=== PATIENT | male | born 1970 | race Caucasian/White ===

== ENCOUNTER 2016-11-04 13:26 | Emergency (ER) | payer BC ==
--- NOTE | 2016-11-04 13:58 | EDM.PDOC ---
ED HPI GI/ABDOMINAL - General Chief Complaint: Abdominal Pain Stated Complaint: ABD PAIN Time Seen by Provider: 11/04/16 13:38 Source of Information: Reports: Patient, RN notes reviewed - History of Present Illness INITIAL COMMENTS - FREE TEXT/NARRATIVE: 46-year-old male comes in with abdominal pain nausea vomiting. He does have history of chronic pancreatitis. He states he's been having pain off and on for months. This has become much more severe since last evening. Pain is primarily upper mid and left upper abdomen. He's had severe repetitive vomiting since last evening. Unable to sleep last night due to the pain and vomiting. Continues with the nausea vomiting today. No fever or chills. He has had some constipation difficulty. No chest pain or difficulty breathing. States his mouth is starting to get quite dry. 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.) Musculoskeletal History: Reports: Gout Psychiatric History: Reports: Addiction Other Psychiatric History: alcohol abuse - Infectious Disease History Infectious Disease History: Reports: Chicken pox - Past Surgical History GI Surgical History: Reports: Hernia, inguinal (Right side) Social & Family History - Family History HEENT: Reports: Glaucoma Cardiac: Reports: [place]pass, [place], Pacemaker, Other (see below) Other Cardiac Family History: stroke GI: Reports: Pancreatitis Other GI Family History: daughter had pancreas removed Endocrine/Metabolic: Reports: Diabetes, type II Other Endocrine/Metabolic Family History: diet controlled - Tobacco Use Smoking Status *Q: Heavy Tobacco Smoker Years of Tobacco use: 12 Packs/Tins Daily: 0.5 Month Tobacco Last Used: current Second Hand Smoke Exposure: Yes - Caffeine Use Caffeine Use: Reports: Coffee - Alcohol Use Days Per Week of Alcohol Use: 7 Number of Drinks Per Day: 6 Total Drinks Per Week: 42 - Recreational Drug Use Recreational Drug Use: No - Living Situation & Occupation Occupation: employed ED ROS GENERAL - Review of Systems Review Of Systems: See Below Constitutional: Reports: chills. Denies: fever, diaphoresis HEENT: Denies: Throat pain Respiratory: Denies: shortness of breath, wheezing, pleuritic chest pain Cardiovascular: Denies: Chest pain GI/Abdominal: Reports: Abdominal pain (upper midabdomen and left upper quadrant) , Constipation, Decreased appetite, Nausea, Vomiting (repetitive). Denies: Diarrhea Musculoskeletal: Reports: shoulder pain (occasional left shoulder pain) Skin: Reports: no symptoms Neurological: Reports: dizziness, weakness (mild ge). Denies: numbness, tingling ED EXAM, GI/ABD - Physical Exam Exam: See Below General Appearance: alert, moderate distress Throat/Mouth: Other (oral mucosa is dry) Head: atraumatic Neck: supple, full range of motion Respiratory/Chest: no respiratory distress, lungs clear, normal breath sounds Cardiovascular: regular rate, rhythm GI/Abdominal: tenderness (upper midabdomen and left upper quadrant), other ( hepatomegaly) Back Exam: No: CVA tenderness (L), CVA tenderness (R) Extremities: normal inspection. No: pedal edema, leg pain Neurological: alert, oriented, no motor/sensory deficits Skin Exam: Warm, Dry, Normal color Course - Vital Signs Last Recorded V/S: Last Vital Signs Temp 97.1 F 11/04/16 13:36 Pulse 82 11/04/16 16:30 Resp 14 11/04/16 16:30 BP 138/99 H 11/04/16 16:30 Pulse Ox 95 11/04/16 16:30 - Orders/Labs/Meds Orders: Active Orders 24 hr Category Date Time Status Peripheral IV Care [RC] . DIRECTED Care 11/04/16 13:53 Active Peripheral IV Insertion Adult [OM.PC] Stat Oth 11/04/16 13:53 Ordered Labs: Laboratory Tests 11/04/16 11/04/16 Range/Units 13:35 13:35 WBC 10.57 H (4.23-9.07) K/mm3 RBC 4.34 L (4.63-6.08) M/mm3 Hgb 14.6 (13.7-17.5) gm/L Hct 43.6 (40.1-51.0) % MCV 100.5 H (79.0-92.2) fl MCH 33.6 H (25.7-32.2) pg MCHC 33.5 (32.2-35.5) g/dl RDW Std Deviation 52.4 H (35.1-43.9) fL Plt Count 417 H (163-337) K/mm3 MPV 8.8 L (9.4-12.3) fl Neut % (Auto) 84.6 H (34.0-67.9) % Lymph % (Auto) 7.6 L (21.8-53.1) % Kidder % (Auto) 7.3 (5.3-12.2) % Eos % (Auto) 0 L (0.8-7.0) Baso % (Auto) 0.4 (0.1-1.2) % Neut # 8.95 H (1.78-5.38) K/mm3 Lymph # 0.80 L (1.32-3.57) K/mm3 Kidder # 0.77 (0.30-0.82) K/mm3 Eos # 0.00 L (0.04-0.54) K/mm3 Baso # 0.04 (0.01-0.08) K/mm3 Manual Slide Review Abnormal smear Sodium 139 (136-145) mEq/L Potassium 3.8 (3.5-5.1) mEq/L Chloride 99 (98-107) mEq/L Carbon Dioxide 29 (21-32) mEq/L Anion Gap 14.8 (5-15) BUN 9 (7-18) mg/dL Creatinine 0.9 (0.7-1.3) mg/dL Est Cr Clr Drug Dosing 96.35 mL/min Estimated GFR (MDRD) > 60 (>60) mL/min BUN/Creatinine Ratio 10.0 L (14-18) Glucose 161 H (74-106) mg/dL Calcium 8.7 (8.5-10.1) mg/dL Total Bilirubin 0.3 (0.2-1.0) mg/dL AST 17 (15-37) U/L ALT 16 (16-63) U/L Alkaline Phosphatase 201 H (46-116) U/L Total Protein 6.6 (6.4-8.2) g/dl Albumin 2.8 L (3.4-5.0) g/dl Globulin 3.8 gm/dL Albumin/Globulin Ratio 0.7 L (1-2) Amylase 76 (25-115) U/L Lipase 303 (73-393) U/L Meds: Medications Discontinued Medications Generic Name Dose Route Start Last Admin Trade Name Freq PRN Reason Stop Dose Admin Famotidine 20 mg 11/04/16 13:53 11/04/16 14:09 Pepcid IVPUSH 11/04/16 13:54 20 mg ONETIME ONE Administration Hydromorphone HCl 1 mg 11/04/16 13:53 11/04/16 14:08 Dilaudid IVPUSH 11/04/16 13:54 1 mg ONETIME ONE Administration Sodium Chloride 1,000 mls @ 999 mls/hr 11/04/16 14:00 11/04/16 14:10 Normal Saline IV 999 mls/hr ONETIME ÁNGELA Administration Metoclopramide HCl 10 mg 11/04/16 15:06 11/04/16 15:12 Reglan IVPUSH 11/04/16 15:07 10 mg ONETIME ONE Administration Ondansetron HCl 4 mg 11/04/16 13:53 11/04/16 14:09 Zofran IVPUSH 11/04/16 13:54 4 mg ONETIME ONE Administration Sodium Chloride 10 ml 11/04/16 13:53 11/04/16 14:09 Saline Flush FLUSH 10 ml ASDIRECTED PRN Administration Keep Vein Open - Re-Assessments/Exams Free Text/Narrative Re-Assessment/Exam: 11/04/16 15:05 feeling better after Zofran 4 mg IV Pepcid 20 mg IV and some IV fluid. We'll has about 600 cc of the 1 L normal saline to infuse. Am going to also give some Reglan IV. We will do that now. He states he has been constipated for this past week or more so that also could be adding to his discomfort. White blood count very mildly elevated around 11,000. Lipase and amylase today are normal. I have reviewed his CT report from [facility] done on October 21 just over 2 weeks ago. It did show 2 areas of a fluid accumulation, one relatively large. See report for details. Also of note he is waiting to hear from his providers nurse regarding arrangements to have "the area of fluid accumulation drained" resolving by interventional radiology either Isaac or [facility]. discharge instructions as documented Departure - Departure Time of Disposition: 15:43 Disposition: Home, Self-Care 01 Condition: fair Clinical Impression: Pancreatic pseudocyst, Constipation Abdominal pain Qualifiers: Abdominal location: upper abdomen, unspecified Qualified Code(s): R10.10 - Upper abdominal pain, unspecified Vomiting Qualifiers: Vomiting type: unspecified Vomiting Intractability: non-intractable Nausea presence: with nausea Qualified Code(s): R11.2 - Nausea with vomiting, unspecified Instructions: Abdominal Pain, Adult, [id number], Nausea and Vomiting, Adult Referrals: Pepe Sweeney MD [Primary Care Provider] - Forms: ED Department Discharge Additional Instructions: clear liquids until tomorrow morning, then careful bland diet as tolerated, Zofran if needed for further nausea or vomiting, Tylenol 2-3 times daily for mild to moderate discomfort as needed or hydrocodone if needed for more severe pain, do not take Tylenol and hydrocodone at the same time. Do not drive when taking hydrocodone. call Clinic in the morning to check on status of arrangements for drainage of your pseudocyst if you have not heard from the clinic by then, return to ED as needed - My Orders Last 24 Hours: My Active Orders 11/04/16 13:53 Peripheral IV Care [RC] . DIRECTED Peripheral IV Insertion Adult [OM.PC] Stat - Assessment/Plan Last 24 Hours: My Active Orders 11/04/16 13:53 Peripheral IV Care [RC] . DIRECTED Peripheral IV Insertion Adult [OM.PC] Stat
[2016-11-04] MEDS: HYDROmorphone 1 MG/ML Syringe IVPUSH ONE (14:08)
[2016-11-04] MEDS: Famotidine 20 MG/2 ML SDV IVPUSH ONE (14:09)
[2016-11-04] MEDS: Sodium Chloride 0.9% 10 ML Syringe FLUSH PRN (14:09)
[2016-11-04] MEDS: Ondansetron 4 MG/2 ML SDV IVPUSH ONE (14:09)
[2016-11-04] MEDS: Sodium Chloride 0.9% 1,000 ML IV SCH (14:10)
[2016-11-04] MEDS: Metoclopramide 10 MG/2 ML SDV IVPUSH ONE (15:12)
[2016-11-04 16:42] VITALS: BP 138/99
== END 2016-11-04 16:30 | disposition home or self-care (01) ==
LOC: JD.ED 13:26
DX: K86.3 Pseudocyst of pancreas (principal); K59.00 Constipation, unspecified; R11.2 Nausea with vomiting, unspecified; I10 Essential (primary) hypertension; F17.210 Nicotine dependence, cigarettes, uncomplicated; Z79.899 Other long term (current) drug therapy
CPT/HCPCS: 36415; 80053; 82150; 83690; 85025; 96361; 96374; 96375; 99284; J1170; J2405; J2765; J7040; J7050

== ENCOUNTER 2016-11-12 19:16 | Emergency (ER) | payer BC ==
[2016-11-12] MEDS ORDERED: Aspirin 81 MG Tab.Chew PO ONE (19:40)
[2016-11-12] MEDS ORDERED: HYDROmorphone 1 MG/ML Syringe IVPUSH ONE (19:42)
[2016-11-12] MEDS ORDERED: Ondansetron 4 MG/2 ML SDV IVPUSH ONE (19:42)
[2016-11-12] MEDS ORDERED: Sodium Chloride 0.9% 1,000 ML IV SCH (19:45)
[2016-11-12] MEDS: Nitroglycerin 0.4 MG Tab.SL SL PRN ×3 (19:47→20:32)
--- NOTE | 2016-11-12 19:48 | EDM.PDOC ---
ED HISTORY OF PRESENT ILLNESS - General Chief Complaint: Chest Pain Stated Complaint: CHEST PAINS Time Seen by Provider: 11/12/16 19:25 Source of Information: Reports: Patient History Limitations: Reports: No limitations - History of Present Illness INITIAL COMMENTS - FREE TEXT/NARRATIVE: This is a 46 y/o male. He was sitting watching TV when he had a gradual onset of substernal chest pain. It got worse and seemed to go to his neck and both his arms and axilla areas. Mild SOB, no nausea or vomiting noted. No sweating noted. He was lightheaded. He was brought to the ER for evaluation. The pain has decreased some but he describes it as 10/10. He does not appear to be in distress during the interview and exam. Deep breathing seems to make it worse to night. Pushing on the epigastric area also seems to make it worse. He did eat just before this some toast and a little bit of lasagna. He does have a hx of alcohol abuse and chronic pancreatitis and has been seen here several times for the flare up of his pancreas. Some where in the hx he tells me he has a pancreatic cyst. - Related Data Allergies/ADRs: Allergies Allergy/AdvReac Type Severity Reaction Status Date / Time No Known Allergies Allergy Verified 10/24/16 16:59 Home Meds: Home Meds Magnesium Chloride [Slow-Mag] 71.5 mg PO DAILY #60 tablet. 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.) Other Gastrointestinal History: 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 Musculoskeletal History: Reports: Gout Psychiatric History: Reports: Addiction Other Psychiatric History: alcohol abuse - Infectious Disease History Infectious Disease History: Reports: Chicken pox - Past Surgical History GI Surgical History: Reports: Hernia, inguinal Social & Family History - Family History Family Medical History: Noncontributory HEENT: Reports: Glaucoma Cardiac: Reports: [place]pass, [place], Pacemaker, Other (see below) Other Cardiac Family History: stroke GI: Reports: Pancreatitis Other GI Family History: daughter had pancreas removed Endocrine/Metabolic: Reports: Diabetes, type II Other Endocrine/Metabolic Family History: diet controlled - Tobacco Use Smoking Status *Q: Current Every Day Smoker Years of Tobacco use: 15 Packs/Tins Daily: 1 Month Tobacco Last Used: current Second Hand Smoke Exposure: Yes - Caffeine Use Caffeine Use: Reports: None - Alcohol Use Days Per Week of Alcohol Use: 7 Number of Drinks Per Day: 6 Total Drinks Per Week: 42 - Recreational Drug Use Recreational Drug Use: No - Living Situation & Occupation Occupation: employed ED ROS GENERAL - Review of Systems Review Of Systems: See Below Constitutional: Reports: malaise, fatigue. Denies: fever, chills HEENT: Reports: No symptoms Respiratory: Denies: shortness of breath, cough Cardiovascular: Reports: Chest pain. Denies: Edema Endocrine: Reports: no symptoms GI/Abdominal: Reports: Abdominal pain, Constipation, Decreased appetite. Denies : Nausea, Vomiting : Reports: no symptoms Musculoskeletal: Reports: no symptoms Skin: Reports: no symptoms Neurological: Reports: no symptoms Psychiatric: Reports: No symptoms Hematologic/Lymphatic: Reports: no symptoms Immunologic: Reports: no symptoms ED EXAM, GENERAL - Physical Exam Exam: See Below Exam Limited By: No limitations General Appearance: alert, WD/WN, no apparent distress Eye Exam: bilateral eye: normal inspection Ears: normal external exam Nose: normal inspection Throat/Mouth: Normal inspection, Normal lips, Normal voice, No airway compromise Head: normocephalic Neck: normal inspection, supple Respiratory/Chest: no respiratory distress, lungs clear, normal breath sounds Cardiovascular: regular rate, rhythm, no murmur, tachycardia GI/Abdominal: no distention, guarding, tender, other (Decrease bowel sounds noted. Very tender in the epigastric area and palpation there seems to increase his substernal chest pain. Lower abdomen does not appear tender.) Back Exam: full range of motion Extremities: normal inspection, normal range of motion Neurological: alert, oriented Psychiatric: flat affect Skin Exam: Warm, Dry. No: Diaphoretic EKG INTERPRETATION EKG Interpretation Comments: his EKG shows a sinus rhythm with tachycardia he does not appear to have an ST elevation and no significant ST depression noted. He might have a slightly prolonged QT interval. There are no acute changes noted Course - Vital Signs Last Recorded V/S: Last Vital Signs Temp 96.9 F 11/12/16 19:25 Pulse 107 H 11/12/16 19:25 Resp 22 H 11/12/16 19:25 BP 121/94 H 11/12/16 20:32 Pulse Ox 94 L 11/12/16 19:25 - Orders/Labs/Meds Orders: Active Orders 24 hr Category Date Time Status CXR [Chest 1V Frontal] [CR] Stat Exams 11/12/16 19:56 Taken Sodium Chloride 0.9% [Normal Saline] 1,000 ml Med 11/12/16 19:45 Active IV ASDIRECTED Medication Orders Sodium Chloride (Normal Saline) 1,000 mls @ 500 mls/hr IV ASDIRECTED ÁNGELA Last Admin: 11/12/16 20:05 Dose: 500 mls/hr Labs: Laboratory Tests 11/12/16 11/12/16 Range/Units 19:25 19:25 WBC 9.42 H (4.23-9.07) K/mm3 RBC 4.72 (4.63-6.08) M/mm3 Hgb 16.3 (13.7-17.5) gm/L Hct 47.5 (40.1-51.0) % MCV 100.6 H (79.0-92.2) fl MCH 34.5 H (25.7-32.2) pg MCHC 34.3 (32.2-35.5) g/dl RDW Std Deviation 57.7 H (35.1-43.9) fL Plt Count 305 (163-337) K/mm3 MPV 9.0 L (9.4-12.3) fl Neut % (Auto) 57.0 (34.0-67.9) % Lymph % (Auto) 30.7 (21.8-53.1) % Victoria % (Auto) 8.6 (5.3-12.2) % Eos % (Auto) 3.0 (0.8-7.0) Baso % (Auto) 0.5 (0.1-1.2) % Neut # 5.37 (1.78-5.38) K/mm3 Lymph # 2.89 (1.32-3.57) K/mm3 Victoria # 0.81 (0.30-0.82) K/mm3 Eos # 0.28 (0.04-0.54) K/mm3 Baso # 0.05 (0.01-0.08) K/mm3 Sodium 144 (136-145) mEq/L Potassium 3.3 L (3.5-5.1) mEq/L Chloride 105 (98-107) mEq/L Carbon Dioxide 27 (21-32) mEq/L Anion Gap 15.3 H (5-15) BUN 5 L (7-18) mg/dL Creatinine 0.7 (0.7-1.3) mg/dL Est Cr Clr Drug Dosing 125.55 mL/min Estimated GFR (MDRD) > 60 (>60) mL/min BUN/Creatinine Ratio 7.1 L (14-18) Glucose 143 H (74-106) mg/dL Calcium 8.4 L (8.5-10.1) mg/dL Total Bilirubin 0.2 (0.2-1.0) mg/dL AST 25 (15-37) U/L ALT 18 (16-63) U/L Alkaline Phosphatase 204 H (46-116) U/L CK-MB (CK-2) 0.6 (0-3.6) ng/ml Troponin I < 0.017 (0.00-0.056) ng/mL Total Protein 6.7 (6.4-8.2) g/dl Albumin 3.0 L (3.4-5.0) g/dl Globulin 3.7 gm/dL Albumin/Globulin Ratio 0.8 L (1-2) Amylase 89 (25-115) U/L Lipase 386 (73-393) U/L Ethyl Alcohol 0.25 (0.00) gm% Meds: Medications Generic Name Dose Route Start Last Admin Trade Name Freq PRN Reason Stop Dose Admin Sodium Chloride 1,000 mls @ 500 mls/hr 11/12/16 19:45 11/12/16 20:05 Normal Saline IV 500 mls/hr ASDIRECTED ÁNGELA Administration Discontinued Medications Generic Name Dose Route Start Last Admin Trade Name Freq PRN Reason Stop Dose Admin Aspirin 324 mg 11/12/16 19:40 11/12/16 19:53 Aspirin PO 11/12/16 19:41 324 mg ONETIME ONE Administration Hydromorphone HCl 1 mg 11/12/16 19:42 11/12/16 19:51 Dilaudid IVPUSH 11/12/16 19:43 1 mg ONETIME ONE Administration Nitroglycerin 0.4 mg 11/12/16 19:40 11/12/16 20:32 Nitrostat SL 11/12/16 19:51 0.4 mg Q5M PRN Administration Chest Pain Ondansetron HCl 4 mg 11/12/16 19:42 11/12/16 19:49 Zofran IVPUSH 11/12/16 19:43 4 mg ONETIME ONE Administration - Radiology Interpretation Free Text/Narrative:: chest x-ray does not show any acute changes or infiltrates - Re-Assessments/Exams Free Text/Narrative Re-Assessment/Exam: 11/12/16 21:35 vision is feeling much better. He states he has minimal pain and it seems to move down into his abdomen now and is not in his chest or his neck or his arms. He feels very comfortable and wants his fluids are in he wants to go home. 11/12/16 21:56 patient continues to feel good after the fluids are in. I talked to him about alcohol drinking and has chronic pancreatitis. I believe that this is more pancreatitis picture with some esophageal spasms possibly causing his substernal chest pain. As would explain why the nitroglycerin seemed to help his pain so dramatically as a muscle relaxer for the esophagus. His pain now seems to be in the mid upper abdomen but it is minimal. 11/12/16 22:04 I spoke to the family as well indicating that he really needs to avoid alcohol due to his chronic pancreatitis because it is always going to flareup. he is to continue taking his potassium pills as well and lots of fluids but avoid sodas and caffeine Departure - Departure Time of Disposition: 21:57 Disposition: Home, Self-Care 01 Condition: good Clinical Impression: Epigastric abdominal pain, Chronic pancreatitis due to acute alcohol intoxication, Atypical chest pain, Hypokalemia Referrals: Pepe Sweeney MD [Primary Care Provider] - Forms: ED Department Discharge Additional Instructions: please don't drink alcohol because that will flare up your chronic pancreatitis causing severe discomfort, continue with your potassium pills, continue drinking lots of fluids but you need to avoid sodas and caffeine, followup with your family doctor later this week for recheck or return to the ER if your symptoms worsen - My Orders Last 24 Hours: My Active Orders 11/12/16 19:45 Sodium Chloride 0.9% [Normal Saline] 1,000 ml IV ASDIRECTED 11/12/16 19:56 CXR [Chest 1V Frontal] [CR] Stat - Assessment/Plan Last 24 Hours: My Active Orders 11/12/16 19:45 Sodium Chloride 0.9% [Normal Saline] 1,000 ml IV ASDIRECTED 11/12/16 19:56 CXR [Chest 1V Frontal] [CR] Stat
[2016-11-12 22:30] VITALS: BP 119/90
--- NOTE | 2016-11-15 07:15 | CR ---
Chest: Portable view of the chest was obtained. Comparison: No prior chest x-ray. Heart size is normal. Mild tortuosity of the thoracic aorta is seen. Minimal density within the lateral left costophrenic angle is seen compatible with slight atelectasis or scarring. Lungs otherwise are clear. Impression: 1. Findings within the lateral left costophrenic angle felt to be incidental. 2. Nothing acute is identified on portable chest x-ray. Diagnostic code #2
== END 2016-11-12 22:18 | disposition home or self-care (01) ==
LOC: JD.ED 19:16
DX: R07.89 Other chest pain (principal); K86.0 Alcohol-induced chronic pancreatitis; E87.6 Hypokalemia; I10 Essential (primary) hypertension; Z98.890 Other specified postprocedural states; F17.210 Nicotine dependence, cigarettes, uncomplicated
CPT/HCPCS: 36415; 71010; 80053; 82150; 82553; 83690; 84484; 85025; 93005; 96361; 96374; 96375; 99285; A9270; G0480; J1170; J2405; J7040

== ENCOUNTER 2017-04-18 10:52 | Inpatient (IN) | payer OTHER ==
[2017-04-18] MEDS ORDERED: Iopamidol 755 Mg/ML 100 ML Bottle IVPUSH ONE (11:19)
[2017-04-18] MEDS ORDERED: Sodium Chloride 0.9% 10 ML Syringe FLUSH ONE (11:19)
[2017-04-18] MEDS: Sodium Chloride 0.9% 10 ML Syringe FLUSH PRN (11:23)
--- NOTE | 2017-04-18 11:26 | EDM.PDOC ---
ED HPI GENERAL MEDICAL PROBLEM - General Chief Complaint: Respiratory Problem Stated Complaint: SOB Time Seen by Provider: 04/18/17 11:00 Source of Information: Reports: Patient History Limitations: Reports: No Limitations - History of Present Illness INITIAL COMMENTS - FREE TEXT/NARRATIVE: 47-year-old male sent over from the clinic for evaluation of shortness of breath , chest pain and pleural effusion. Patient presented to his primary care provider's office today. They did a chest x-ray he was found to have a left- sided pleural effusion. He is sent over to us for further management and care. Patient reports that his current symptoms started a couple of weeks ago. Patient is currently complaining of substernal chest pain and pain behind his shoulder blades with the right being worse than the left. He is also complaining of shortness of breath. He denies any fevers, nausea, vomiting or edema. He states that he has gained about 15 pounds recently but this is been an intentional weight gain. He was 143 pounds after his pancreatitis. He states he is now 158 pounds. Patient has a history of chronic pancreatitis. He denies any history of heart problems including any congestive heart failure. Documented history of alcohol abuse. Chest Pain Score (Numeric/FACES): 5 - Related Data Allergies Allergy/AdvReac Type Severity Reaction Status Date / Time No Known Allergies Allergy Verified 04/18/17 11:01 Home Meds: Home Meds . [No Known Home Meds] 04/18/17 [History] Past Medical History HEENT History: Reports: None Cardiovascular History: Reports: Hypertension Gastrointestinal History: Reports: GERD, Pancreatitis Other Gastrointestinal History: 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 Musculoskeletal History: Reports: Gout Psychiatric History: Reports: Addiction Other Psychiatric History: alcohol abuse - Infectious Disease History Infectious Disease History: Reports: Chicken Pox - Past Surgical History GI Surgical History: Reports: Hernia, Inguinal Musculoskeletal Surgical History: Reports: None Social & Family History - Family History Family Medical History: Noncontributory HEENT: Reports: Glaucoma Cardiac: Reports: Bypass, [place], Pacemaker, Other (See Below) Other Cardiac Family History: stroke GI: Reports: Pancreatitis Other GI Family History: daughter had pancreas removed Endocrine/Metabolic: Reports: Diabetes, type II Other Endocrine/Metabolic Family History: diet controlled - Tobacco Use Smoking Status *Q: Current Every Day Smoker Years of Tobacco use: 20 Packs/Tins Daily: 1 Used Tobacco, but Quit: No Month Tobacco Last Used: current Second Hand Smoke Exposure: No - Caffeine Use Caffeine Use: Reports: Coffee, Tea - Alcohol Use Days Per Week of Alcohol Use: 7 Number of Drinks Per Day: 6 Total Drinks Per Week: 42 - Recreational Drug Use Recreational Drug Use: No - Living Situation & Occupation Occupation: Employed ED ROS GENERAL - Review of Systems Review Of Systems: See Below Constitutional: Reports: Weight Gain (intentional). Denies: Fever Respiratory: Reports: Shortness of Breath, Cough. Denies: Sputum Cardiovascular: Reports: Chest Pain, Orthopnea. Denies: Edema GI/Abdominal: Denies: Abdominal Pain, Nausea, Vomiting ED EXAM, GENERAL - Physical Exam Exam: See Below Exam Limited By: No Limitations General Appearance: Alert, WD/WN, No Apparent Distress Throat/Mouth: Normal Inspection, Normal Voice, No Airway Compromise Neck: Normal Inspection Respiratory/Chest: Decreased Breath Sounds (left lower lung base), Crackles ( bilateral lower lobes), Other (tachypnea) Cardiovascular: Normal Peripheral Pulses, Regular Rate, Rhythm, No Edema, No Murmur Peripheral Pulses: 2+: Radial (L), Radial (R), Posterior Tibial (L), Posterior Tibial (R), Dorsalis Pedis (L) GI/Abdominal: Soft, Non-Tender Neurological: Alert, Oriented, Normal Cognition Psychiatric: Normal Affect, Normal Mood Skin Exam: Warm, Dry, Normal Color EKG INTERPRETATION EKG Date: 04/18/17 Time: 11:25 Rhythm: NSR Rate (Beats/Min): 98 [place]: Normal P-Wave: Present QRS: Normal ST-T: Normal QT: Normal EKG Interpretation Comments: NSR at 98 bpm. Q waves in V1-V2. No acute changes. Reviewed by myself and Dr. Cedillo. Course - Vital Signs Last Recorded V/S: Last Vital Signs Temp 36.6 C 04/19/17 08:00 Pulse 82 04/19/17 09:48 Resp 16 04/19/17 08:00 BP 116/75 04/19/17 09:48 Pulse Ox 94 L 04/19/17 08:00 - Orders/Labs/Meds Orders: Active Orders 24 hr Category Date Time Status CIWAA Assessment [RC] Q4HR Care 04/18/17 13:48 Active Medication Orders Clonidine HCl (Catapres) 0.1 mg PO Q12HR [facility] Last Admin: 04/19/17 09:48 Dose: 0.1 mg Admin: 04/18/17 20:21 Dose: Not Given Admin: 04/18/17 20:20 Dose: 0.1 mg Enoxaparin Sodium (Lovenox) 40 mg SUBCUT DAILY [facility] Folic Acid (Folic Acid) 1 mg PO DAILY [facility] Last Admin: 04/19/17 09:48 Dose: 1 mg Sodium Chloride (Normal Saline) 100 mls @ 65 mls/hr IV ASDIRECTED [facility] Stop: 04/19/17 16:00 Last Admin: 04/19/17 12:40 Dose: 65 mls/hr Metoprolol Tartrate (Lopressor) 25 mg PO Q12HR [facility] Last Admin: 04/19/17 09:48 Dose: 25 mg Metoprolol Tartrate (Lopressor) 5 mg IVPUSH Q6H PRN PRN Reason: HR>120 Miscellaneous Information (Remove Patch) 0 ea TRDERM DAILY [facility] Last Admin: 04/19/17 09:50 Dose: 1 ea Nicotine (Habitrol) 21 mg TRDERM DAILY [facility] Last Admin: 04/19/17 09:49 Dose: 21 mg Admin: 04/18/17 17:07 Dose: 21 mg Sodium Chloride (Saline Flush) 10 ml FLUSH ASDIRECTED PRN PRN Reason: Keep Vein Open Last Admin: 04/19/17 12:40 Dose: 10 ml Admin: 04/18/17 11:23 Dose: 10 ml Sodium Chloride (Saline Flush) 10 ml FLUSH ONETIME PRN PRN Reason: IV FLUSH Stop: 04/19/17 16:00 Temazepam (Restoril) 15 mg PO BEDTIME PRN PRN Reason: Insomnia Last Admin: 04/18/17 20:45 Dose: 15 mg Thiamine HCl (Vitamin B-1) 100 mg PO BEDTIME [facility] Last Admin: 04/18/17 20:20 Dose: 100 mg Vitamin B Complex/Vit C/Folic Acid (Nephrocaps) 1 tab PO DAILY [facility] Last Admin: 04/19/17 09:51 Dose: 1 tab Labs: Laboratory Tests 04/18/17 04/18/17 04/18/17 Range/Units 11:22 11:22 11:58 WBC 11.63 H (4.23-9.07) K/mm3 RBC 4.66 (4.63-6.08) M/mm3 Hgb 16.3 (13.7-17.5) gm/L Hct 47.8 (40.1-51.0) % MCV 102.6 H (79.0-92.2) fl MCH 35.0 H (25.7-32.2) pg MCHC 34.1 (32.2-35.5) g/dl RDW Std Deviation 54.5 H (35.1-43.9) fL Plt Count 331 (163-337) K/mm3 MPV 9.4 (9.4-12.3) fl Neutrophils % (Manual) 72 H (40-60) % Band Neutrophils % 0 (0-10) % Lymphocytes % (Manual) 19 L (20-40) % Atypical Lymphs % 0 % Monocytes % (Manual) 6 (2-10) % Eosinophils % (Manual) 2 (0.8-7.0) % Basophils % (Manual) 1 (0.2-1.2) Platelet Estimate Adequate RBC Morph Comment Normal PT (8.0-13.0) SECONDS INR APTT (22-36) SECONDS Sodium 137 (136-145) mEq/L Potassium 2.9 L (3.5-5.1) mEq/L Chloride 100 (98-107) mEq/L Carbon Dioxide 31 (21-32) mEq/L Anion Gap 8.9 (5-15) BUN 7 (7-18) mg/dL Creatinine 0.8 (0.7-1.3) mg/dL Est Cr Clr Drug Dosing 114.47 mL/min Estimated GFR (MDRD) > 60 (>60) mL/min BUN/Creatinine Ratio 8.8 L (14-18) Glucose 122 H (74-106) mg/dL Lactic Acid (0.4-2.0) mmol/L Calcium 8.7 (8.5-10.1) mg/dL Magnesium 1.3 L (1.8-2.4) mg/dl Total Bilirubin 0.7 (0.2-1.0) mg/dL AST 20 (15-37) U/L ALT 14 L (16-63) U/L Alkaline Phosphatase 126 H (46-116) U/L CK-MB (CK-2) 1.2 (0-3.6) ng/ml Troponin I < 0.017 (0.00-0.056) ng/mL C-Reactive Protein 12.2 H* (<1.0) mg/dL Vtt-[id number]-Cqrhktrjsej Pept 91 (0-125) pg/mL Total Protein 6.3 L (6.4-8.2) g/dl Albumin 2.4 L (3.4-5.0) g/dl Globulin 3.9 gm/dL Albumin/Globulin Ratio 0.6 L (1-2) Lipase 332 (73-393) U/L Body Fluid Site Fluid Type Fluid Volume ML Fluid Color Fluid Appearance Fluid pH (4.5-10.0) Fluid WBC (0.20-0.60) k/mm*3 Fluid RBC (0.00-0.010) 10*6/uL Fluid Diff Comment Fluid Seg Neutrophils (0-25) % Fluid Lymphocytes (0-78) % Fl Polymorphonucl Cell Fld Meso/Macro/Monocyte Fluid Glucose mg/dL Fluid Total Protein gm/dl Fluid LDH U/L Fluid Amylase U/L Ethyl Alcohol 0.00 (0.00) gm% 04/18/17 04/18/17 04/18/17 Range/Units 12:05 12:25 14:35 WBC (4.23-9.07) K/mm3 RBC (4.63-6.08) M/mm3 Hgb (13.7-17.5) gm/L Hct (40.1-51.0) % MCV (79.0-92.2) fl MCH (25.7-32.2) pg MCHC (32.2-35.5) g/dl RDW Std Deviation (35.1-43.9) fL Plt Count (163-337) K/mm3 MPV (9.4-12.3) fl Neutrophils % (Manual) (40-60) % Band Neutrophils % (0-10) % Lymphocytes % (Manual) (20-40) % Atypical Lymphs % % Monocytes % (Manual) (2-10) % Eosinophils % (Manual) (0.8-7.0) % Basophils % (Manual) (0.2-1.2) Platelet Estimate RBC Morph Comment PT 10.4 (8.0-13.0) SECONDS INR 0.96 APTT 26 (22-36) SECONDS Sodium (136-145) mEq/L Potassium (3.5-5.1) mEq/L Chloride (98-107) mEq/L Carbon Dioxide (21-32) mEq/L Anion Gap (5-15) BUN (7-18) mg/dL Creatinine (0.7-1.3) mg/dL Est Cr Clr Drug Dosing mL/min Estimated GFR (MDRD) (>60) mL/min BUN/Creatinine Ratio (14-18) Glucose (74-106) mg/dL Lactic Acid 0.8 (0.4-2.0) mmol/L Calcium (8.5-10.1) mg/dL Magnesium (1.8-2.4) mg/dl Total Bilirubin (0.2-1.0) mg/dL AST (15-37) U/L ALT (16-63) U/L Alkaline Phosphatase (46-116) U/L CK-MB (CK-2) (0-3.6) ng/ml Troponin I (0.00-0.056) ng/mL C-Reactive Protein (<1.0) mg/dL [id number]-[id number]-Tzaajsrpvnn Pept (0-125) pg/mL Total Protein (6.4-8.2) g/dl Albumin (3.4-5.0) g/dl Globulin gm/dL Albumin/Globulin Ratio (1-2) Lipase (73-393) U/L Body Fluid Site Left lung Fluid Type Thoracentesis fluid Fluid Volume 2500 ML Fluid Color Brown Fluid Appearance Cloudy Fluid pH 8.5 (4.5-10.0) Fluid WBC 0.74 H (0.20-0.60) k/mm*3 Fluid RBC 0.027 H (0.00-0.010) 10*6/uL Fluid Diff Comment TNP Fluid Seg Neutrophils 24.0 (0-25) % Fluid Lymphocytes 4.0 (0-78) % Fl Polymorphonucl Cell Not Reportable Fld Meso/Macro/Monocyte 72 Fluid Glucose 98 mg/dL Fluid Total Protein 3.2 gm/dl Fluid LDH U/L Fluid Amylase 1492 U/L Ethyl Alcohol (0.00) gm% 04/18/ Range/Units 14:35 WBC (4.23-9.07) K/mm3 RBC (4.63-6.08) M/mm3 Hgb (13.7-17.5) gm/L Hct (40.1-51.0) % MCV (79.0-92.2) fl MCH (25.7-32.2) pg MCHC (32.2-35.5) g/dl RDW Std Deviation (35.1-43.9) fL Plt Count (163-337) K/mm3 MPV (9.4-12.3) fl Neutrophils % (Manual) (40-60) % Band Neutrophils % (0-10) % Lymphocytes % (Manual) (20-40) % Atypical Lymphs % % Monocytes % (Manual) (2-10) % Eosinophils % (Manual) (0.8-7.0) % Basophils % (Manual) (0.2-1.2) Platelet Estimate RBC Morph Comment PT (8.0-13.0) SECONDS INR APTT (22-36) SECONDS Sodium (136-145) mEq/L Potassium (3.5-5.1) mEq/L Chloride (98-107) mEq/L Carbon Dioxide (21-32) mEq/L Anion Gap (5-15) BUN (7-18) mg/dL Creatinine (0.7-1.3) mg/dL Est Cr Clr Drug Dosing mL/min Estimated GFR (MDRD) (>60) mL/min BUN/Creatinine Ratio (14-18) Glucose (74-106) mg/dL Lactic Acid (0.4-2.0) mmol/L Calcium (8.5-10.1) mg/dL Magnesium (1.8-2.4) mg/dl Total Bilirubin (0.2-1.0) mg/dL AST (15-37) U/L ALT (16-63) U/L Alkaline Phosphatase (46-116) U/L CK-MB (CK-2) (0-3.6) ng/ml Troponin I (0.00-0.056) ng/mL C-Reactive Protein (<1.0) mg/dL Mhb-O-Chshjvngsgz Pept (0-125) pg/mL Total Protein (6.4-8.2) g/dl Albumin (3.4-5.0) g/dl Globulin gm/dL Albumin/Globulin Ratio (1-2) Lipase (73-393) U/L Body Fluid Site Fluid Type Thoracentesis fluid Fluid Volume ML Fluid Color Fluid Appearance Fluid pH (4.5-10.0) Fluid WBC (0.20-0.60) k/mm*3 Fluid RBC (0.00-0.010) 10*6/uL Fluid Diff Comment Fluid Seg Neutrophils (0-25) % Fluid Lymphocytes (0-78) % Fl Polymorphonucl Cell Fld Meso/Macro/Monocyte Fluid Glucose mg/dL Fluid Total Protein gm/dl Fluid LDH 529 U/L Fluid Amylase U/L Ethyl Alcohol (0.00) gm% Meds: Medications Generic Name Dose Route Start Last Admin Trade Name Freq PRN Reason Stop Dose Admin Clonidine HCl 0.1 mg 04/18/17 20:00 04/19/17 09:48 Catapres PO 0.1 mg Q12HR ÁNGELA Administration Enoxaparin Sodium 40 mg 04/19/17 13:28 Lovenox SUBCUT DAILY ÁNGELA Folic Acid 1 mg 04/19/17 09:00 04/19/17 09:48 Folic Acid PO 1 mg DAILY ÁNGELA Administration Sodium Chloride 100 mls @ 65 mls/hr 04/19/17 12:30 04/19/17 12:40 Normal Saline IV 04/19/17 16:00 65 mls/hr ASDIRECTED ÁNGELA Administration Metoprolol Tartrate 25 mg 04/19/17 09:00 04/19/17 09:48 Lopressor PO 25 mg Q12HR ÁNGELA Administration Metoprolol Tartrate 5 mg 04/18/17 19:20 Lopressor IVPUSH Q6H PRN HR>120 Miscellaneous Information 0 ea 04/19/17 09:00 04/19/17 09:50 Remove Patch TRDERM 1 ea DAILY ÁNGELA Administration Nicotine 21 mg 04/18/17 17:00 04/19/17 09:49 Habitrol TRDERM 21 mg DAILY ÁNGELA Administration Sodium Chloride 10 ml 04/18/17 11:13 04/19/17 12:40 Saline Flush FLUSH 10 ml ASDIRECTED PRN Administration Keep Vein Open Sodium Chloride 10 ml 04/19/17 12:21 Saline Flush FLUSH 04/19/17 16:00 ONETIME PRN IV FLUSH Temazepam 15 mg 04/18/17 18:06 04/18/17 20:45 Restoril PO 15 mg BEDTIME PRN Administration Insomnia Thiamine HCl 100 mg 04/18/17 21:00 04/18/17 20:20 Vitamin B-1 PO 100 mg BEDTIME ÁNGELA Administration Vitamin B Complex/Vit C/Folic Acid 1 tab 04/19/17 09:00 04/19/17 09:51 Nephrocaps PO 1 tab DAILY ÁNGELA Administration Discontinued Medications Generic Name Dose Route Start Last Admin Trade Name Jayme PRN Reason Stop Dose Admin Clonidine HCl 0.1 mg 04/18/17 21:00 Catapres PO Q12HR ÁNGELA Enoxaparin Sodium 30 mg 04/19/17 09:00 04/19/17 09:51 Lovenox SUBCUT 30 mg DAILY ÁNGELA Administration Sodium Chloride 100 mls @ 60 mls/hr 04/18/17 11:30 04/18/17 11:31 Normal Saline IV 60 mls/hr ASDIRECTED ÁNGELA Administration Magnesium Sulfate 2 gm/ Premix 50 mls @ 25 mls/hr 04/18/17 13:36 04/18/17 13: 43 IV 04/18/17 15:35 25 mls/hr ONETIME ONE Administration Magnesium Sulfate 2 gm/ Premix 50 mls @ 25 mls/hr 04/18/17 18:03 04/18/17 18: 20 IV 04/18/17 20:02 25 mls/hr ONETIME ONE Administration Iopamidol 100 ml 04/18/17 11:19 04/18/17 11:31 Isovue-370 (76%) IVPUSH 04/18/17 11:20 100 ml ONETIME ONE Administration Iopamidol 100 ml 04/19/17 12:21 04/19/17 12:39 Isovue-370 (76%) IVPUSH 04/19/17 12:22 100 ml ONETIME ONE Administration Miscellaneous Information 1 ea 04/18/17 17:00 04/18/17 17:30 Remove Patch TRDERM Not Given DAILY ÁNGELA Potassium Chloride 60 meq 04/18/17 18:03 04/18/17 18:20 Potassium Chloride PO 04/18/17 18:04 60 meq ONETIME ONE Administration Potassium Chloride 40 meq 04/19/17 11:44 Klor-Con M20 PO 04/19/17 11:45 ONETIME ONE Sodium Chloride 10 ml 04/18/17 11:19 04/18/17 11:31 Saline Flush FLUSH 04/18/17 11:20 10 ml ONETIME ONE Administration - Radiology Interpretation Free Text/Narrative:: CT of the chest impression per Dr. Gómez: 1. Large left-sided pleural effusion and moderate right sided pleural effusion. Pleural effusions causes atelectasis which is most prominent on the left side. 2. No findings of PE. 3. Patchy areas of increased density within the right lung with differential as described. - Re-Assessments/Exams Free Text/Narrative Re-Assessment/Exam: 04/18/17 14:[address], labs and EKG with the patient. I discussed the case with Dr. Dietz, surgery on-call. He was suggested to do a thoracentesis and admit. Discussed case with Dr. De Guzman. She agrees to the admission if the patient would like to stay here versus going to [place]. She recommended we do a drug screen and see well. Patient elects to stay in [place]. Patient did report to me that he had several whiskey Cokes this weekend. Of note his alcohol was [address] Dietz who agrees to do the thoracentesis. He will do the thoracentesis here in the ER. Dr. Dietz has performed the thoracentesis. He took off 2-1/2 L of brown fluid suspicious for old blood. This is sent for evaluation. The patient became symptomatic therefore he was unable to take off any more fluid. Finding suspicious for a malignancy. Plan will be for the patient to go to the ICU. Departure - Departure Time of Disposition: 16:00 Disposition: Admitted As Inpatient 65 Condition: Poor Clinical Impression: Pleural effusion - Discharge Information - My Orders Last 24 Hours: My Active Orders 04/18/17 13:48 CIWAA Assessment [RC] Q4HR - Assessment/Plan Last 24 Hours: My Active Orders 04/18/17 13:48 CIWAA Assessment [RC] Q4HR
[2017-04-18] MEDS ORDERED: Sodium Chloride 0.9% 100 ML IV SCH (11:30)
--- NOTE | 2017-04-18 12:16 | CT ---
CT chest Technique: Multiple axial sections through the chest were obtained. Intravenous contrast was utilized. Study was performed as a pulmonary angiogram protocol. Comparison: Previous chest x-ray 11/12/16. Findings: Pulmonary arteries are well-opacified. No filling defects are seen to indicate pulmonary embolism. Large left-sided pleural effusion is seen. Pleural effusion causes compressive atelectasis within the left lung. Moderate size right sided pleural effusion is noted. Patchy areas of increased density are noted within the right chest which may represent areas of pneumonia, pulmonary vascular congestion or atelectasis. Mediastinum and hilar regions show no adenopathy or mass. Impression: 1. Large left-sided pleural effusion and moderate right-sided pleural effusion. Pleural effusions causes atelectasis which is most prominent on the left side. 2. No findings of pulmonary embolism. 3. Patchy areas of increased density within the right lung with differential as described above. Diagnostic code #3
[2017-04-18] MEDS ORDERED: Magnesium Sulfate/Water 2 GM in Premix Bag 1 BAG IV ONE ×2 (13:36→18:03)
--- NOTE | 2017-04-18 14:54 | PCM.OPNOTE ---
- General Post-Op/Procedure Note Date of Surgery/Procedure: 04/18/17 Operative Procedure(s): ultrasound-guided left thoracentesis Findings: 2.5 L of dark brown effusion fluid Pre Op Diagnosis: 1.Massive symptomatic bilateral pleural effusions of unknown etiology. 2.Respiratory insufficiency Post-Op Diagnosis: same Anesthesia Technique: Local Primary Surgeon: Kristopher Dietz Pathology: 2.5 L fluid EBL in mLs: 0 Complications: None Condition: Good Free Text/Narrative:: After placement of the patient in the upright position with monitoring, the 7 left intercostal space was identified by ultrasound to be a area of optimal thoracentesis needle insertion. This area was prepped and draped sterilely for the procedure. 10 mL of local analgesia was infused into the skin and subcutaneous tissues and into the intercostal space and the pleura. An 11 blade was used to make a small judy in the skin. The catheter and thoracentesis needle was inserted into the chest and directed in a left inferolateral direction. The needle was removed and the catheter was connected to suction bottles. 2.5 L of fluid were removed. The patient had some coughing and felt slightly warm so I aborted additional fluid removal. He was hemodynamically stable throughout the procedure. And there were no procedural complications. Post centesis chest x-ray showed a significant improvement in aeration of the left chest and no pneumothorax.
--- NOTE | 2017-04-18 15:10 | CR ---
Chest: Portable view of the chest was obtained. Comparison: Previous chest CT performed on the same day. Small to moderate-sized bilateral pleural effusions are seen. Atelectasis is seen within the left lung base. No pneumothorax is seen at this time. Heart size and mediastinum are normal. Bony structures are grossly intact. Impression: 1. Small to moderate sized bilateral pleural effusions are seen. Effusion decreased on left side from prior study. 2. Mild left basilar atelectasis with no pneumothorax. Diagnostic code #3
[2017-04-18] MEDS: Nicotine 21 MG/24 Hr Patch TRDERM SCH (17:07)
[2017-04-18] MEDS ORDERED: Potassium Chloride 10% 20 MEQ/15 ML Soln 30 ML UD Cup PO ONE (18:03)
--- NOTE | 2017-04-18 18:25 | PCM.HP ---
H&P History of Present Illness - General Date of Service: 04/18/17 Source of Information: Patient, Provider History Limitations: Reports: No Limitations - History of Present Illness Initial Comments - Free Text/Narative: 47 year old male with >15 pound wgt loss over 2-3 weeks; since Jun 2016-November 2016 also reported an additional weight loss of at least 40 pounds. He complained of chest pain with radiation to his shoulder blades. Denied orthopnea/PND, fever, N/V. He complained of SOB with exertion. He had a thoracentesis in the ED. At least 2.5 liters of brown fluid was removed. He has a known history of pancreatitis. He will be admitted to the ICU for close monitoring, impending ETOH withdrawal is anticipated. Onset of Symptoms: Reports: Gradual Duration of Symptoms: Reports: Week(s):, Getting Worse Location: Reports: Chest Severity: Moderate Improves with: Reports: Other (thoracentesis) Worsens with: Reports: Breathing Associated Symptoms: Reports: Chest Pain, Shortness of Breath, Weakness Chest Pain Score (Numeric/FACES): 5 - Related Data Allergies/Adverse Reactions: Allergies Allergy/AdvReac Type Severity Reaction Status Date / Time No Known Allergies Allergy Verified 04/18/17 11:01 Home Medications: Home Meds . [No Known Home Meds] 04/18/17 [History] Past Medical History HEENT History: Reports: None Cardiovascular History: Reports: Hypertension Other Respiratory History: pt denies hx of respiratory issues but was admitted for respiratory issues Gastrointestinal History: Reports: GERD, Pancreatitis Other Gastrointestinal History: 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 Musculoskeletal History: Reports: Gout, Other (See Below) Other Musculoskeletal History: patient states "episode of gout many years ago" Psychiatric History: Reports: Addiction Other Psychiatric History: alcohol abuse - Infectious Disease History Infectious Disease History: Reports: Chicken Pox - Past Surgical History Respiratory Surgical History: Reports: Thoracentesis GI Surgical History: Reports: Hernia, Inguinal Musculoskeletal Surgical History: Reports: None Social & Family History - Family History Family Medical History: Noncontributory HEENT: Reports: Glaucoma Cardiac: Reports: Bypass, [place], Pacemaker, Other (See Below) Other Cardiac Family History: stroke GI: Reports: Pancreatitis Other GI Family History: daughter had pancreas removed Endocrine/Metabolic: Reports: Diabetes, type II Other Endocrine/Metabolic Family History: diet controlled - Tobacco Use Smoking Status *Q: Current Every Day Smoker Years of Tobacco use: 10 Packs/Tins Daily: 1 Used Tobacco, but Quit: No Month Tobacco Last Used: current Second Hand Smoke Exposure: Yes - Caffeine Use Caffeine Use: Reports: Soda, Tea - Alcohol Use Days Per Week of Alcohol Use: 3 Number of Drinks Per Day: 1 Total Drinks Per Week: 3 Date of Last Drink: 04/16/17 Time of Last Drink: 21:00 - Recreational Drug Use Recreational Drug Use: No - Living Situation & Occupation Occupation: Employed H&P Review of Systems - Review of Systems: Review Of Systems: See Below General: Reports: Weakness, Fatigue HEENT: Reports: No Symptoms Pulmonary: Reports: Shortness of Breath, Pleuritic Chest Pain Cardiovascular: Reports: Dyspnea on Exertion Gastrointestinal: Reports: No Symptoms Genitourinary: Reports: No Symptoms Musculoskeletal: Reports: Shoulder Pain Skin: Reports: No Symptoms Psychiatric: Reports: No Symptoms Neurological: Reports: No Symptoms Exam - Exam Exam: See Below - Vital Signs Vital Signs: Last Vital Signs Temp 37.2 C 04/18/17 16:00 Pulse 107 H 04/18/17 10:57 Resp 19 04/18/17 16:00 BP 147/99 H 04/18/17 16:00 Pulse Ox 94 L 04/18/17 16:00 Weight: 67.993 kg - Exam Quality Assessment: Supplemental Oxygen, DVT Prophylaxis General: Alert, Oriented, Cooperative HEENT: Conjunctiva Clear, EOMI, Nares Patent, Normal Nasal Septum, Pupils Equal , Pupils Reactive Neck: Supple, Trachea Midline Lungs: Normal Respiratory Effort, Decreased Breath Sounds Cardiovascular: Regular Rate, Tachycardia GI/Abdominal Exam: Normal Bowel Sounds, Soft, Non-Tender, No Organomegaly, No Distention (Male) Exam: Deferred Rectal (Males) Exam: Deferred Back Exam: Normal Inspection Extremities: Normal Inspection, Non-Tender, No Pedal Edema, Normal Capillary Refill Skin: Warm, Dry, Intact Neurological: Cranial Nerves Intact, Normal Speech Neuro Extensive - Mental Status: Alert, Oriented x3, Normal Mood/Affect, Normal Cognition, Memory Intact Neuro Extensive - Motor, Sensory, Reflexes: CN II-XII Intact Psychiatric: Alert, Normal Affect, Normal Mood - Patient Data Lab Results Last 24 hrs: Laboratory Results - last 24 hr 04/18/17 04/18/17 Range/Units 17:05 17:05 Urine Color Yellow (Yellow) Urine Appearance Clear (Clear) Urine pH 7.0 (5.0-8.0) Ur Specific [place] 1.020 (1.005-1.030) Urine Protein Trace H (Negative) Urine Glucose (UA) Negative (Negative) Urine Ketones 1+ H (Negative) Urine Occult Blood 2+ H (Negative) Urine Nitrite Negative (Negative) Urine Bilirubin 1+ H (Negative) Urine Urobilinogen 4.0 H (0.2-1.0) Ur Leukocyte Esterase Negative (Negative) Urine RBC 30-40 H (0-5) /hpf Urine WBC 0-5 (0-5) /hpf Ur Epithelial Cells Not seen (0-5) /hpf Urine Bacteria Few (FEW) /hpf Urine Mucus Not seen (FEW) /hpf Urine Opiates Screen Negative (NEGATIVE) Ur Buprenorphine Scrn Negative (NEGATIVE) Ur Oxycodone Screen Negative (NEGATIVE) Urine Methadone Screen Negative (NEGATIVE) Ur Propoxyphene Screen Negative (NEGATIVE) Ur Barbiturates Screen Negative (NEGATIVE) Ur Tricyclics Screen Negative (NEGATIVE) Ur Phencyclidine Scrn Negative (NEGATIVE) Ur Amphetamine Screen Negative (NEGATIVE) U Methamphetamines Scrn Negative (NEGATIVE) U Benzodiazepines Scrn Negative (NEGATIVE) U Cocaine Metab Screen Negative (NEGATIVE) U Marijuana (THC) Screen Negative (NEGATIVE) Result Diagrams: 04/18/17 11:22 04/18/17 11:22 *Q Meaningful Use (ADM) - VTE *Q VTE Criteria *Q: - Stroke *Q Stroke Criteria *Q: - AMI *Q AMI Criteria *Q: - Problem List (1) Pleural effusion SNOMED Code(s): 35246434 ICD Code: J90 - PLEURAL EFFUSION, NOT ELSEWHERE CLASSIFIED Status: Acute Current Visit: Yes (2) Chronic pancreatitis due to acute alcohol intoxication SNOMED Code(s): 979162100, 720657110 ICD Code: K86.0 - ALCOHOL-INDUCED CHRONIC PANCREATITIS Status: Acute Current Visit: No (3) Fatty liver, alcoholic SNOMED Code(s): 02617533 ICD Code: K70.0 - ALCOHOLIC FATTY LIVER Status: Acute Current Visit: No (4) Hypokalemia SNOMED Code(s): 33498926 ICD Code: E87.6 - HYPOKALEMIA Status: Acute Current Visit: No (5) Hypomagnesemia SNOMED Code(s): 014222402 ICD Code: E83.42 - HYPOMAGNESEMIA Status: Acute Current Visit: No (6) Hypertension SNOMED Code(s): 65525489 ICD Code: I10 - ESSENTIAL (PRIMARY) HYPERTENSION Status: Chronic Current Visit: No Qualifiers: Hypertension type: essential hypertension Qualified Code(s): I10 - Essential (primary) hypertension Problem List Initiated/Reviewed/Updated: Yes Orders Last 24hrs: Active Orders 24 hr Category Date Time Status Activity as Tolerated [RC] .Routine Care 04/18/17 17:59 Active Antiembolic Devices [RC] PER UNIT ROUTINE Care 04/18/17 17:35 Active Head of Bed Elevation [RC] ASDIRECTED Care 04/18/17 18:02 Active Incentive Spirometry [RT Incentive Spirometry] [RC] Care 04/18/17 17:36 Active Q2HWA Up ad Nelia [RC] ASDIRECTED Care 04/18/17 17:35 Active Vital Signs [RC] Q4HR Care 04/18/17 17:59 Active Consult to Case Management [CONS] Routine Cons 04/18/17 18:04 Active Consult to Occupational Therapy [OT Evaluation and Cons 04/18/17 18:05 Active Treatment] [CONS] Routine Consult to Physical Therapy [PT Evaluation and Cons 04/18/17 18:05 Active Treatment] [CONS] Routine Regular Diet [DIET] Diet 04/18/17 Dinner Active AMYLASE,BODY FLUID [BF] Routine Lab 04/18/17 14:35 Results BASIC METABOLIC PANEL,BMP [CHEM] DAILY Lab 04/19/17 05:00 Ordered BASIC METABOLIC PANEL,BMP [CHEM] DAILY Lab 04/20/17 05:00 Ordered BASIC METABOLIC PANEL,BMP [CHEM] DAILY Lab 04/21/17 05:00 Ordered BASIC METABOLIC PANEL,BMP [CHEM] DAILY Lab 04/22/17 05:00 Ordered CBC WITH AUTO DIFF [HEME] DAILY Lab 04/19/17 05:00 Ordered CBC WITH AUTO DIFF [HEME] DAILY Lab 04/20/17 05:00 Ordered CBC WITH AUTO DIFF [HEME] DAILY Lab 04/21/17 05:00 Ordered CBC WITH AUTO DIFF [HEME] DAILY Lab 04/22/17 05:00 Ordered CELL COUNT,BODY FLUID [BF] Routine Lab 04/18/17 14:35 Results CRP [C-REACTIVE PROTEIN] [CHEM] DAILY Lab 04/19/17 05:00 Ordered CRP [C-REACTIVE PROTEIN] [CHEM] DAILY Lab 04/20/17 05:00 Ordered CRP [C-REACTIVE PROTEIN] [CHEM] DAILY Lab 04/21/17 05:00 Ordered CRP [C-REACTIVE PROTEIN] [CHEM] DAILY Lab 04/22/17 05:00 Ordered CULTURE AFB AND SMEAR [MREF] Routine Lab 04/18/17 14:35 Received CULTURE BODY FLUID + SMEAR [RM] Routine Lab 04/18/17 14:35 Received CULTURE FUNGUS [MREF] Routine Lab 04/18/17 14:35 Received GLUCOSE,BODY FLUID [BF] Routine Lab 04/18/17 14:35 Results LACTIC ACID [CHEM] DAILY Lab 04/19/17 05:00 Ordered LACTIC ACID [CHEM] DAILY Lab 04/20/17 05:00 Ordered LACTIC ACID [CHEM] DAILY Lab 04/21/17 05:00 Ordered LACTIC ACID [CHEM] DAILY Lab 04/22/17 05:00 Ordered MISC TEST Routine Lab 04/18/17 14:35 Received MISC TEST Routine Lab 04/18/17 14:35 Received PH,BODY FLUID [BF] Routine Lab 04/18/17 14:35 Results PROTEIN,BODY FLUID [BF] Routine Lab 04/18/17 14:35 Results Enoxaparin [Lovenox] Med 04/19/17 09:00 Active 30 mg SUBCUT DAILY Magnesium Sulfate/Water [Magnesium Sulfate 2 GM in Med 04/18/17 18:03 Active Water 50 ML] 2 gm Premix Bag 1 bag IV ONETIME Nicotine [Habitrol] Med 04/18/17 17:00 Active 21 mg TRDERM DAILY Remove Patch Med 04/18/17 17:00 Active 1 ea TRDERM DAILY Temazepam [Restoril] Med 04/18/17 18:06 Active 15 mg PO BEDTIME PRN Seizure Precautions [OM.PC] Routine Oth 04/18/17 18:02 Ordered FREDERICK Hose [Antiembolic Hose] [OM.PC] Routine Oth 04/18/17 17:35 Ordered Medication Orders Enoxaparin Sodium (Lovenox) 30 mg SUBCUT DAILY ÁNGELA Magnesium Sulfate 2 gm/ Premix 50 mls @ 25 mls/hr IV ONETIME ONE Stop: 04/18/17 20:02 Last Admin: 04/18/17 18:20 Dose: 25 mls/hr Miscellaneous Information (Remove Patch) 1 ea TRDERM DAILY [facility] Last Admin: 04/18/17 17:30 Dose: Nicotine (Habitrol) 21 mg TRDERM DAILY [facility] Last Admin: 04/18/17 17:07 Dose: 21 mg Sodium Chloride (Saline Flush) 10 ml FLUSH ASDIRECTED PRN PRN Reason: Keep Vein Open Last Admin: 04/18/17 11:23 Dose: 10 ml Temazepam (Restoril) 15 mg PO BEDTIME PRN PRN Reason: Insomnia Assessment/Plan Comment:: Impression: Bilateral pleural effusion, suspect exudate likely malignancy >40 pound weight loss documented 06/20-11/19. History of chronic pancreatitis History of fatty liver GERD Plan: IVF Empiric Rx for CAP Pain meds CIWA Daily labs SZ precautions Resume home BP meds Serial CXRs DVT/GI prophylaxis
[2017-04-18] MEDS ORDERED: Metoprolol Tartrate 5 MG/5 ML SDV IVPUSH PRN (19:20)
[2017-04-18] MEDS: cloNIDine 0.1 MG Tab PO SCH ×2 (20:20→20:21)
[2017-04-18] MEDS: Thiamine 100 MG Tab PO SCH (20:20)
[2017-04-18] MEDS: Temazepam 15 MG Cap PO PRN (20:45)
[2017-04-18] MEDS ORDERED: cloNIDine 0.1 MG Tab PO SCH (21:00)
--- NOTE | 2017-04-19 08:42 | CR ---
Chest: Frontal view of the chest was obtained. Comparison: Previous chest x-ray of 04/18/17. Left-sided pleural effusion is increasing in size from prior exam. Increasing density is noted within the left mid and lower lung from prior exam. Small to moderate size right-sided pleural effusion is stable. Heart size and mediastinum are within normal limits. Bony structures are grossly intact. Impression: 1. Increasing left-sided pleural effusion from previous exam. Stable right sided pleural effusion. 2. Increasing density within the left mid to lower lung from prior exam. Differential includes increased atelectasis, aspiration or developing pneumonia. 3. No findings of pneumothorax are seen. Diagnostic code #3
--- NOTE | 2017-04-19 08:52 | PCM.CONSN ---
- General Info Date of Service: 04/19/17 Functional Status: Reports: Pain Controlled - Review of Systems General: Reports: Other (Feels better) Pulmonary: Reports: Other (Breathing easier) - Patient Data Vitals - Most Recent: Last Vital Signs Temp 36.5 C 04/19/17 04:00 Pulse 73 04/19/17 04:00 Resp 18 04/19/17 04:00 BP 99/64 04/19/17 04:00 Pulse Ox 95 04/19/17 04:00 Weight - Most Recent: 69.763 kg I&O - Last 24 Hours: Intake & Output 04/18/17 04/19/17 04/19/17 22:59 06:59 14:59 Intake Total 240 650 Output Total 250 Balance -10 650 Lab Results Last 24 Hours: Laboratory Results - last 24 hr 04/18/17 04/18/17 04/19/17 Range/Units 17:05 17:05 05:56 WBC 12.06 H (4.23-9.07) K/mm3 RBC 4.13 L (4.63-6.08) M/mm3 Hgb 14.7 (13.7-17.5) gm/L Hct 42.8 (40.1-51.0) % MCV 103.6 H (79.0-92.2) fl MCH 35.6 H (25.7-32.2) pg MCHC 34.3 (32.2-35.5) g/dl RDW Std Deviation 53.0 H (35.1-43.9) fL Plt Count 327 (163-337) K/mm3 MPV 9.4 (9.4-12.3) fl Neut % (Auto) 79.5 H (34.0-67.9) % Lymph % (Auto) 8.7 L (21.8-53.1) % [place] % (Auto) 9.7 (5.3-12.2) % Eos % (Auto) 1.7 (0.8-7.0) Baso % (Auto) 0.4 (0.1-1.2) % Neut # (Auto) 9.59 H (1.78-5.38) K/mm3 Lymph # (Auto) 1.05 L (1.32-3.57) K/mm3 [place] # (Auto) 1.17 H (0.30-0.82) K/mm3 Eos # (Auto) 0.20 (0.04-0.54) K/mm3 Baso # (Auto) 0.05 (0.01-0.08) K/mm3 Manual Slide Review Abnormal smear D-Dimer, Quantitative (0.19-0.59) mg/L Sodium (136-145) mEq/L Potassium (3.5-5.1) mEq/L Chloride (98-107) mEq/L Carbon Dioxide (21-32) mEq/L Anion Gap (5-15) BUN (7-18) mg/dL Creatinine (0.7-1.3) mg/dL Est Cr Clr Drug Dosing mL/min Estimated GFR (MDRD) (>60) mL/min BUN/Creatinine Ratio (14-18) Glucose (74-106) mg/dL Lactic Acid (0.4-2.0) mmol/L Calcium (8.5-10.1) mg/dL Troponin I (0.00-0.056) ng/mL C-Reactive Protein (<1.0) mg/dL Vitamin B12 (193-986) pg/ml Folate (8.6-58.9) ng/mL Urine Color Yellow (Yellow) Urine Appearance Clear (Clear) Urine pH 7.0 (5.0-8.0) Ur Specific [place] 1.020 (1.005-1.030) Urine Protein Trace H (Negative) Urine Glucose (UA) Negative (Negative) Urine Ketones 1+ H (Negative) Urine Occult Blood 2+ H (Negative) Urine Nitrite Negative (Negative) Urine Bilirubin 1+ H (Negative) Urine Urobilinogen 4.0 H (0.2-1.0) Ur Leukocyte Esterase Negative (Negative) Urine RBC 30-40 H (0-5) /hpf Urine WBC 0-5 (0-5) /hpf Ur Epithelial Cells Not seen (0-5) /hpf Urine Bacteria Few (FEW) /hpf Urine Mucus Not seen (FEW) /hpf Urine Opiates Screen Negative (NEGATIVE) Ur Buprenorphine Scrn Negative (NEGATIVE) Ur Oxycodone Screen Negative (NEGATIVE) Urine Methadone Screen Negative (NEGATIVE) Ur Propoxyphene Screen Negative (NEGATIVE) Ur Barbiturates Screen Negative (NEGATIVE) Ur Tricyclics Screen Negative (NEGATIVE) Ur Phencyclidine Scrn Negative (NEGATIVE) Ur Amphetamine Screen Negative (NEGATIVE) U Methamphetamines Scrn Negative (NEGATIVE) U Benzodiazepines Scrn Negative (NEGATIVE) U Cocaine Metab Screen Negative (NEGATIVE) U Marijuana (THC) Screen Negative (NEGATIVE) 04/19/17 04/19/17 04/19/17 Range/Units 05:56 05:56 05:56 WBC (4.23-9.07) K/mm3 RBC (4.63-6.08) M/mm3 Hgb (13.7-17.5) gm/L Hct (40.1-51.0) % MCV (79.0-92.2) fl MCH (25.7-32.2) pg MCHC (32.2-35.5) g/dl RDW Std Deviation (35.1-43.9) fL Plt Count (163-337) K/mm3 MPV (9.4-12.3) fl Neut % (Auto) (34.0-67.9) % Lymph % (Auto) (21.8-53.1) % [place] % (Auto) (5.3-12.2) % Eos % (Auto) (0.8-7.0) Baso % (Auto) (0.1-1.2) % Neut # (Auto) (1.78-5.38) K/mm3 Lymph # (Auto) (1.32-3.57) K/mm3 [place] # (Auto) (0.30-0.82) K/mm3 Eos # (Auto) (0.04-0.54) K/mm3 Baso # (Auto) (0.01-0.08) K/mm3 Manual Slide Review D-Dimer, Quantitative 2.74 H (0.19-0.59) mg/L Sodium 138 (136-145) mEq/L Potassium 3.4 L (3.5-5.1) mEq/L Chloride 102 (98-107) mEq/L Carbon Dioxide 31 (21-32) mEq/L Anion Gap 8.4 (5-15) BUN 7 (7-18) mg/dL Creatinine 0.7 (0.7-1.3) mg/dL Est Cr Clr Drug Dosing 127.34 mL/min Estimated GFR (MDRD) > 60 (>60) mL/min BUN/Creatinine Ratio 10.0 L (14-18) Glucose 121 H (74-106) mg/dL Lactic Acid 0.7 (0.4-2.0) mmol/L Calcium 8.1 L (8.5-10.1) mg/dL Troponin I < 0.017 (0.00-0.056) ng/mL C-Reactive Protein 10.2 H* (<1.0) mg/dL Vitamin B12 (193-986) pg/ml Folate (8.6-58.9) ng/mL Urine Color (Yellow) Urine Appearance (Clear) Urine pH (5.0-8.0) Ur Specific [place] (1.005-1.030) Urine Protein (Negative) Urine Glucose (UA) (Negative) Urine Ketones (Negative) Urine Occult Blood (Negative) Urine Nitrite (Negative) Urine Bilirubin (Negative) Urine Urobilinogen (0.2-1.0) Ur Leukocyte Esterase (Negative) Urine RBC (0-5) /hpf Urine WBC (0-5) /hpf Ur Epithelial Cells (0-5) /hpf Urine Bacteria (FEW) /hpf Urine Mucus (FEW) /hpf Urine Opiates Screen (NEGATIVE) Ur Buprenorphine Scrn (NEGATIVE) Ur Oxycodone Screen (NEGATIVE) Urine Methadone Screen (NEGATIVE) Ur Propoxyphene Screen (NEGATIVE) Ur Barbiturates Screen (NEGATIVE) Ur Tricyclics Screen (NEGATIVE) Ur Phencyclidine Scrn (NEGATIVE) Ur Amphetamine Screen (NEGATIVE) U Methamphetamines Scrn (NEGATIVE) U Benzodiazepines Scrn (NEGATIVE) U Cocaine Metab Screen (NEGATIVE) U Marijuana (THC) Screen (NEGATIVE) 04/19/17 Range/Units 05:56 WBC (4.23-9.07) K/mm3 RBC (4.63-6.08) M/mm3 Hgb (13.7-17.5) gm/L Hct (40.1-51.0) % MCV (79.0-92.2) fl MCH (25.7-32.2) pg MCHC (32.2-35.5) g/dl RDW Std Deviation (35.1-43.9) fL Plt Count (163-337) K/mm3 MPV (9.4-12.3) fl Neut % (Auto) (34.0-67.9) % Lymph % (Auto) (21.8-53.1) % [place] % (Auto) (5.3-12.2) % Eos % (Auto) (0.8-7.0) Baso % (Auto) (0.1-1.2) % Neut # (Auto) (1.78-5.38) K/mm3 Lymph # (Auto) (1.32-3.57) K/mm3 [place] # (Auto) (0.30-0.82) K/mm3 Eos # (Auto) (0.04-0.54) K/mm3 Baso # (Auto) (0.01-0.08) K/mm3 Manual Slide Review D-Dimer, Quantitative (0.19-0.59) mg/L Sodium (136-145) mEq/L Potassium (3.5-5.1) mEq/L Chloride (98-107) mEq/L Carbon Dioxide (21-32) mEq/L Anion Gap (5-15) BUN (7-18) mg/dL Creatinine (0.7-1.3) mg/dL Est Cr Clr Drug Dosing mL/min Estimated GFR (MDRD) (>60) mL/min BUN/Creatinine Ratio (14-18) Glucose (74-106) mg/dL Lactic Acid (0.4-2.0) mmol/L Calcium (8.5-10.1) mg/dL Troponin I (0.00-0.056) ng/mL C-Reactive Protein (<1.0) mg/dL Vitamin B12 442 (193-986) pg/ml Folate 10.0 (8.6-58.9) ng/mL Urine Color (Yellow) Urine Appearance (Clear) Urine pH (5.0-8.0) Ur Specific [place] (1.005-1.030) Urine Protein (Negative) Urine Glucose (UA) (Negative) Urine Ketones (Negative) Urine Occult Blood (Negative) Urine Nitrite (Negative) Urine Bilirubin (Negative) Urine Urobilinogen (0.2-1.0) Ur Leukocyte Esterase (Negative) Urine RBC (0-5) /hpf Urine WBC (0-5) /hpf Ur Epithelial Cells (0-5) /hpf Urine Bacteria (FEW) /hpf Urine Mucus (FEW) /hpf Urine Opiates Screen (NEGATIVE) Ur Buprenorphine Scrn (NEGATIVE) Ur Oxycodone Screen (NEGATIVE) Urine Methadone Screen (NEGATIVE) Ur Propoxyphene Screen (NEGATIVE) Ur Barbiturates Screen (NEGATIVE) Ur Tricyclics Screen (NEGATIVE) Ur Phencyclidine Scrn (NEGATIVE) Ur Amphetamine Screen (NEGATIVE) U Methamphetamines Scrn (NEGATIVE) U Benzodiazepines Scrn (NEGATIVE) U Cocaine Metab Screen (NEGATIVE) U Marijuana (THC) Screen (NEGATIVE) Med Orders - Current: Current Medications Clonidine HCl (Catapres) 0.1 mg PO Q12HR [facility] Last Admin: 04/18/17 20:21 Dose: Not Given Enoxaparin Sodium (Lovenox) 30 mg SUBCUT DAILY [facility] Folic Acid (Folic Acid) 1 mg PO DAILY ÁNGELA Metoprolol Tartrate (Lopressor) 25 mg PO Q12HR ÁNGELA Metoprolol Tartrate (Lopressor) 5 mg IVPUSH Q6H PRN PRN Reason: HR>120 Miscellaneous Information (Remove Patch) 0 ea TRDERM DAILY [facility] Nicotine (Habitrol) 21 mg TRDERM DAILY [facility] Last Admin: 04/18/17 17:07 Dose: 21 mg Sodium Chloride (Saline Flush) 10 ml FLUSH ASDIRECTED PRN PRN Reason: Keep Vein Open Last Admin: 04/18/17 11:23 Dose: 10 ml Temazepam (Restoril) 15 mg PO BEDTIME PRN PRN Reason: Insomnia Last Admin: 04/18/17 20:45 Dose: 15 mg Thiamine HCl (Vitamin B-1) 100 mg PO BEDTIME ÁNGELA Last Admin: 04/18/17 20:20 Dose: 100 mg Vitamin B Complex/Vit C/Folic Acid (Nephrocaps) 1 tab PO DAILY [facility] Discontinued Medications Clonidine HCl (Catapres) 0.1 mg PO Q12HR [facility] Sodium Chloride (Normal Saline) 100 mls @ 60 mls/hr IV ASDIRECTED ÁNGELA Last Admin: 04/18/17 11:31 Dose: 60 mls/hr Magnesium Sulfate 2 gm/ Premix 50 mls @ 25 mls/hr IV ONETIME ONE Stop: 04/18/17 15:35 Last Admin: 04/18/17 13:43 Dose: 25 mls/hr Magnesium Sulfate 2 gm/ Premix 50 mls @ 25 mls/hr IV ONETIME ONE Stop: 04/18/17 20:02 Last Admin: 04/18/17 18:20 Dose: 25 mls/hr Iopamidol (Isovue-370 (76%)) 100 ml IVPUSH ONETIME ONE Stop: 04/18/17 11:20 Last Admin: 04/18/17 11:31 Dose: 100 ml Miscellaneous Information (Remove Patch) 1 ea LUNADERSuly DAILY ÁNGELA Last Admin: 04/18/17 17:30 Dose: Not Given Potassium Chloride (Potassium Chloride) 60 meq PO ONETIME ONE Stop: 04/18/17 18:04 Last Admin: 04/18/17 18:20 Dose: 60 meq Sodium Chloride (Saline Flush) 10 ml FLUSH ONETIME ONE Stop: 04/18/17 11:20 Last Admin: 04/18/17 11:31 Dose: 10 ml - Exam General: Alert, Oriented, Cooperative, No Acute Distress Lungs: Other (Improved work of breathing) Consult PN Assessment/Plan Procedures: Procedures ASSAY OF AMYLASE (11/12/16) ASSAY OF LIPASE (11/12/16) ASSAY OF MAGNESIUM (10/24/16) ASSAY OF TROPONIN QUANT (11/12/16) C-REACTIVE PROTEIN (10/24/16) CHEST X-RAY 1 VIEW FRONTAL (11/12/16) COMPLETE CBC W/AUTO DIFF WBC (11/12/16) COMPREHEN METABOLIC PANEL (11/12/16) CREATINE MB FRACTION (11/12/16) ELECTROCARDIOGRAM TRACING (11/12/16) EMERGENCY DEPT VISIT (11/12/16) EMERGENCY DEPT VISIT (11/04/16) HYDRATE IV INFUSION ADD-ON (11/12/16) ROUTINE VENIPUNCTURE (11/12/16) TEST FOR ACETONE/KETONES (10/24/16) THER/PROPH/DIAG INJ IV PUSH (11/12/16) THER/PROPH/DIAG IV INF ADDON (10/24/16) THER/PROPH/DIAG IV INF INIT (10/24/16) TX/PRO/DX INJ NEW DRUG ADDON (11/12/16) (1) Pleural effusion SNOMED Code(s): 44870646 Code(s): J90 - PLEURAL EFFUSION, NOT ELSEWHERE CLASSIFIED Current Visit: Yes Problem List Initiated/Reviewed/Updated: Yes My Orders Last 24 Hours: imp: Clinically improved. Chest x-ray shows no pneumothorax. Difficult to believe radiologist's interpretation of increased fluid in the left chest after 2.5 L were removed yesterday. plan: Per hospitalist service. Will sign off.
[2017-04-19] MEDS ORDERED: Enoxaparin 30 MG/0.3 ML Syringe SUBCUT SCH (09:00)
[2017-04-19] MEDS: Folic Acid 1 MG Tab PO SCH (09:48)
[2017-04-19] MEDS: Metoprolol Tartrate 25 MG Tab PO SCH ×2 (09:48→20:33)
[2017-04-19] MEDS: cloNIDine 0.1 MG Tab PO SCH ×2 (09:48→20:34)
[2017-04-19] MEDS: Nicotine 21 MG/24 Hr Patch TRDERM SCH (09:49)
[2017-04-19] MEDS: Biotin/Folic Acid/Vitamin C/Vitamin B Complex Tab PO SCH (09:51)
--- NOTE | 2017-04-19 11:31 | PCM.PN ---
- General Info Date of Service: 04/19/17 - Review of Systems General: Reports: No Symptoms Pulmonary: Reports: Shortness of Breath (Improved after thoracentesis), Cough, Sputum (Clear) Cardiovascular: Reports: No Symptoms Gastrointestinal: Reports: No Symptoms Musculoskeletal: Reports: Back Pain (Pain inferior right scapula when he coughs or moves in bed) Systems Review Comment:: He says it is easier to breath since he had the thoracentesis yesterday. He has been coughing with clear sputum production. He says this is normal, typically worse in the morning with clear sputum. He has pain on his back inferior to his scapula that hurts worse when he coughs or turns in bed. He has not had chest pain or palpitations. - Patient Data Vitals - Most Recent: Last Vital Signs Temp 97.8 F 04/19/17 08:00 Pulse 82 04/19/17 09:48 Resp 16 04/19/17 08:00 BP 116/75 04/19/17 09:48 Pulse Ox 94 L 04/19/17 08:00 Weight - Most Recent: 153 lb 12.8 oz I&O - Last 24 Hours: Intake & Output 04/18/17 04/19/17 04/19/17 22:59 06:59 14:59 Intake Total 240 650 300 Output Total 250 Balance -10 650 300 Lab Results Last 24 Hours: Laboratory Results - last 24 hr 04/18/17 04/18/17 04/19/17 Range/Units 17:05 17:05 05:56 WBC 12.06 H (4.23-9.07) K/mm3 RBC 4.13 L (4.63-6.08) M/mm3 Hgb 14.7 (13.7-17.5) gm/L Hct 42.8 (40.1-51.0) % MCV 103.6 H (79.0-92.2) fl MCH 35.6 H (25.7-32.2) pg MCHC 34.3 (32.2-35.5) g/dl RDW Std Deviation 53.0 H (35.1-43.9) fL Plt Count 327 (163-337) K/mm3 MPV 9.4 (9.4-12.3) fl Neut % (Auto) 79.5 H (34.0-67.9) % Lymph % (Auto) 8.7 L (21.8-53.1) % Sawyer % (Auto) 9.7 (5.3-12.2) % Eos % (Auto) 1.7 (0.8-7.0) Baso % (Auto) 0.4 (0.1-1.2) % Neut # (Auto) 9.59 H (1.78-5.38) K/mm3 Lymph # (Auto) 1.05 L (1.32-3.57) K/mm3 Sawyer # (Auto) 1.17 H (0.30-0.82) K/mm3 Eos # (Auto) 0.20 (0.04-0.54) K/mm3 Baso # (Auto) 0.05 (0.01-0.08) K/mm3 Manual Slide Review Abnormal smear D-Dimer, Quantitative (0.19-0.59) mg/L Sodium (136-145) mEq/L Potassium (3.5-5.1) mEq/L Chloride (98-107) mEq/L Carbon Dioxide (21-32) mEq/L Anion Gap (5-15) BUN (7-18) mg/dL Creatinine (0.7-1.3) mg/dL Est Cr Clr Drug Dosing mL/min Estimated GFR (MDRD) (>60) mL/min BUN/Creatinine Ratio (14-18) Glucose (74-106) mg/dL Lactic Acid (0.4-2.0) mmol/L Calcium (8.5-10.1) mg/dL Troponin I (0.00-0.056) ng/mL C-Reactive Protein (<1.0) mg/dL Vitamin B12 (193-986) pg/ml Folate (8.6-58.9) ng/mL Urine Color Yellow (Yellow) Urine Appearance Clear (Clear) Urine pH 7.0 (5.0-8.0) Ur Specific Deer 1.020 (1.005-1.030) Urine Protein Trace H (Negative) Urine Glucose (UA) Negative (Negative) Urine Ketones 1+ H (Negative) Urine Occult Blood 2+ H (Negative) Urine Nitrite Negative (Negative) Urine Bilirubin 1+ H (Negative) Urine Urobilinogen 4.0 H (0.2-1.0) Ur Leukocyte Esterase Negative (Negative) Urine RBC 30-40 H (0-5) /hpf Urine WBC 0-5 (0-5) /hpf Ur Epithelial Cells Not seen (0-5) /hpf Urine Bacteria Few (FEW) /hpf Urine Mucus Not seen (FEW) /hpf Urine Opiates Screen Negative (NEGATIVE) Ur Buprenorphine Scrn Negative (NEGATIVE) Ur Oxycodone Screen Negative (NEGATIVE) Urine Methadone Screen Negative (NEGATIVE) Ur Propoxyphene Screen Negative (NEGATIVE) Ur Barbiturates Screen Negative (NEGATIVE) Ur Tricyclics Screen Negative (NEGATIVE) Ur Phencyclidine Scrn Negative (NEGATIVE) Ur Amphetamine Screen Negative (NEGATIVE) U Methamphetamines Scrn Negative (NEGATIVE) U Benzodiazepines Scrn Negative (NEGATIVE) U Cocaine Metab Screen Negative (NEGATIVE) U Marijuana (THC) Screen Negative (NEGATIVE) 04/19/17 04/19/17 04/19/17 Range/Units 05:56 05:56 05:56 WBC (4.23-9.07) K/mm3 RBC (4.63-6.08) M/mm3 Hgb (13.7-17.5) gm/L Hct (40.1-51.0) % MCV (79.0-92.2) fl MCH (25.7-32.2) pg MCHC (32.2-35.5) g/dl RDW Std Deviation (35.1-43.9) fL Plt Count (163-337) K/mm3 MPV (9.4-12.3) fl Neut % (Auto) (34.0-67.9) % Lymph % (Auto) (21.8-53.1) % Sawyer % (Auto) (5.3-12.2) % Eos % (Auto) (0.8-7.0) Baso % (Auto) (0.1-1.2) % Neut # (Auto) (1.78-5.38) K/mm3 Lymph # (Auto) (1.32-3.57) K/mm3 Sawyer # (Auto) (0.30-0.82) K/mm3 Eos # (Auto) (0.04-0.54) K/mm3 Baso # (Auto) (0.01-0.08) K/mm3 Manual Slide Review D-Dimer, Quantitative 2.74 H (0.19-0.59) mg/L Sodium 138 (136-145) mEq/L Potassium 3.4 L (3.5-5.1) mEq/L Chloride 102 (98-107) mEq/L Carbon Dioxide 31 (21-32) mEq/L Anion Gap 8.4 (5-15) BUN 7 (7-18) mg/dL Creatinine 0.7 (0.7-1.3) mg/dL Est Cr Clr Drug Dosing 127.34 mL/min Estimated GFR (MDRD) > 60 (>60) mL/min BUN/Creatinine Ratio 10.0 L (14-18) Glucose 121 H (74-106) mg/dL Lactic Acid 0.7 (0.4-2.0) mmol/L Calcium 8.1 L (8.5-10.1) mg/dL Troponin I < 0.017 (0.00-0.056) ng/mL C-Reactive Protein 10.2 H* (<1.0) mg/dL Vitamin B12 (193-986) pg/ml Folate (8.6-58.9) ng/mL Urine Color (Yellow) Urine Appearance (Clear) Urine pH (5.0-8.0) Ur Specific Deer (1.005-1.030) Urine Protein (Negative) Urine Glucose (UA) (Negative) Urine Ketones (Negative) Urine Occult Blood (Negative) Urine Nitrite (Negative) Urine Bilirubin (Negative) Urine Urobilinogen (0.2-1.0) Ur Leukocyte Esterase (Negative) Urine RBC (0-5) /hpf Urine WBC (0-5) /hpf Ur Epithelial Cells (0-5) /hpf Urine Bacteria (FEW) /hpf Urine Mucus (FEW) /hpf Urine Opiates Screen (NEGATIVE) Ur Buprenorphine Scrn (NEGATIVE) Ur Oxycodone Screen (NEGATIVE) Urine Methadone Screen (NEGATIVE) Ur Propoxyphene Screen (NEGATIVE) Ur Barbiturates Screen (NEGATIVE) Ur Tricyclics Screen (NEGATIVE) Ur Phencyclidine Scrn (NEGATIVE) Ur Amphetamine Screen (NEGATIVE) U Methamphetamines Scrn (NEGATIVE) U Benzodiazepines Scrn (NEGATIVE) U Cocaine Metab Screen (NEGATIVE) U Marijuana (THC) Screen (NEGATIVE) 04/19/17 Range/Units 05:56 WBC (4.23-9.07) K/mm3 RBC (4.63-6.08) M/mm3 Hgb (13.7-17.5) gm/L Hct (40.1-51.0) % MCV (79.0-92.2) fl MCH (25.7-32.2) pg MCHC (32.2-35.5) g/dl RDW Std Deviation (35.1-43.9) fL Plt Count (163-337) K/mm3 MPV (9.4-12.3) fl Neut % (Auto) (34.0-67.9) % Lymph % (Auto) (21.8-53.1) % Sawyer % (Auto) (5.3-12.2) % Eos % (Auto) (0.8-7.0) Baso % (Auto) (0.1-1.2) % Neut # (Auto) (1.78-5.38) K/mm3 Lymph # (Auto) (1.32-3.57) K/mm3 Sawyer # (Auto) (0.30-0.82) K/mm3 Eos # (Auto) (0.04-0.54) K/mm3 Baso # (Auto) (0.01-0.08) K/mm3 Manual Slide Review D-Dimer, Quantitative (0.19-0.59) mg/L Sodium (136-145) mEq/L Potassium (3.5-5.1) mEq/L Chloride (98-107) mEq/L Carbon Dioxide (21-32) mEq/L Anion Gap (5-15) BUN (7-18) mg/dL Creatinine (0.7-1.3) mg/dL Est Cr Clr Drug Dosing mL/min Estimated GFR (MDRD) (>60) mL/min BUN/Creatinine Ratio (14-18) Glucose (74-106) mg/dL Lactic Acid (0.4-2.0) mmol/L Calcium (8.5-10.1) mg/dL Troponin I (0.00-0.056) ng/mL C-Reactive Protein (<1.0) mg/dL Vitamin B12 442 (193-986) pg/ml Folate 10.0 (8.6-58.9) ng/mL Urine Color (Yellow) Urine Appearance (Clear) Urine pH (5.0-8.0) Ur Specific Deer (1.005-1.030) Urine Protein (Negative) Urine Glucose (UA) (Negative) Urine Ketones (Negative) Urine Occult Blood (Negative) Urine Nitrite (Negative) Urine Bilirubin (Negative) Urine Urobilinogen (0.2-1.0) Ur Leukocyte Esterase (Negative) Urine RBC (0-5) /hpf Urine WBC (0-5) /hpf Ur Epithelial Cells (0-5) /hpf Urine Bacteria (FEW) /hpf Urine Mucus (FEW) /hpf Urine Opiates Screen (NEGATIVE) Ur Buprenorphine Scrn (NEGATIVE) Ur Oxycodone Screen (NEGATIVE) Urine Methadone Screen (NEGATIVE) Ur Propoxyphene Screen (NEGATIVE) Ur Barbiturates Screen (NEGATIVE) Ur Tricyclics Screen (NEGATIVE) Ur Phencyclidine Scrn (NEGATIVE) Ur Amphetamine Screen (NEGATIVE) U Methamphetamines Scrn (NEGATIVE) U Benzodiazepines Scrn (NEGATIVE) U Cocaine Metab Screen (NEGATIVE) U Marijuana (THC) Screen (NEGATIVE) Med Orders - Current: Current Medications Clonidine HCl (Catapres) 0.1 mg PO Q12HR COUNTS INCLUDE 234 BEDS AT THE [facility] Last Admin: 04/19/17 09:48 Dose: 0.1 mg Enoxaparin Sodium (Lovenox) 30 mg SUBCUT DAILY COUNTS INCLUDE 234 BEDS AT THE [facility] Last Admin: 04/19/17 09:51 Dose: 30 mg Folic Acid (Folic Acid) 1 mg PO DAILY COUNTS INCLUDE 234 BEDS AT THE [facility] Last Admin: 04/19/17 09:48 Dose: 1 mg Metoprolol Tartrate (Lopressor) 25 mg PO Q12HR COUNTS INCLUDE 234 BEDS AT THE [facility] Last Admin: 04/19/17 09:48 Dose: 25 mg Metoprolol Tartrate (Lopressor) 5 mg IVPUSH Q6H PRN PRN Reason: HR>120 Miscellaneous Information (Remove Patch) 0 ea TRDERM DAILY COUNTS INCLUDE 234 BEDS AT THE [facility] Last Admin: 04/19/17 09:50 Dose: 1 ea Nicotine (Habitrol) 21 mg TRDERM DAILY COUNTS INCLUDE 234 BEDS AT THE [facility] Last Admin: 04/19/17 09:49 Dose: 21 mg Sodium Chloride (Saline Flush) 10 ml FLUSH ASDIRECTED PRN PRN Reason: Keep Vein Open Last Admin: 04/18/17 11:23 Dose: 10 ml Temazepam (Restoril) 15 mg PO BEDTIME PRN PRN Reason: Insomnia Last Admin: 04/18/17 20:45 Dose: 15 mg Thiamine HCl (Vitamin B-1) 100 mg PO BEDTIME COUNTS INCLUDE 234 BEDS AT THE [facility] Last Admin: 04/18/17 20:20 Dose: 100 mg Vitamin B Complex/Vit C/Folic Acid (Nephrocaps) 1 tab PO DAILY COUNTS INCLUDE 234 BEDS AT THE [facility] Last Admin: 04/19/17 09:51 Dose: 1 tab Discontinued Medications Clonidine HCl (Catapres) 0.1 mg PO Q12HR COUNTS INCLUDE 234 BEDS AT THE [facility] Sodium Chloride (Normal Saline) 100 mls @ 60 mls/hr IV ASDIRECTED COUNTS INCLUDE 234 BEDS AT THE [facility] Last Admin: 04/18/17 11:31 Dose: 60 mls/hr Magnesium Sulfate 2 gm/ Premix 50 mls @ 25 mls/hr IV ONETIME ONE Stop: 04/18/17 15:35 Last Admin: 04/18/17 13:43 Dose: 25 mls/hr Magnesium Sulfate 2 gm/ Premix 50 mls @ 25 mls/hr IV ONETIME ONE Stop: 04/18/17 20:02 Last Admin: 04/18/17 18:20 Dose: 25 mls/hr Iopamidol (Isovue-370 (76%)) 100 ml IVPUSH ONETIME ONE Stop: 04/18/17 11:20 Last Admin: 04/18/17 11:31 Dose: 100 ml Miscellaneous Information (Remove Patch) 1 ea TRDERM DAILY COUNTS INCLUDE 234 BEDS AT THE [facility] Last Admin: 04/18/17 17:30 Dose: Not Given Potassium Chloride (Potassium Chloride) 60 meq PO ONETIME ONE Stop: 04/18/17 18:04 Last Admin: 04/18/17 18:20 Dose: 60 meq Sodium Chloride (Saline Flush) 10 ml FLUSH ONETIME ONE Stop: 04/18/17 11:20 Last Admin: 04/18/17 11:31 Dose: 10 ml - Exam Quality Assessment: Supplemental Oxygen General: Alert, Oriented HEENT: Pupils Equal Lungs: Normal Respiratory Effort, Crackles (Posterior left lower lung ) Cardiovascular: Regular Rate, Regular Rhythm Skin: Warm, Dry, Intact Physical Findings Comments:: He breaths without difficulty on 2 L oxygen by nasal canula. There are crackles in the posterior left lower lung on auscultation. His heart is RRR. Chest X-ray from 04/19/17 shows increased density in the left mid and lower lung and pleural effusions of the right and left lungs. - Problem List Review Problem List Initiated/Reviewed/Updated: Yes - Assessment Assessment:: Assessment: Pleural effusion bilateral Increased density of left mid and lower lung Shortness of breath Plan: Chest CT to assess increased density and pleural effusion Consider placement of chest tube based on CT results If CT is suggestive of pneumonia, initiate antibiotics - Plan Plan:: Impression: Bilateral pleural effusion, suspect exudate likely malignancy >40 pound weight loss documented 06/20-11/19. History of chronic pancreatitis History of fatty liver GERD Plan: IVF Empiric Rx for CAP Pain meds CIWA Daily labs SZ precautions Resume home BP meds Serial CXRs DVT/GI prophylaxis
[2017-04-19] MEDS ORDERED: Potassium Chloride 20 MEQ Tab.ER PO ONE (11:44)
[2017-04-19] MEDS ORDERED: Iopamidol 755 Mg/ML 100 ML Bottle IVPUSH ONE (12:21)
[2017-04-19] MEDS ORDERED: Sodium Chloride 0.9% 10 ML Syringe FLUSH PRN (12:21)
[2017-04-19] MEDS ORDERED: Sodium Chloride 0.9% 100 ML IV SCH (12:30)
[2017-04-19] MEDS: Sodium Chloride 0.9% 10 ML Syringe FLUSH PRN ×2 (12:40→13:49)
[2017-04-19] MEDS ORDERED: Enoxaparin 40 MG/0.4 ML Syringe SUBCUT SCH (13:28)
--- NOTE | 2017-04-19 14:23 | CT ---
CT chest Technique: Multiple axial sections were obtained from above the lung apices inferiorly through the lung bases. Intravenous contrast was utilized. Study has been performed as a pulmonary angiogram protocol. Comparison: Previous pulmonary angiogram study of 04/18/17. Findings: Pulmonary arteries are well-opacified. No filling defects are seen to indicate pulmonary embolism. Moderate to large right-sided pleural effusion is seen which has increased in size from previous exam. Moderate-sized left-sided pleural effusion is seen which has slightly diminished in size from previous exam. Atelectasis on a compressive basis is seen next to the pleural effusions. Patchy areas of increased density are seen within the left upper and more prominently within the left lower which are an interval change raising the possibility of multifocal pneumonia. Hazy ground-glass appearance is noted within the right upper lung which is more prominent which may represent pneumonitis versus areas of atelectasis or even vascular congestion. Mediastinum and hilar regions show no adenopathy or mass. No pericardial thickening is seen. Impression: 1. Increasing pleural effusion on the right side from prior chest CT. Decreased left-sided pleural effusion from prior study. 2. Compressive atelectasis adjacent to the pleural effusions on both sides. 3. Areas of consolidation within the left upper and left lower lung as an interval change from prior exam raising the possibility of multifocal pneumonia. 4. Increasing ground-glass appearance within the right upper lung with differential including pneumonitis, vascular congestion and atelectasis. Diagnostic code #5 Supervisor Anodizing called report to Dr. Nia De Guzman at 1326 on 04/19/17
[2017-04-19] MEDS ORDERED: Levofloxacin/Dextrose 5%-Water 750 MG in Premix Bag 1 BAG IV SCH (14:30)
[2017-04-19] MEDS ORDERED: Ondansetron 4 MG/2 ML SDV IVPUSH PRN (17:56)
[2017-04-19] MEDS: Temazepam 15 MG Cap PO PRN (20:33)
[2017-04-19] MEDS: Thiamine 100 MG Tab PO SCH (20:34)
[2017-04-20] MEDS ORDERED: Levofloxacin/Dextrose 5%-Water 750 MG in Premix Bag 1 BAG IV SCH (06:00)
[2017-04-20] MEDS: Sodium Chloride 0.9% 10 ML Syringe FLUSH PRN (07:35)
[2017-04-20] MEDS: Metoprolol Tartrate 25 MG Tab PO SCH (08:12)
[2017-04-20] MEDS: Folic Acid 1 MG Tab PO SCH (08:12)
[2017-04-20] MEDS: cloNIDine 0.1 MG Tab PO SCH (08:12)
[2017-04-20] MEDS: Biotin/Folic Acid/Vitamin C/Vitamin B Complex Tab PO SCH (08:12)
[2017-04-20 08:14] VITALS: BP 115/89
[2017-04-20] MEDS: Nicotine 21 MG/24 Hr Patch TRDERM SCH (08:14)
--- NOTE | 2017-04-20 09:09 | PCM.DCSUM1 ---
<Vera Carrera - Last Filed: 04/21/17 13:21> Discharge Summary - Hospital Course Free Text/Narrative:: 47 year old male, smoker with alcohol chronic use presented to ED with CP and SOB. He has hx of >15 pound wgt loss over 2-3 weeks; since Jun 2016-November 2016 also reported an additional weight loss of at least 40 pounds. He complained of chest pain with radiation to his shoulder blades. Denied orthopnea/PND, fever, N/V/D. He complained of SOB with exertion. CXR revealed large pleural effusion. He had a thoracentesis done in the ED by Dr. Dietz with at least 2.5 liters of brown, cloudy fluid removed, sent to lab for evaluation. He has a known history of pancreatitis. He will be admitted to the ICU for close monitoring, impending ETOH withdrawal is anticipated. Patient did fairly well during his stay. He did not got through alcohol withdrawl as expected. He maintained oxygenation s/p thoracentesis. Repeat chest xray was with radiology report of returning pleural effusion. Per Dr. Dietz eval of xray he did not feel that return of pleural effusion was significant. He was covered for pneumonia with IV levaquin, discharged on PO levaquin. He had hypokalemia/hypomagnesemia with replacement, he is discharged with PO replacement as well. He has been instructed to stop smoking. It has been discussed with him by at least 2 physicians that based on the color and quantity of his pleural fluid there is high concern for malignancy. It is recommended he see Oncology. He will follow up with Dr. Dietz next week to further address this, CXR prior and with PCP, Dr. Toth next week also. - Discharge Data Discharge Date: 04/20/17 (admit date 04/18/17) Discharge Disposition: Home, Self-Care 01 Condition: Good - Discharge Diagnosis/Problem(s) (1) Pleural effusion SNOMED Code(s): 47140662 ICD Code: J90 - PLEURAL EFFUSION, NOT ELSEWHERE CLASSIFIED Status: Acute Priority: High (2) Hypokalemia SNOMED Code(s): 53089049 ICD Code: E87.6 - HYPOKALEMIA Status: Acute Priority: High (3) Hypomagnesemia SNOMED Code(s): 475835718 ICD Code: E83.42 - HYPOMAGNESEMIA Status: Acute Priority: High (4) Tobacco use disorder SNOMED Code(s): 497105851, 063506408 ICD Code: F17.200 - NICOTINE DEPENDENCE, UNSPECIFIED, UNCOMPLICATED Status : Chronic Priority: High (5) Chronic alcohol use SNOMED Code(s): 564170 ICD Code: Z78.9 - OTHER SPECIFIED HEALTH STATUS Status: Chronic Priority : High - Patient Summary/Data Operative Procedure(s) Performed: ultrasound-guided left thoracentesis--Per Dr. Dietz with 2.5L drained, cloudy brown fluid- cultures negative Complications: None Consults: Consultations 04/18/17 18:04 Consult to Case Management [CONS] Routine 04/18/17 18:05 Consult to Occupational Therapy [OT Evaluation and Treatment] [CONS] Routine Consult to Physical Therapy [PT Evaluation and Treatment] [CONS] Routine Labs Pending at D/C: None Recommended Follow-up Testing/Procedures: Patient DC instructions: Follow up with PCP within 5 days with Chest X-ray to be done at that time Follow up with Dr. Dietz within one week to follow up on thoracentesis Stop smoking Exercise 3 times per week Stop drinking alcohol Planned Operative Procedure(s) after DC: None Hospital Course: As above - Patient Instructions Diet: Heart Healthy Diet, Drink 8-10+ Glasses/Day, No Alcoholic Beverages Activity: As Tolerated Driving: Do Not Drive (today) Showering/Bathing: May Shower Wound/Incision Care: Keep Operative Site/Wound Site Clean and Dry Notify Provider of: Fever, Increased Pain, Drainage, Nausea and/or Vomiting - Discharge Plan Prescriptions/Med Rec: Metoprolol Tartrate [Lopressor] 25 mg PO Q12HR #60 tablet Biotin/FA/Vit C/Vit B Complex [Nephrocaps] 1 tab PO DAILY #30 tablet Folic Acid 1 mg PO DAILY #30 tablet Levofloxacin [Levaquin] 750 mg PO DAILY #10 tablet Magnesium Oxide 400 mg PO BID #30 tablet Nicotine [Habitrol] 21 mg TRDERM DAILY #30 patch Potassium Chloride 20 meq PO DAILY #15 tablet.er Thiamine [Vitamin B-1] 100 mg PO BEDTIME #30 tablet Home Medications: Home Meds Biotin/FA/Vit C/Vit B Complex [Nephrocaps] 1 tab PO DAILY #30 tablet 04/20/17 [ Rx] Folic Acid 1 mg PO DAILY #30 tablet 04/20/17 [Rx] Levofloxacin [Levaquin] 750 mg PO DAILY #10 tablet 04/20/17 [Rx] Magnesium Oxide 400 mg PO BID #30 tablet 04/20/17 [Rx] Metoprolol Tartrate [Lopressor] 25 mg PO Q12HR #60 tablet 04/20/17 [Rx] Nicotine [Habitrol] 21 mg TRDERM DAILY #30 patch 04/20/17 [Rx] Potassium Chloride 20 meq PO DAILY #15 tablet.er 04/20/17 [Rx] Thiamine [Vitamin B-1] 100 mg PO BEDTIME #30 tablet 04/20/17 [Rx] Patient Handouts: Smoking Cessation, Tips for Success, [id number], Chemical Dependency, Heart-Healthy Eating Plan, [id number], Pleural Effusion, Alcohol Withdrawal, [id number] Forms: ED Department Discharge Referrals: Bolivar Toth Jr, MD [Primary Care Provider] - 04/25/17 8:30 am - Discharge Summary/Plan Comment DC Time >30 min.: Yes (40min) - General Info Date of Service: 04/20/17 Admission Dx/Problem (Free Text: Pleural effusion, SOB Doing well, anxious for discharge home today. Functional Status: Reports: Pain Controlled, Tolerating Diet, Ambulating, Urinating. Denies: New Symptoms - Review of Systems General: Reports: No Symptoms HEENT: Reports: No Symptoms Pulmonary: Reports: No Symptoms. Denies: Shortness of Breath, Pleuritic Chest Pain, Cough, Hemoptysis Cardiovascular: Reports: No Symptoms. Denies: Chest Pain, Palpitations, Dyspnea on Exertion Gastrointestinal: Reports: No Symptoms Neurological: Reports: No Symptoms Psychiatric: Reports: No Symptoms - Patient Data Vitals - Most Recent: Last Vital Signs Temp 98 F 04/20/17 07:32 Pulse 85 04/20/17 08:12 Resp 16 04/20/17 07:32 BP 115/89 04/20/17 08:12 Pulse Ox 92 L 04/20/17 07:38 Weight - Most Recent: 70.307 kg I&O - Last 24 hours: Intake & Output 04/19/17 04/20/17 04/20/17 22:59 06:59 14:59 Intake Total 440 150 Output Total 250 Balance 190 150 Lab Results - Last 24 hrs: Laboratory Results - last 24 hr 04/19/17 04/20/17 04/20/17 Range/Units 05:56 05:52 05:52 WBC 10.87 H (4.23-9.07) K/mm3 RBC 4.20 L (4.63-6.08) M/mm3 Hgb 14.9 (13.7-17.5) gm/L Hct 43.3 (40.1-51.0) % MCV 103.1 H (79.0-92.2) fl MCH 35.5 H (25.7-32.2) pg MCHC 34.4 (32.2-35.5) g/dl RDW Std Deviation 54.7 H (35.1-43.9) fL Plt Count 372 H (163-337) K/mm3 MPV 9.6 (9.4-12.3) fl Neut % (Auto) 73.5 H (34.0-67.9) % Lymph % (Auto) 11.4 L (21.8-53.1) % Park % (Auto) 9.7 (5.3-12.2) % Eos % (Auto) 4.6 (0.8-7.0) Baso % (Auto) 0.6 (0.1-1.2) % Neut # (Auto) 8.00 H (1.78-5.38) K/mm3 Lymph # (Auto) 1.24 L (1.32-3.57) K/mm3 Park # (Auto) 1.05 H (0.30-0.82) K/mm3 Eos # (Auto) 0.50 (0.04-0.54) K/mm3 Baso # (Auto) 0.06 (0.01-0.08) K/mm3 Sodium 140 (136-145) mEq/L Potassium 3.3 L (3.5-5.1) mEq/L Chloride 104 (98-107) mEq/L Carbon Dioxide 28 (21-32) mEq/L Anion Gap 11.3 (5-15) BUN 10 (7-18) mg/dL Creatinine 0.7 (0.7-1.3) mg/dL Est Cr Clr Drug Dosing 128.34 mL/min Estimated GFR (MDRD) > 60 (>60) mL/min BUN/Creatinine Ratio 14.3 (14-18) Glucose 149 H (74-106) mg/dL Lactic Acid (0.4-2.0) mmol/L Calcium 8.4 L (8.5-10.1) mg/dL Magnesium 1.7 L (1.8-2.4) mg/dl C-Reactive Protein 6.4 H* (<1.0) mg/dL 04/20/17 04/20/17 Range/Units 05:52 05:52 WBC (4.23-9.07) K/mm3 RBC (4.63-6.08) M/mm3 Hgb (13.7-17.5) gm/L Hct (40.1-51.0) % MCV (79.0-92.2) fl MCH (25.7-32.2) pg MCHC (32.2-35.5) g/dl RDW Std Deviation (35.1-43.9) fL Plt Count (163-337) K/mm3 MPV (9.4-12.3) fl Neut % (Auto) (34.0-67.9) % Lymph % (Auto) (21.8-53.1) % Park % (Auto) (5.3-12.2) % Eos % (Auto) (0.8-7.0) Baso % (Auto) (0.1-1.2) % Neut # (Auto) (1.78-5.38) K/mm3 Lymph # (Auto) (1.32-3.57) K/mm3 Park # (Auto) (0.30-0.82) K/mm3 Eos # (Auto) (0.04-0.54) K/mm3 Baso # (Auto) (0.01-0.08) K/mm3 Sodium (136-145) mEq/L Potassium (3.5-5.1) mEq/L Chloride (98-107) mEq/L Carbon Dioxide (21-32) mEq/L Anion Gap (5-15) BUN (7-18) mg/dL Creatinine (0.7-1.3) mg/dL Est Cr Clr Drug Dosing mL/min Estimated GFR (MDRD) (>60) mL/min BUN/Creatinine Ratio (14-18) Glucose (74-106) mg/dL Lactic Acid 1.0 (0.4-2.0) mmol/L Calcium (8.5-10.1) mg/dL Magnesium 1.5 L (1.8-2.4) mg/dl C-Reactive Protein (<1.0) mg/dL Med Orders - Current: Current Medications Clonidine HCl (Catapres) 0.1 mg PO Q12HR [facility] Last Admin: 04/20/17 08:12 Dose: 0.1 mg Enoxaparin Sodium (Lovenox) 40 mg SUBCUT DAILY [facility] Last Admin: 04/20/17 08:16 Dose: 40 mg Folic Acid (Folic Acid) 1 mg PO DAILY [facility] Last Admin: 04/20/17 08:12 Dose: 1 mg Levofloxacin/Dextrose 750 mg/ (Premix) 150 mls @ 100 mls/hr IV Q24H [facility] Last Admin: 04/20/17 06:01 Dose: 100 mls/hr Metoprolol Tartrate (Lopressor) 25 mg PO Q12HR [facility] Last Admin: 04/20/17 08:12 Dose: 25 mg Metoprolol Tartrate (Lopressor) 5 mg IVPUSH Q6H PRN PRN Reason: HR>120 Miscellaneous Information (Remove Patch) 0 ea TRDERM DAILY [facility] Last Admin: 04/20/17 08:19 Dose: 1 ea Nicotine (Habitrol) 21 mg TRDERM DAILY [facility] Last Admin: 04/20/17 08:14 Dose: 21 mg Ondansetron HCl (Zofran) 4 mg IVPUSH Q6H PRN PRN Reason: Nausea Last Admin: 04/19/17 18:29 Dose: 4 mg Sodium Chloride (Saline Flush) 10 ml FLUSH ASDIRECTED PRN PRN Reason: Keep Vein Open Last Admin: 04/20/17 07:35 Dose: 10 ml Temazepam (Restoril) 15 mg PO BEDTIME PRN PRN Reason: Insomnia Last Admin: 04/19/17 20:33 Dose: 15 mg Thiamine HCl (Vitamin B-1) 100 mg PO BEDTIME [facility] Last Admin: 04/19/17 20:34 Dose: 100 mg Vitamin B Complex/Vit C/Folic Acid (Nephrocaps) 1 tab PO DAILY [facility] Last Admin: 04/20/17 08:12 Dose: 1 tab Discontinued Medications Clonidine HCl (Catapres) 0.1 mg PO Q12HR [facility] Enoxaparin Sodium (Lovenox) 30 mg SUBCUT DAILY [facility] Last Admin: 04/19/17 09:51 Dose: 30 mg Sodium Chloride (Normal Saline) 100 mls @ 60 mls/hr IV ASDIRECTED [facility] Last Admin: 04/18/17 11:31 Dose: 60 mls/hr Magnesium Sulfate 2 gm/ Premix 50 mls @ 25 mls/hr IV ONETIME ONE Stop: 04/18/17 15:35 Last Admin: 04/18/17 13:43 Dose: 25 mls/hr Magnesium Sulfate 2 gm/ Premix 50 mls @ 25 mls/hr IV ONETIME ONE Stop: 04/18/17 20:02 Last Admin: 04/18/17 18:20 Dose: 25 mls/hr Sodium Chloride (Normal Saline) 100 mls @ 65 mls/hr IV ASDIRECTED [facility] Stop: 04/19/17 16:00 Last Admin: 04/19/17 12:40 Dose: 65 mls/hr Levofloxacin/Dextrose 750 mg/ (Premix) 150 mls @ 100 mls/hr IV Q24H [facility] Last Admin: 04/19/17 15:18 Dose: 100 mls/hr Iopamidol (Isovue-370 (76%)) 100 ml IVPUSH ONETIME ONE Stop: 04/18/17 11:20 Last Admin: 04/18/17 11:31 Dose: 100 ml Iopamidol (Isovue-370 (76%)) 100 ml IVPUSH ONETIME ONE Stop: 04/19/17 12:22 Last Admin: 04/19/17 12:39 Dose: 100 ml Miscellaneous Information (Remove Patch) 1 ea TRDERM DAILY [facility] Last Admin: 04/18/17 17:30 Dose: Not Given Potassium Chloride (Potassium Chloride) 60 meq PO ONETIME ONE Stop: 04/18/17 18:04 Last Admin: 04/18/17 18:20 Dose: 60 meq Potassium Chloride (Klor-Con M20) 40 meq PO ONETIME ONE Stop: 04/19/17 11:45 Last Admin: 04/19/17 13:48 Dose: 40 meq Sodium Chloride (Saline Flush) 10 ml FLUSH ONETIME ONE Stop: 04/18/17 11:20 Last Admin: 04/18/17 11:31 Dose: 10 ml Sodium Chloride (Saline Flush) 10 ml FLUSH ONETIME PRN PRN Reason: IV FLUSH Stop: 04/19/17 16:00 - Exam Quality Assessment: Reports: DVT Prophylaxis General: Reports: Alert, Oriented, No Acute Distress HEENT: Reports: Pupils Equal, EOMI, Mucous Membr. Moist/[place] Neck: Reports: Supple Lungs: Reports: Clear to Auscultation, Normal Respiratory Effort, Decreased Breath Sounds (bases) Cardiovascular: Reports: Regular Rate, Regular Rhythm GI/Abdominal Exam: Normal Bowel Sounds, Soft (Male) Exam: Deferred Rectal (Males) Exam: Deferred Extremities: No Pedal Edema Neurological: Reports: No New Focal Deficit Psy/Mental Status: Reports: Alert, Normal Affect, Normal Mood *Q Meaningful Use (DIS) - VTE *Q VTE Criteria *Q: - Stroke *Q Stroke Criteria *Q: - AMI *Q AMI Criteria *Q: <Nia De Guzman - Last Filed: 04/21/17 14:20> Discharge Summary - Hospital Course Free Text/Narrative:: Given risk factors, and gross appearance, the effusion is strongly suggestive of malignancy. This has been explained to the patient. The initial follow up post DC is to review the results, and document the recurrence if any of the pleural effusion. He will need an staff toxicologist and/or oncologist - Discharge Diagnosis/Problem(s) (1) Pleural effusion SNOMED Code(s): 09697336 ICD Code: J90 - PLEURAL EFFUSION, NOT ELSEWHERE CLASSIFIED Status: Acute Priority: High (2) Chronic pancreatitis due to acute alcohol intoxication SNOMED Code(s): 380617322, 042288793 ICD Code: K86.0 - ALCOHOL-INDUCED CHRONIC PANCREATITIS Status: Acute (3) Fatty liver, alcoholic SNOMED Code(s): 74594118 ICD Code: K70.0 - ALCOHOLIC FATTY LIVER Status: Acute (4) Hypokalemia SNOMED Code(s): 36608542 ICD Code: E87.6 - HYPOKALEMIA Status: Acute (5) Hypomagnesemia SNOMED Code(s): 080318634 ICD Code: E83.42 - HYPOMAGNESEMIA Status: Acute Priority: High (6) Hypertension SNOMED Code(s): 06459167 ICD Code: I10 - ESSENTIAL (PRIMARY) HYPERTENSION Status: Chronic Qualifiers: Hypertension type: essential hypertension Qualified Code(s): I10 - Essential (primary) hypertension - Patient Summary/Data Consults: Consultations 04/18/17 18:04 Consult to Case Management [CONS] Routine 04/18/17 18:05 Consult to Occupational Therapy [OT Evaluation and Treatment] [CONS] Routine Consult to Physical Therapy [PT Evaluation and Treatment] [CONS] Routine - Patient Data Vitals - Most Recent: Last Vital Signs Temp 36.6 C 04/20/17 07:32 Pulse 85 04/20/17 08:12 Resp 16 04/20/17 07:32 BP 115/89 04/20/17 08:12 Pulse Ox 93 L 04/20/17 10:00 Med Orders - Current: Current Medications Discontinued Medications Clonidine HCl (Catapres) 0.1 mg PO Q12HR [facility] Clonidine HCl (Catapres) 0.1 mg PO Q12HR [facility] Last Admin: 04/20/17 08:12 Dose: 0.1 mg Enoxaparin Sodium (Lovenox) 30 mg SUBCUT DAILY [facility] Last Admin: 04/19/17 09:51 Dose: 30 mg Enoxaparin Sodium (Lovenox) 40 mg SUBCUT DAILY [facility] Last Admin: 04/20/17 08:16 Dose: 40 mg Folic Acid (Folic Acid) 1 mg PO DAILY [facility] Last Admin: 04/20/17 08:12 Dose: 1 mg Sodium Chloride (Normal Saline) 100 mls @ 60 mls/hr IV ASDIRECTED [facility] Last Admin: 04/18/17 11:31 Dose: 60 mls/hr Magnesium Sulfate 2 gm/ Premix 50 mls @ 25 mls/hr IV ONETIME ONE Stop: 04/18/17 15:35 Last Admin: 04/18/17 13:43 Dose: 25 mls/hr Magnesium Sulfate 2 gm/ Premix 50 mls @ 25 mls/hr IV ONETIME ONE Stop: 04/18/17 20:02 Last Admin: 04/18/17 18:20 Dose: 25 mls/hr Sodium Chloride (Normal Saline) 100 mls @ 65 mls/hr IV ASDIRECTED [facility] Stop: 04/19/17 16:00 Last Admin: 04/19/17 12:40 Dose: 65 mls/hr Levofloxacin/Dextrose 750 mg/ (Premix) 150 mls @ 100 mls/hr IV Q24H [facility] Last Admin: 04/19/17 15:18 Dose: 100 mls/hr Levofloxacin/Dextrose 750 mg/ (Premix) 150 mls @ 100 mls/hr IV Q24H [facility] Last Admin: 04/20/17 06:01 Dose: 100 mls/hr Iopamidol (Isovue-370 (76%)) 100 ml IVPUSH ONETIME ONE Stop: 04/18/17 11:20 Last Admin: 04/18/17 11:31 Dose: 100 ml Iopamidol (Isovue-370 (76%)) 100 ml IVPUSH ONETIME ONE Stop: 04/19/17 12:22 Last Admin: 04/19/17 12:39 Dose: 100 ml Magnesium Oxide (Magnesium Oxide) 800 mg PO ONETIME ONE Stop: 04/20/17 09:12 Last Admin: 04/20/17 09:26 Dose: 800 mg Metoprolol Tartrate (Lopressor) 25 mg PO Q12HR [facility] Last Admin: 04/20/17 08:12 Dose: 25 mg Metoprolol Tartrate (Lopressor) 5 mg IVPUSH Q6H PRN PRN Reason: HR>120 Miscellaneous Information (Remove Patch) 1 ea TRDERM DAILY [facility] Last Admin: 04/18/17 17:30 Dose: Not Given Miscellaneous Information (Remove Patch) 0 ea TRDERM DAILY [facility] Last Admin: 04/20/17 08:19 Dose: 1 ea Nicotine (Habitrol) 21 mg TRDERM DAILY [facility] Last Admin: 04/20/17 08:14 Dose: 21 mg Ondansetron HCl (Zofran) 4 mg IVPUSH Q6H PRN PRN Reason: Nausea Last Admin: 04/19/17 18:29 Dose: 4 mg Potassium Chloride (Potassium Chloride) 60 meq PO ONETIME ONE Stop: 04/18/17 18:04 Last Admin: 04/18/17 18:20 Dose: 60 meq Potassium Chloride (Klor-Con M20) 40 meq PO ONETIME ONE Stop: 04/19/17 11:45 Last Admin: 04/19/17 13:48 Dose: 40 meq Potassium Chloride (Klor-Con M20) 40 meq PO ONETIME ONE Stop: 04/20/17 09:11 Last Admin: 04/20/17 09:26 Dose: 40 meq Sodium Chloride (Saline Flush) 10 ml FLUSH ASDIRECTED PRN PRN Reason: Keep Vein Open Last Admin: 04/20/17 07:35 Dose: 10 ml Sodium Chloride (Saline Flush) 10 ml FLUSH ONETIME ONE Stop: 04/18/17 11:20 Last Admin: 04/18/17 11:31 Dose: 10 ml Sodium Chloride (Saline Flush) 10 ml FLUSH ONETIME PRN PRN Reason: IV FLUSH Stop: 04/19/17 16:00 Temazepam (Restoril) 15 mg PO BEDTIME PRN PRN Reason: Insomnia Last Admin: 04/19/17 20:33 Dose: 15 mg Thiamine HCl (Vitamin B-1) 100 mg PO BEDTIME [facility] Last Admin: 04/19/17 20:34 Dose: 100 mg Vitamin B Complex/Vit C/Folic Acid (Nephrocaps) 1 tab PO DAILY [facility] Last Admin: 04/20/17 08:12 Dose: 1 tab *Q Meaningful Use (DIS) - VTE *Q VTE Criteria *Q: - Stroke *Q Stroke Criteria *Q: - AMI *Q AMI Criteria *Q:
[2017-04-20] MEDS ORDERED: Potassium Chloride 20 MEQ Tab.ER PO ONE (09:10)
[2017-04-20] MEDS ORDERED: Magnesium Oxide 400 MG Tab PO ONE (09:11)
--- NOTE | 2017-04-20 09:51 | CR ---
Chest: Two views of the chest were obtained. Comparison: Previous chest CT of 04/19/17 and chest x-ray of 04/19/17. Improved density within the left chest. Current findings appear to have mostly the appearance of atelectasis within the left mid lung. Decreased left-sided pleural effusion is seen from prior exam. Right-sided pleural effusion appears stable. Heart size and mediastinum are normal. Bony structures are grossly intact. Impression: 1. Minimal left-sided pleural effusion decreased in amount from previous exam. 2. Stable right sided pleural effusion. 3. Improved density within the left mid chest from prior study now having the appearance of thick atelectasis. Diagnostic code #3
== END 2017-04-20 10:15 | disposition home or self-care (01) | DRG 187 ==
LOC: JD.ED 10:52 → JD.ICU 15:10
PROVIDERS: ADMIT Internal Medicine Cardiovascular Disease; ATTEND Internal Medicine Cardiovascular Disease
PROC: 0W9B3ZX Drainage of Left Pleural Cavity, Percutaneous Approach, Diagnostic (ICD-10-PCS; principal; 2017-04-18)
DX: J90 Pleural effusion, not elsewhere classified (principal); K86.1 Other chronic pancreatitis; E87.6 Hypokalemia; E83.42 Hypomagnesemia; K21.9 Gastro-esophageal reflux disease without esophagitis; R63.4 Abnormal weight loss; R06.02 Shortness of breath; F17.200 Nicotine dependence, unspecified, uncomplicated; F10.10 Alcohol abuse, uncomplicated
CPT/HCPCS: 32555; 36415; 71010; 71010-26; 71020; 71020-26; 71275; 71275-26; 76942; 80048; 80053; 80306; 81001; 82150; 82553; 82607; 82746; 82945; 83605; 83615; 83690; 83735; 83880; 83986; 84157; 84311; 84478; 84484; 85025; 85379; 85610; 85730; 86140; 87015; 87040; 87070; 87102; 87116; 87205; 87206; 89050; 93005; 96365; 96366; 97162-GP; 97165-GO; 99284; 99285-25; A9270-GY; C1729; G0480; J1650; J1956; J2405; J3475; J7030; J7050; Q9967

== ENCOUNTER 2017-07-02 10:14 | Emergency (ER) | payer BC, OTHER ==
[2017-07-02 10:32] VITALS: BP 119/83
[2017-07-02] MEDS ORDERED: Ondansetron 4 MG/2 ML SDV IVPUSH ONE ×2 (11:16→16:03)
[2017-07-02] MEDS ORDERED: Sodium Chloride 0.9% 10 ML Syringe FLUSH PRN (11:16)
[2017-07-02] MEDS ORDERED: Sodium Chloride 0.9% 1,000 ML IV ONE ×2 (11:16→11:17)
[2017-07-02] MEDS ORDERED: HYDROmorphone 0.5 MG/0.5 ML Syringe IVPUSH ONE ×2 (11:17→16:03)
--- NOTE | 2017-07-02 12:08 | EDM.PDOC ---
ED HPI GENERAL MEDICAL PROBLEM - General Chief Complaint: Abdominal Pain Stated Complaint: ABDOMINAL PAIN/NAUSEA Time Seen by Provider: 07/02/17 11:05 Source of Information: Reports: Patient History Limitations: Reports: No Limitations - History of Present Illness INITIAL COMMENTS - FREE TEXT/NARRATIVE: Patient is a 47-year-old male presents ED complaining of nausea/vomiting, and generalized abdominal pain. Patient has a history of abdominal surgery approximately one month ago to which they removed his spleen and also majority of his pancreas. 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 This was caused by chronic alcohol use in excess. Patient states since his surgery he's been doing okay progressing slowly. Up until 3 days ago developed nausea/vomiting and worsening abdominal pain. States he has not been able to keep any liquids or foods down. Appetite is poor. Feels dehydrated. Abdominal discomfort has progressively gotten worse. States last bout of vomiting was bilious. Denies any fever/chills , dysuria, dizziness, chest pain, shows breath, or any additional complaints. 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 Musculoskeletal History: Reports: Gout Other Musculoskeletal History: patient states "episode of gout many years ago" Psychiatric History: Reports: Addiction Other Psychiatric History: alcohol abuse - Infectious Disease History Infectious Disease History: Reports: Chicken Pox - Past Surgical History Respiratory Surgical History: Reports: Thoracentesis GI Surgical History: Reports: Hernia, Inguinal Musculoskeletal Surgical History: Reports: None Social & Family History - Family History Family Medical History: Noncontributory HEENT: Reports: Glaucoma Cardiac: Reports: [place], [place], Pacemaker, Other (See Below) Other Cardiac Family History: stroke GI: Reports: Pancreatitis Other GI Family History: daughter had pancreas removed Endocrine/Metabolic: Reports: Diabetes, type II Other Endocrine/Metabolic Family History: diet controlled - Tobacco Use Smoking Status *Q: Current Every Day Smoker Years of Tobacco use: 10 Packs/Tins Daily: 0.5 Used Tobacco, but Quit: No Month Tobacco Last Used: current Second Hand Smoke Exposure: No - Caffeine Use Caffeine Use: Reports: Coffee, Soda - Alcohol Use Days Per Week of Alcohol Use: 7 Number of Drinks Per Day: 6 Total Drinks Per Week: 42 - Recreational Drug Use Recreational Drug Use: No - Living Situation & Occupation Occupation: Employed ED ROS GENERAL - Review of Systems Review Of Systems: ROS reveals no pertinent complaints other than HPI. ED EXAM, GI/ABD - Physical Exam Exam: See Below Exam Limited By: No Limitations General Appearance: Alert, WD/WN, No Apparent Distress, Cachetic Ears: Hearing Grossly Normal Nose: Normal Inspection Throat/Mouth: Normal Voice, No Airway Compromise, Other (Oral mucosa is dry) Neck: Normal Inspection, Supple Respiratory/Chest: No Respiratory Distress, Lungs Clear, Normal Breath Sounds, No Accessory Muscle Use, Chest Non-Tender Cardiovascular: Normal Peripheral Pulses, Regular Rate, Rhythm GI/Abdominal Exam: Normal Bowel Sounds, Soft, No Organomegaly, No Distention, No Mass, Tender (Generalized), Other (Large surgical incision from the belly button caudal, well-healed, no concerning findings.) Back Exam: Normal Inspection Extremities: Normal Inspection, Non-Tender, No Pedal Edema, Normal Capillary Refill Neurological: Alert, Oriented, CN II-XII Intact, Normal Cognition, No Motor/ Sensory Deficits Psychiatric: Normal Affect, Normal Mood Skin Exam: Warm, Dry, Intact, Normal Color Course - Vital Signs Last Recorded V/S: Last Vital Signs Temp 96.8 F 07/02/17 10:28 Pulse 108 H 07/02/17 10:28 Resp BP 119/83 07/02/17 10:28 Pulse Ox 97 07/02/17 10:28 - Orders/Labs/Meds Orders: Active Orders 24 hr Category Date Time Status Peripheral IV Care [RC] . DIRECTED Care 07/02/17 11:16 Active Abdomen Pelvis wo Cont [CT] Stat Exams 07/02/17 11:16 Taken NG [Nasogastric Orogastric Tube Insertion] [OM.PC] Oth 07/02/17 14:01 Ordered Routine Peripheral IV Insertion Adult [OM.PC] Stat Oth 07/02/17 11:16 Ordered Labs: Laboratory Tests 07/02/17 07/02/17 07/02/17 Range/Units 10:55 10:55 10:55 WBC 13.32 H (4.23-9.07) K/mm3 RBC 4.60 L (4.63-6.08) M/mm3 Hgb 14.3 (13.7-17.5) gm/L Hct 43.1 (40.1-51.0) % MCV 93.7 H (79.0-92.2) fl MCH 31.1 (25.7-32.2) pg MCHC 33.2 (32.2-35.5) g/dl RDW Std Deviation 54.7 H (35.1-43.9) fL Plt Count 914 H* (163-337) K/mm3 MPV 9.0 L (9.4-12.3) fl Neut % (Auto) 80.1 H (34.0-67.9) % Lymph % (Auto) 8.9 L (21.8-53.1) % Boyle % (Auto) 9.8 (5.3-12.2) % Eos % (Auto) 0.8 (0.8-7.0) Baso % (Auto) 0.2 (0.1-1.2) % Neut # (Auto) 10.67 H (1.78-5.38) K/mm3 Lymph # (Auto) 1.19 L (1.32-3.57) K/mm3 Boyle # (Auto) 1.31 H (0.30-0.82) K/mm3 Eos # (Auto) 0.10 (0.04-0.54) K/mm3 Baso # (Auto) 0.03 (0.01-0.08) K/mm3 Manual Slide Review Abnormal smear PT 10.3 (8.0-13.0) SECONDS INR 0.95 Sodium 136 (136-145) mEq/L Potassium 3.7 (3.5-5.1) mEq/L Chloride 87 L (98-107) mEq/L Carbon Dioxide 38 H (21-32) mEq/L Anion Gap 14.7 (5-15) BUN 32 H (7-18) mg/dL Creatinine 1.8 H (0.7-1.3) mg/dL Est Cr Clr Drug Dosing 43.47 mL/min Estimated GFR (MDRD) 40 (>60) mL/min BUN/Creatinine Ratio 17.8 (14-18) Glucose 158 H (74-106) mg/dL Calcium 10.3 H (8.5-10.1) mg/dL Total Bilirubin 0.4 (0.2-1.0) mg/dL AST 15 (15-37) U/L ALT 11 L (16-63) U/L Alkaline Phosphatase 135 H (46-116) U/L C-Reactive Protein 3.1 H* (<1.0) mg/dL Total Protein 8.6 H (6.4-8.2) g/dl Albumin 3.5 (3.4-5.0) g/dl Globulin 5.1 gm/dL Albumin/Globulin Ratio 0.7 L (1-2) Lipase 144 (73-393) U/L Urine Color (Yellow) Urine Appearance (Clear) Urine pH (5.0-8.0) Ur Specific [place] (1.005-1.030) Urine Protein (Negative) Urine Glucose (UA) (Negative) Urine Ketones (Negative) Urine Occult Blood (Negative) Urine Nitrite (Negative) Urine Bilirubin (Negative) Urine Urobilinogen (0.2-1.0) Ur Leukocyte Esterase (Negative) Urine RBC (0-5) /hpf Urine WBC (0-5) /hpf Ur Epithelial Cells (0-5) /hpf Urine Bacteria (FEW) /hpf Hyaline Casts (0-5) /lpf Urine Mucus (FEW) /hpf Ethyl Alcohol 0.00 (0.00) gm% 07/02/17 Range/Units 16:15 WBC (4.23-9.07) K/mm3 RBC (4.63-6.08) M/mm3 Hgb (13.7-17.5) gm/L Hct (40.1-51.0) % MCV (79.0-92.2) fl MCH (25.7-32.2) pg MCHC (32.2-35.5) g/dl RDW Std Deviation (35.1-43.9) fL Plt Count (163-337) K/mm3 MPV (9.4-12.3) fl Neut % (Auto) (34.0-67.9) % Lymph % (Auto) (21.8-53.1) % Boyle % (Auto) (5.3-12.2) % Eos % (Auto) (0.8-7.0) Baso % (Auto) (0.1-1.2) % Neut # (Auto) (1.78-5.38) K/mm3 Lymph # (Auto) (1.32-3.57) K/mm3 Boyle # (Auto) (0.30-0.82) K/mm3 Eos # (Auto) (0.04-0.54) K/mm3 Baso # (Auto) (0.01-0.08) K/mm3 Manual Slide Review PT (8.0-13.0) SECONDS INR Sodium (136-145) mEq/L Potassium (3.5-5.1) mEq/L Chloride (98-107) mEq/L Carbon Dioxide (21-32) mEq/L Anion Gap (5-15) BUN (7-18) mg/dL Creatinine (0.7-1.3) mg/dL Est Cr Clr Drug Dosing mL/min Estimated GFR (MDRD) (>60) mL/min BUN/Creatinine Ratio (14-18) Glucose (74-106) mg/dL Calcium (8.5-10.1) mg/dL Total Bilirubin (0.2-1.0) mg/dL AST (15-37) U/L ALT (16-63) U/L Alkaline Phosphatase (46-116) U/L C-Reactive Protein (<1.0) mg/dL Total Protein (6.4-8.2) g/dl Albumin (3.4-5.0) g/dl Globulin gm/dL Albumin/Globulin Ratio (1-2) Lipase (73-393) U/L Urine Color Dark yellow (Yellow) Urine Appearance Slt cloudy H (Clear) Urine pH 5.5 (5.0-8.0) Ur Specific [place] > or = 1.030 (1.005-1.030) Urine Protein 2+ H (Negative) Urine Glucose (UA) Negative (Negative) Urine Ketones 1+ H (Negative) Urine Occult Blood Negative (Negative) Urine Nitrite Negative (Negative) Urine Bilirubin 3+ H (Negative) Urine Urobilinogen 0.2 (0.2-1.0) Ur Leukocyte Esterase Trace H (Negative) Urine RBC 0-5 (0-5) /hpf Urine WBC 10-20 H (0-5) /hpf Ur Epithelial Cells 0-5 (0-5) /hpf Urine Bacteria Moderate H (FEW) /hpf Hyaline Casts 20-30 H (0-5) /lpf Urine Mucus Moderate H (FEW) /hpf Ethyl Alcohol (0.00) gm% Meds: Medications Discontinued Medications Generic Name Dose Route Start Last Admin Trade Name Freq PRN Reason Stop Dose Admin Diatrizoate Meglum/Diatrizoate Sod 90 ml 07/02/17 12:45 07/02/17 13:12 Gastrografin 37% PO 07/02/17 12:46 90 ml ONETIME ONE Administration Hydromorphone HCl 0.5 mg 07/02/17 11:17 07/02/17 11:25 Dilaudid IVPUSH 07/02/17 11:18 0.5 mg ONETIME ONE Administration Hydromorphone HCl 0.5 mg 07/02/17 16:03 07/02/17 16:07 Dilaudid IVPUSH 07/02/17 16:04 0.5 mg ONETIME ONE Administration Sodium Chloride 1,000 mls @ 999 mls/hr 07/02/17 11:16 07/02/17 11:24 Normal Saline IV 07/02/17 12:16 999 mls/hr ONETIME ONE Administration Sodium Chloride 1,000 mls @ 999 mls/hr 07/02/17 11:17 07/02/17 12:32 Normal Saline IV 07/02/17 12:17 999 mls/hr ONETIME ONE Administration Sodium Chloride 1,000 mls @ 150 mls/hr 07/02/17 15:30 07/02/17 15:31 Normal Saline IV 150 mls/hr ASDIRECTED ÁNGELA Administration Iopamidol 100 ml 07/02/17 12:45 Isovue-300 (61%) IVPUSH 07/02/17 12:46 ONETIME ONE Ondansetron HCl 4 mg 07/02/17 11:16 07/02/17 11:24 Zofran IVPUSH 07/02/17 11:17 4 mg ONETIME ONE Administration Ondansetron HCl 4 mg 07/02/17 16:03 07/02/17 16:10 Zofran IVPUSH 07/02/17 16:04 4 mg ONETIME ONE Administration Sodium Chloride 10 ml 07/02/17 11:16 07/02/17 11:25 Saline Flush FLUSH 10 ml ASDIRECTED PRN Administration Keep Vein Open Sodium Chloride 10 ml 07/02/17 12:45 Saline Flush FLUSH 07/02/17 12:46 ONETIME ONE - Re-Assessments/Exams Free Text/Narrative Re-Assessment/Exam: IV established with normal saline. For pain Dilaudid 0.5 mg IVP and 4 mg IVP for nausea. Initial labs and studies include CBC, chem 14, CRP, lipase, UA, and we'll go ahead with the CT the abdomen and pelvis with oral and IV contrast. Attempting to obtain medical records from [facility]. Labs reviewed: White blood cell count 13.32, hemoglobin 14.3, platelet count 914 , neutrophil percentage is 80.1, neutrophil number is a 10.67, sodium 136, potassium 3.7, chloride 30, AG 14.7, BUN 32, creatinine 1.8, glucose 28, alk phosphatase 135, CRP 3.1, calcium 10.3, glucose 158, lipase 144, serum EtOH 0.00. CT will be conducted with by mouth contrast only. 1343 [facility] called patient has either a small bowel obstruction or volvulus. CT abdomen and pelvis impression: multiple loops of dilated small bowel with air -fluid levels. Transition point in the left abdomen. Small bowel caliber decreases from 3.3 cm a 6 mm. Findings consistent for small bowel obstruction. The coronal images suggest a small bowel volvulus. Mild right pleural effusion. The body of tailbone pain to his upper lid demonstrated. There is doing dictation of the pancreatic duct to 9 mm. There is increased soft tissue density and inflammatory changes around the body and tail of pancreas. Differential includes pancreatitis and pancreatic mass. Recommend further evaluation with IV contrast clinically indicated. [address] Thomas bow maker production General Surgeon he will see the patient. No antibiotics will be started yet. 07/02/17 15:36 Dr. Thomas has made arrangements for patient to be a direct admit to [facility]. Dr. Frank Mccullough is the accepting provider. Patient will be transported via POV with NG in place. Once IVF have been completed will discharge with instructions as documented. 10/28/17 16:03 Patient complaining of more pain and nausea. Ordered Zofran 4 mg IVP and also Dilaudid 0.5 mg. Departure - Departure Time of Disposition: 16:20 Disposition: DC/Tfer to Acute Hospital 02 Condition: Good Clinical Impression: Small bowel obstruction due to adhesions, Volvulus of small intestine Nausea & vomiting Qualifiers: Vomiting type: bilious vomiting Qualified Code(s): R11.14 - Bilious vomiting Abdominal pain Qualifiers: Abdominal location: upper abdomen, unspecified Qualified Code(s): R10.10 - Upper abdominal pain, unspecified - Discharge Information Instructions: Nausea and Vomiting, Adult, [id number], Small Bowel Obstruction Referrals: Pepe Sweeney MD [Primary Care Provider] - Forms: ED Department Discharge Additional Instructions: Please go through the [facility] to be a direct admit to Dr. Frank Mccullough. Nothing to eat during transport. No driving since receiving a sedative medication while in the ED. Do not pull the NG tube out. - My Orders Last 24 Hours: My Active Orders 07/02/17 11:16 Peripheral IV Care [RC] . DIRECTED Abdomen Pelvis wo Cont [CT] Stat Peripheral IV Insertion Adult [OM.PC] Stat 07/02/17 14:01 NG [Nasogastric Orogastric Tube Insertion] [OM.PC] Routine - Assessment/Plan Last 24 Hours: My Active Orders 07/02/17 11:16 Peripheral IV Care [RC] . DIRECTED Abdomen Pelvis wo Cont [CT] Stat Peripheral IV Insertion Adult [OM.PC] Stat 07/02/17 14:01 NG [Nasogastric Orogastric Tube Insertion] [OM.PC] Routine
[2017-07-02] MEDS ORDERED: Iopamidol 612 MG/ML 100 ML Bottle IVPUSH ONE (12:45)
[2017-07-02] MEDS ORDERED: Sodium Chloride 0.9% 10 ML Syringe FLUSH ONE (12:45)
[2017-07-02] MEDS ORDERED: Diatrizoate Meglumine/Diatrizoate Sodium 37% 120 ML Bottle PO ONE (12:45)
[2017-07-02] MEDS ORDERED: Sodium Chloride 0.9% 1,000 ML IV SCH (15:30)
--- NOTE | 2017-07-03 09:55 | CT ---
CT abdomen and pelvis Technique: Multiple axial sections were obtained from above the dome of the diaphragm inferiorly through the pubic symphysis. Intravenous contrast was not utilized. Oral contrast has been given. Comparison: Prior CT abdomen and pelvis exam of 05/04/16 is available. Findings: Small right sided pleural effusion is seen. Mild parenchymal density noted within the right lower lung. Left lung base is clear. Liver shows no focal parenchymal abnormality. Normal-appearing spleen is not seen. Multiple surgical clips are seen within the left upper abdomen. Body and tail of the pancreas are poorly demonstrated with cystic change possibly representing dilated pancreatic duct within the body of the pancreas. Fullness identified within the right adrenal gland which is stable from prior CT study. Fold is also identified within the left adrenal gland believed to be stable from prior CT exam. Small nonobstructing calculi are seen within both kidneys. No hydronephrosis is seen. Aorta shows no aneurysmal dilatation with atherosclerotic change. Multiple dilated loops of small bowel are seen. Findings may relate to an internal hernia or volvulus of small bowel. No pelvic mass or adenopathy is seen. Slightly prominent mesenteric lymph nodes are seen most likely on an inflammatory basis due to the small bowel obstruction. Pression: 1. Dilated small bowel loops. Small bowel obstruction caused by either an internal hernia or distal small bowel volvulus. 2. Normal spleen not seen. 3. Abnormal appearing body and tail of the pancreas with what appears to be dilated pancreatic duct. Uncertain if findings are due to previous surgery as multiple surgical clips are seen around this region. Difficult to exclude infection or pancreatitis as well as difficult to exclude poorly seen mass. These findings are an interval change from previous exam. 4. Small right sided pleural effusion with right basilar atelectasis or less likely pneumonia. 5. Multiple small nonobstructing calculi within both kidneys. Prominence of both adrenal glands believed to be stable from prior exam. Diagnostic code #5 I agree with preliminary report issued by [employer] ([facility] report finalized on 07/02/17, 2:44 PM Central Time)
--- NOTE | 2017-07-04 07:34 | CONS ---
CONSULTING PHYSICIAN: Jack Pereyra DATE OF CONSULTATION: 07/02/2017 REQUESTING PHYSICIAN: Montrell Melgar PA-C Thank you for asking me to see this interesting gentleman in consultation. He is a gentleman who has had multiple problems related to drinking and to smoking. He most recently underwent a distal pancreatectomy and splenectomy for a chronic pancreatitis problem. This was performed at the [facility] in [place]. Postoperatively, he has done well up until Tuesday when all of a sudden in the afternoon he began feeling severe crampy abdominal pain of sudden onset, and since that time, he has had that symptom. He began vomiting and has been vomiting a copious amounts since that time. He has had no bowel movement in 3 days nor has he had any passage of significant flatus in that time. He came to the emergency room where his white count is 13,000. He is afebrile. His CT scan shows a mid small-bowel obstruction with tapering point from 3 cm diameter down to 6 mm and that is in the left lower quadrant. The axial view of CT scan does show a twist pattern consistent with that of a partial volvulus. The blood supply to the vessels affected appeared to be satisfactory. He appears to have a small-bowel obstruction secondary to a volvulus of the small bowel. He is only 4 weeks postop from a pancreatectomy and splenectomy with high platelets. My thoughts are that he may well have a small bowel volvulus in the abdomen that needs a very major procedure performed that it probably will be cogent that he be transferred to a larger facility where more surgical talent can be involved either technically or as far as decision making. I have discussed this with Dr. Frank Mccullough at the [facility] in [place], and he is more happy to accept him in consultation, and the patient will be transferred by his family since he says that his last ambulance ride to [place] was about 6000 dollars and he said he cannot afford that, so he will be transferred by family, given some extra IV fluid. He will be transferred with his NG tube and Dr. Mccullough will be notified upon his arrival. NABILA /[id number] EILEEN
== END 2017-07-02 16:20 ==
LOC: JD.ED 10:14
DX: K56.2 Volvulus (principal); K66.0 Peritoneal adhesions (postprocedural) (postinfection); I10 Essential (primary) hypertension; K21.9 Gastro-esophageal reflux disease without esophagitis; F17.210 Nicotine dependence, cigarettes, uncomplicated; Z98.890 Other specified postprocedural states
CPT/HCPCS: 36415; 74176; 80053; 81001; 83690; 85025; 85610; 86140; 96361; 96374; 96375; 96376; 99285; G0480; J1170; J2405; J7040; J7050; Q9963; 99284

== ENCOUNTER 2019-07-20 15:11 | Emergency (ER) | payer BC, OTHER ==
[2019-07-20 15:22] VITALS: BP 143/95; PULSE 91
[2019-07-20] MEDS ORDERED: Sodium Chloride 0.9% 10 ML Syringe FLUSH PRN (15:40)
--- NOTE | 2019-07-20 15:43 | EDM.PDOCBH ---
ED HPI GENERAL MEDICAL PROBLEM - General Chief Complaint: Drug or Alcohol Abuse Stated Complaint: LAW ENFORCEMENT Time Seen by Provider: 07/20/19 15:18 Source of Information: Reports: Patient History Limitations: Reports: No Limitations - History of Present Illness INITIAL COMMENTS - FREE TEXT/NARRATIVE: Patient is an unfortunate 49-year-old male who is brought to the emergency department against his will undergo emergency treatment order for alcoholism. Patient is an alcoholic who drinks a fifth of vodka per day on weekends only. Patient reports that he does not have any symptoms at this time and he is upset that he is here and does not want to be here and does not want to participate in the emergency treatment order. Patient denies any chest pain, no nausea, no vomiting, no hematemesis, no hematochezia, no melena. She denies any abdominal pain at this time. In the report of the emergency custodial is reported that the patient was in outpatient treatment that was ordered in April 2018 and was noncompliant on his follow through. - Related Data Allergies Allergy/AdvReac Type Severity Reaction Status Date / Time No Known Allergies Allergy Verified 07/02/17 12:58 Home Meds: Home Meds Insulin Isophane NPH, Human [NovoLIN N] 5 unit INJECT ASDIRECTED 07/20/19 [ History] Treshiba 15 unit INJECT DAILY 07/20/19 [History] metFORMIN [Glucophage] 1,000 mg PO BID 07/20/19 [History] Past Medical History HEENT History: Reports: None Cardiovascular History: Reports: Hypertension Other Respiratory History: pt denies hx of respiratory issues but was admitted for respiratory issues Gastrointestinal History: Reports: GERD, Pancreatitis Other Gastrointestinal History: 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, 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 Musculoskeletal History: Reports: Gout Other Musculoskeletal History: patient states "episode of gout many years ago" Psychiatric History: Reports: Addiction Other Psychiatric History: alcohol abuse Endocrine/Metabolic History: Reports: Diabetes, Type II - Infectious Disease History Infectious Disease History: Reports: Chicken Pox - Past Surgical History Respiratory Surgical History: Reports: Thoracentesis GI Surgical History: Reports: Hernia, Inguinal Musculoskeletal Surgical History: Reports: None Social & Family History - Family History Family Medical History: Noncontributory HEENT: Reports: Glaucoma Cardiac: Reports: Bypass, DC, Pacemaker, Other (See Below) Other Cardiac Family History: stroke GI: Reports: Pancreatitis Other GI Family History: daughter had pancreas removed Endocrine/Metabolic: Reports: Diabetes, type II Other Endocrine/Metabolic Family History: diet controlled - Tobacco Use Smoking Status *Q: Current Every Day Smoker Years of Tobacco use: 20 Packs/Tins Daily: 1 - Caffeine Use Caffeine Use: Reports: Coffee, Soda - Recreational Drug Use Recreational Drug Use: No - Living Situation & Occupation Occupation: Employed ED ROS GENERAL - Review of Systems Review Of Systems: See Below Constitutional: Denies: Fever, Chills HEENT: Reports: No Symptoms Respiratory: Reports: No Symptoms Cardiovascular: Reports: No Symptoms Endocrine: Reports: No Symptoms GI/Abdominal: Denies: Abdominal Pain, Mucous in Stool, Nausea : Reports: No Symptoms Musculoskeletal: Reports: No Symptoms Skin: Denies: Dryness, Bruising Neurological: Reports: No Symptoms Psychiatric: Reports: No Symptoms Hematologic/Lymphatic: Reports: No Symptoms Immunologic: Reports: No Symptoms ED EXAM, BEHAVIORAL HEALTH - Physical Exam Exam: See Below Exam Limited By: No Limitations General Appearance: Alert, WD/WN, No Apparent Distress Nose: Normal Inspection, Normal Mucosa, No Blood Throat/Mouth: Normal Inspection, Normal Lips, Normal Teeth, Normal Gums, Normal Oropharynx, Normal Voice, No Airway Compromise Head: Atraumatic, Normocephalic Neck: Normal Inspection, Supple, Non-Tender, Full Range of Motion Respiratory/Chest: No Respiratory Distress, Lungs Clear, Normal Breath Sounds, No Accessory Muscle Use, Chest Non-Tender Cardiovascular: Normal Peripheral Pulses, Regular Rate, Rhythm, No Edema, No Gallop, No JVD, No Murmur, No Rub GI/Abdominal: Normal Bowel Sounds, Soft, Non-Tender, No Organomegaly, No Distention, No Abnormal Bruit, No Mass Back Exam: Normal Inspection, Full Range of Motion, NT Extremities: Normal Inspection, Normal Range of Motion, Non-Tender, Normal Capillary Refill, No Pedal Edema Neurological: Alert, Normal Mood/Affect Skin Exam: Warm, Dry, No rash COURSE, BEHAVIORAL HEALTH COMP - Course Vital Signs: Last Vital Signs Temp 97.6 F 07/20/19 15:21 Pulse 91 07/20/19 15:21 Resp 20 07/20/19 15:21 BP 143/95 H 07/20/19 15:21 Pulse Ox 100 07/20/19 15:21 Orders, Labs, Meds: Active Orders 24 hr Category Date Time Status Sodium Chloride 0.9% [Saline Flush] Med 07/20/19 15:40 Active 10 ml FLUSH ASDIRECTED PRN Saline Lock Insert [OM.PC] Stat Oth 07/20/19 15:40 Ordered Medication Orders Sodium Chloride (Saline Flush) 10 ml FLUSH ASDIRECTED PRN PRN Reason: Keep Vein Open Laboratory Tests 07/20/19 07/20/19 07/20/19 Range/Units 15:30 15:30 16:00 WBC 8.93 (4.23-9.07) K/mm3 RBC 4.40 L (4.63-6.08) M/mm3 Hgb 14.7 (13.7-17.5) gm/dl Hct 43.2 (40.1-51.0) % MCV 98.2 H D (79.0-92.2) fl MCH 33.4 H (25.7-32.2) pg MCHC 34.0 (32.2-35.5) g/dl RDW Std Deviation 52.0 H (35.1-43.9) fL Plt Count 345 H D (163-337) K/mm3 MPV 9.8 (9.4-12.3) fl Neut % (Auto) 53.3 (34.0-67.9) % Lymph % (Auto) 31.7 (21.8-53.1) % [place] % (Auto) 11.5 (5.3-12.2) % Eos % (Auto) 2.5 (0.8-7.0) Baso % (Auto) 1.0 (0.1-1.2) % Neut # (Auto) 4.76 (1.78-5.38) K/mm3 Lymph # (Auto) 2.83 (1.32-3.57) K/mm3 [place] # (Auto) 1.03 H (0.30-0.82) K/mm3 Eos # (Auto) 0.22 (0.04-0.54) K/mm3 Baso # (Auto) 0.09 H (0.01-0.08) K/mm3 Sodium (136-145) mEq/L Potassium (3.5-5.1) mEq/L Chloride (98-107) mEq/L Carbon Dioxide (21-32) mEq/L Anion Gap (5-15) BUN (7-18) mg/dL Creatinine (0.7-1.3) mg/dL Est Cr Clr Drug Dosing mL/min Estimated GFR (MDRD) (>60) mL/min BUN/Creatinine Ratio (14-18) Glucose (74-106) mg/dL Calcium (8.5-10.1) mg/dL Total Bilirubin (0.2-1.0) mg/dL AST (15-37) U/L ALT (16-63) U/L Alkaline Phosphatase (46-116) U/L Total Protein (6.4-8.2) g/dl Albumin (3.4-5.0) g/dl Globulin gm/dL Albumin/Globulin Ratio (1-2) Lipase (73-393) U/L TSH 3rd Generation (0.358-3.74) uIU/mL Urine Color Light yellow (Yellow) Urine Appearance Clear (Clear) Urine pH 6.5 (5.0-8.0) Ur Specific [place] 1.010 (1.005-1.030) Urine Protein Negative (Negative) Urine Glucose (UA) Negative (Negative) Urine Ketones Negative (Negative) Urine Occult Blood Negative (Negative) Urine Nitrite Negative (Negative) Urine Bilirubin Negative (Negative) Urine Urobilinogen 0.2 (0.2-1.0) Ur Leukocyte Esterase Negative (Negative) Salicylates (2.8-20) mg/dL Urine Opiates Screen Negative (LUSPXK=116) Ur Buprenorphine Scrn Negative (CUTOFF=10) Ur Oxycodone Screen Negative (VZS7HN=960) Urine Methadone Screen Negative (YHF6ET=462) Ur Propoxyphene Screen Negative (PWZFFK=625) Acetaminophen (10-30) ug/mL Ur Barbiturates Screen Negative (KAVNKP=273) Ur Tricyclics Screen Negative (TLDGRM=658) Ur Phencyclidine Scrn Negative (CUTOFF=25) Ur Amphetamine Screen Negative (HXHYBU=348) U Methamphetamines Scrn Negative (ZBRRIV=670) U Benzodiazepines Scrn Negative (OOIZOT=423) U Cocaine Metab Screen Negative (OQJHHK=775) U Marijuana (THC) Screen Negative (CUTOFF=50) Ethyl Alcohol (0.00) gm% 07/20/19 07/20/19 Range/Units 16:00 16:00 WBC (4.23-9.07) K/mm3 RBC (4.63-6.08) M/mm3 Hgb (13.7-17.5) gm/dl Hct (40.1-51.0) % MCV (79.0-92.2) fl MCH (25.7-32.2) pg MCHC (32.2-35.5) g/dl RDW Std Deviation (35.1-43.9) fL Plt Count (163-337) K/mm3 MPV (9.4-12.3) fl Neut % (Auto) (34.0-67.9) % Lymph % (Auto) (21.8-53.1) % [place] % (Auto) (5.3-12.2) % Eos % (Auto) (0.8-7.0) Baso % (Auto) (0.1-1.2) % Neut # (Auto) (1.78-5.38) K/mm3 Lymph # (Auto) (1.32-3.57) K/mm3 [place] # (Auto) (0.30-0.82) K/mm3 Eos # (Auto) (0.04-0.54) K/mm3 Baso # (Auto) (0.01-0.08) K/mm3 Sodium 139 (136-145) mEq/L Potassium 3.8 (3.5-5.1) mEq/L Chloride 105 D (98-107) mEq/L Carbon Dioxide 23 D (21-32) mEq/L Anion Gap 14.8 (5-15) BUN 6 L D (7-18) mg/dL Creatinine 0.6 L D (0.7-1.3) mg/dL Est Cr Clr Drug Dosing 127.57 mL/min Estimated GFR (MDRD) > 60 (>60) mL/min BUN/Creatinine Ratio 10.0 L (14-18) Glucose 251 H (74-106) mg/dL Calcium 8.5 D (8.5-10.1) mg/dL Total Bilirubin 0.5 (0.2-1.0) mg/dL AST 19 (15-37) U/L ALT 22 (16-63) U/L Alkaline Phosphatase 84 (46-116) U/L Total Protein 6.8 (6.4-8.2) g/dl Albumin 3.5 (3.4-5.0) g/dl Globulin 3.3 gm/dL Albumin/Globulin Ratio 1.1 (1-2) Lipase 68 L (73-393) U/L TSH 3rd Generation 1.863 (0.358-3.74) uIU/mL Urine Color (Yellow) Urine Appearance (Clear) Urine pH (5.0-8.0) Ur Specific [place] (1.005-1.030) Urine Protein (Negative) Urine Glucose (UA) (Negative) Urine Ketones (Negative) Urine Occult Blood (Negative) Urine Nitrite (Negative) Urine Bilirubin (Negative) Urine Urobilinogen (0.2-1.0) Ur Leukocyte Esterase (Negative) Salicylates 4.8 (2.8-20) mg/dL Urine Opiates Screen (NHJIAX=580) Ur Buprenorphine Scrn (CUTOFF=10) Ur Oxycodone Screen (JAF9WG=432) Urine Methadone Screen (JVV7OD=311) Ur Propoxyphene Screen (BMIKJX=924) Acetaminophen 0 L (10-30) ug/mL Ur Barbiturates Screen (PSZVON=213) Ur Tricyclics Screen (TKCJRL=889) Ur Phencyclidine Scrn (CUTOFF=25) Ur Amphetamine Screen (OYSQGR=885) U Methamphetamines Scrn (XQRZDJ=497) U Benzodiazepines Scrn (VLIPWG=255) U Cocaine Metab Screen (AMGLMI=954) U Marijuana (THC) Screen (CUTOFF=50) Ethyl Alcohol 0.15 (0.00) gm% Medications Generic Name Dose Route Start Last Admin Trade Name Freq PRN Reason Stop Dose Admin Sodium Chloride 10 ml 07/20/19 15:40 Saline Flush FLUSH ASDIRECTED PRN Keep Vein Open Medical Clearance: 07/20/19 16:41 Patient's labs show no clinically significant abnormalities patient is medically cleared for psych facility at this time Discharge vs Psych Eval/Treatment:: 07/20/19 17:02 Discussed case with who accepts patient to [facility] transfer patient via [facility] deputy Departure - Departure Time of Disposition: 17:03 Disposition: DC/Tfer to Psych Hosp/Unit [address] Clinical Impression: Alcoholism - Discharge Information Referrals: PCP,Unknown [Ordering Only Provider] - - My Orders Last 24 Hours: My Active Orders 07/20/19 15:40 Sodium Chloride 0.9% [Saline Flush] 10 ml FLUSH ASDIRECTED PRN Saline Lock Insert [OM.PC] Stat - Assessment/Plan Last 24 Hours: My Active Orders 07/20/19 15:40 Sodium Chloride 0.9% [Saline Flush] 10 ml FLUSH ASDIRECTED PRN Saline Lock Insert [OM.PC] Stat
[2019-07-20 16:38] LABS: ACETAMINOPHEN 0 ug/mL (10-30)
== END 2019-07-20 17:15 ==
LOC: JD.ED 15:11
DX: F10.20 Alcohol dependence, uncomplicated (principal); I10 Essential (primary) hypertension; E11.9 Type 2 diabetes mellitus without complications; Z79.4 Long term (current) use of insulin; M10.9 Gout, unspecified; F17.210 Nicotine dependence, cigarettes, uncomplicated; Y90.6 Blood alcohol level of 120-199 mg/100 ml
CPT/HCPCS: 36415; 80053; 80306; 81003; 83690; 84443; 85025; 99283; 99284; G0480

== ENCOUNTER 2020-03-28 06:17 | Inpatient (IN) | payer BC, OTHER ==
--- NOTE | 2020-03-28 07:57 | EDM.PDOC ---
ED HPI GENERAL MEDICAL PROBLEM - General Chief Complaint: Diabetic Complaint Stated Complaint: VOMITING X 2 DAYS Time Seen by Provider: 03/28/20 07:47 - History of Present Illness INITIAL COMMENTS - FREE TEXT/NARRATIVE: 50-year-old male presents the emergency room with nausea vomiting and elevated blood sugars. This started about a day and 1/2 to 2 days ago. He is vomiting at least every hour. Patient has what sounds like type 1 diabetes, however he is on metformin. His diabetes is due to pancreatitis brought on by alcoholism. The patient is no longer drinking. Patient has not had any significant bowel movements. Cade galloway is noticed that his vomitus material has been getting darker over the last day. And is almost completely black. His blood sugars have been running 400- 500. Patient has significant abdominal discomfort however this is not as bad as the burning he has noticed in the back of his throat. Patient denies any black or tarry stools but he has not been having any significant BMs lately. - Related Data Allergies Allergy/AdvReac Type Severity Reaction Status Date / Time No Known Allergies Allergy Verified 03/28/20 06:50 Home Meds: Home Meds Insulin Isophane NPH, Human [NovoLIN N] 5 unit INJECT ASDIRECTED 07/20/19 [History] Treshiba 15 unit INJECT DAILY 07/20/19 [History] metFORMIN [Glucophage] 1,000 mg PO BID 07/20/19 [History] Past Medical History HEENT History: Reports: None Cardiovascular History: Reports: Hypertension Other Respiratory History: pt denies hx of respiratory issues but was admitted for respiratory issues Gastrointestinal History: Reports: GERD, Pancreatitis Other Gastrointestinal History: 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, 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 Musculoskeletal History: Reports: Gout Other Musculoskeletal History: patient states "episode of gout many years ago" Psychiatric History: Reports: Addiction Other Psychiatric History: alcohol abuse Endocrine/Metabolic History: Reports: Diabetes, Type II - Infectious Disease History Infectious Disease History: Reports: Chicken Pox - Past Surgical History Respiratory Surgical History: Reports: Thoracentesis GI Surgical History: Reports: Hernia, Inguinal Musculoskeletal Surgical History: Reports: None Social & Family History - Family History Family Medical History: Noncontributory HEENT: Reports: Glaucoma Cardiac: Reports: Bypass, [place], Pacemaker, Other (See Below) Other Cardiac Family History: stroke GI: Reports: Pancreatitis Other GI Family History: daughter had pancreas removed Endocrine/Metabolic: Reports: Diabetes, type II Other Endocrine/Metabolic Family History: diet controlled - Tobacco Use Smoking Status *Q: Unknown Ever Smoked - Caffeine Use Caffeine Use: Reports: Coffee, Soda - Recreational Drug Use Recreational Drug Use: No - Living Situation & Occupation Occupation: Employed ED ROS GENERAL - Review of Systems Review Of Systems: See Below Constitutional: Denies: Fever, Chills HEENT: Reports: No Symptoms Respiratory: Reports: No Symptoms Cardiovascular: Reports: No Symptoms GI/Abdominal: Reports: Abdominal Pain, Diarrhea, Hematemesis, Nausea, Vomiting. Denies: Black Stool, Bloody Stool, Constipation : Reports: No Symptoms Musculoskeletal: Reports: Other (He is crampy) Skin: Reports: No Symptoms Neurological: Reports: No Symptoms Psychiatric: Reports: No Symptoms, Other (Denies any drinking.) ED EXAM GENERAL NO PERIP PULSE - Physical Exam Exam: See Below Exam Limited By: No Limitations General Appearance: Alert, No Apparent Distress Eye Exam: Bilateral Eye: Normal Inspection Ears: Normal External Exam, Normal Canal, Hearing Grossly Normal, Normal TMs Nose: Normal Inspection, Normal Mucosa, No Blood Throat/Mouth: Normal Inspection, Normal Lips, Normal Teeth, Normal Gums, Normal Oropharynx, Normal Voice, No Airway Compromise, Other (Semi-dry mucosa) Head: Atraumatic, Normocephalic Neck: Normal Inspection, Supple. No: Lymphadenopathy (L), Lymphadenopathy (R) Respiratory/Chest: No Respiratory Distress, Lungs Clear, Normal Breath Sounds Cardiovascular: Regular Rate, Rhythm, No Edema, No Murmur GI/Abdominal: Normal Bowel Sounds, Soft, Other (Vague nonspecific nonlocalizing discomfort no rigidity rebound or guarding noted) Back Exam: Normal Inspection. No: CVA Tenderness (L), CVA Tenderness (R) Extremities: Normal Inspection Course - Vital Signs Last Recorded V/S: Last Vital Signs Temp 36.1 C 03/28/20 06:51 Pulse 125 H 03/28/20 09:55 Resp 20 03/28/20 09:55 BP 144/95 H 03/28/20 09:55 Pulse Ox 100 03/28/20 09:55 Orthostatic Blood Pressure [ 100/75 Standing] Orthostatic Blood Pressure [ 158/101 Supine] - Orders/Labs/Meds Orders: Active Orders 24 hr Category Date Time Status Glucose [Blood Glucose Check, Bedside] [RC] ONETIME Care 03/28/20 08:25 Active ETHANOL BLOOD MEDICAL [CHEM] Stat Lab 03/28/20 06:48 Results KETONES,BLOOD [CHEM] Stat Lab 03/28/20 07:58 Ordered KETONES,URINE [URIN] Stat Lab 03/28/20 08:36 Ordered OSMOLALITY,SERUM [CHEM] Stat Lab 03/28/20 06:48 Results UA RFX TEDDY AND CULT IF INDIC [URIN] Stat Lab 03/28/20 07:58 Ordered Insulin Regular, Human [HumuLIN R] 100 unit Med 03/28/20 09:00 Active Sodium Chloride 0.9% [Normal Saline] 99 ml IV TITRATE Medication Orders Acetaminophen (Tylenol) 650 mg PO Q4H PRN PRN Reason: Pain (Mild 1-3)/fever Enoxaparin Sodium (Lovenox) 30 mg SUBCUT Q24H ÁNGELA Insulin Human Regular 100 unit (/ Sodium Chloride) 100 mls @ 6.577 mls/hr IV TITRATE ÁNGELA; Protocol Last Admin: 03/28/20 09:25 Dose: 0.1 units/kg/hr, 6.577 mls/hr Documented by: CYNDI Cosigned by: DIANE Dextrose/Water (Dextrose 10% In Water) 1,000 mls @ 40 mls/hr IV ASDIRECTED ÁNGELA Lactated Ringer's (Ringers, Lactated) 1,000 mls @ 150 mls/hr IV ASDIRECTED ÁNGELA Miscellaneous Information (Remove Patch) 1 ea TRDERM Q24H ÁNGELA Nicotine (Habitrol) 21 mg TRDERM Q24H ÁNGELA Ondansetron HCl (Zofran) 4 mg IV Q6H PRN PRN Reason: Nausea/Vomiting Ondansetron HCl (Zofran Odt) 4 mg PO Q6H PRN PRN Reason: nausea, able to take PO Labs: Laboratory Tests 03/28/20 03/28/20 03/28/20 Range/Units 06:48 06:48 06:48 WBC 17.59 H (4.23-9.07) K/mm3 RBC 5.99 (4.63-6.08) M/mm3 Hgb 18.1 H D (13.7-17.5) gm/dl Hct 56.3 H (40.1-51.0) % MCV 94.0 H D (79.0-92.2) fl MCH 30.2 (25.7-32.2) pg MCHC 32.1 L (32.2-35.5) g/dl RDW Std Deviation 49.8 H (35.1-43.9) fL Plt Count 452 H D (163-337) K/mm3 MPV 11.2 (9.4-12.3) fl Neut % (Auto) 88.9 H (34.0-67.9) % Lymph % (Auto) 3.4 L (21.8-53.1) % Andrews % (Auto) 7.2 (5.3-12.2) % Eos % (Auto) 0.1 L (0.8-7.0) Baso % (Auto) 0.1 (0.1-1.2) % Neut # (Auto) 15.65 H (1.78-5.38) K/mm3 Lymph # (Auto) 0.60 L (1.32-3.57) K/mm3 Andrews # (Auto) 1.26 H (0.30-0.82) K/mm3 Eos # (Auto) 0.01 L (0.04-0.54) K/mm3 Baso # (Auto) 0.02 (0.01-0.08) K/mm3 Manual Slide Review Abnormal smear Puncture Site ABG pH (7.35-7.45) ABG pCO2 (35.0-45.0) mmHg ABG pO2 (80.0-100.0) mmHg ABG HCO3 (22.0-26.0) meq/L ABG O2 Saturation (96.0-97.0) % ABG Base Excess (-2-2.0) Rogelio Test A-a Gradient mmHg O2 Delivery Device FiO2 (21.00-100.00) % Sodium 126 L D (136-145) mEq/L Potassium 4.4 (3.5-5.1) mEq/L Chloride 72 L D (98-107) mEq/L Carbon Dioxide 13 L D (21-32) mEq/L Anion Gap 45.4 H (5-15) BUN 49 H D (7-18) mg/dL Creatinine 3.0 H D (0.7-1.3) mg/dL Est Cr Clr Drug Dosing TNP Estimated GFR (MDRD) 22 (>60) mL/min BUN/Creatinine Ratio 16.3 (14-18) Glucose 941 H* (74-106) mg/dL Hemoglobin A1c (4.50-6.20) % Lactic Acid 6.8 H* (0.4-2.0) mmol/L Calcium 11.1 H D (8.5-10.1) mg/dL Phosphorus (2.6-4.7) mg/dL Magnesium (1.8-2.4) mg/dl Total Bilirubin 0.8 (0.2-1.0) mg/dL AST 11 L (15-37) U/L ALT 20 (16-63) U/L Alkaline Phosphatase 134 H (46-116) U/L Total Protein 9.1 H (6.4-8.2) g/dl Albumin 4.7 (3.4-5.0) g/dl Globulin 4.4 gm/dL Albumin/Globulin Ratio 1.1 (1-2) Triglycerides (<150) mg/dL Cholesterol (<200) mg/dL LDL Cholesterol Direct (<100) mg/dL HDL Cholesterol (40-59) mg/dL Ethyl Alcohol (0.00) gm% 03/28/20 03/28/20 03/28/20 Range/Units 06:48 06:48 06:48 WBC (4.23-9.07) K/mm3 RBC (4.63-6.08) M/mm3 Hgb (13.7-17.5) gm/dl Hct (40.1-51.0) % MCV (79.0-92.2) fl MCH (25.7-32.2) pg MCHC (32.2-35.5) g/dl RDW Std Deviation (35.1-43.9) fL Plt Count (163-337) K/mm3 MPV (9.4-12.3) fl Neut % (Auto) (34.0-67.9) % Lymph % (Auto) (21.8-53.1) % Andrews % (Auto) (5.3-12.2) % Eos % (Auto) (0.8-7.0) Baso % (Auto) (0.1-1.2) % Neut # (Auto) (1.78-5.38) K/mm3 Lymph # (Auto) (1.32-3.57) K/mm3 Andrews # (Auto) (0.30-0.82) K/mm3 Eos # (Auto) (0.04-0.54) K/mm3 Baso # (Auto) (0.01-0.08) K/mm3 Manual Slide Review Puncture Site ABG pH (7.35-7.45) ABG pCO2 (35.0-45.0) mmHg ABG pO2 (80.0-100.0) mmHg ABG HCO3 (22.0-26.0) meq/L ABG O2 Saturation (96.0-97.0) % ABG Base Excess (-2-2.0) Rogelio Test A-a Gradient mmHg O2 Delivery Device FiO2 (21.00-100.00) % Sodium (136-145) mEq/L Potassium (3.5-5.1) mEq/L Chloride (98-107) mEq/L Carbon Dioxide (21-32) mEq/L Anion Gap (5-15) BUN (7-18) mg/dL Creatinine (0.7-1.3) mg/dL Est Cr Clr Drug Dosing Estimated GFR (MDRD) (>60) mL/min BUN/Creatinine Ratio (14-18) Glucose (74-106) mg/dL Hemoglobin A1c 9.60 H (4.50-6.20) % Lactic Acid (0.4-2.0) mmol/L Calcium (8.5-10.1) mg/dL Phosphorus 10.9 H (2.6-4.7) mg/dL Magnesium 2.2 (1.8-2.4) mg/dl Total Bilirubin (0.2-1.0) mg/dL AST (15-37) U/L ALT (16-63) U/L Alkaline Phosphatase (46-116) U/L Total Protein (6.4-8.2) g/dl Albumin (3.4-5.0) g/dl Globulin gm/dL Albumin/Globulin Ratio (1-2) Triglycerides 493 H (<150) mg/dL Cholesterol 368 H (<200) mg/dL LDL Cholesterol Direct 231 H* (<100) mg/dL HDL Cholesterol 58.0 (40-59) mg/dL Ethyl Alcohol 0.00 (0.00) gm% 03/28/20 Range/Units 08:19 WBC (4.23-9.07) K/mm3 RBC (4.63-6.08) M/mm3 Hgb (13.7-17.5) gm/dl Hct (40.1-51.0) % MCV (79.0-92.2) fl MCH (25.7-32.2) pg MCHC (32.2-35.5) g/dl RDW Std Deviation (35.1-43.9) fL Plt Count (163-337) K/mm3 MPV (9.4-12.3) fl Neut % (Auto) (34.0-67.9) % Lymph % (Auto) (21.8-53.1) % Andrews % (Auto) (5.3-12.2) % Eos % (Auto) (0.8-7.0) Baso % (Auto) (0.1-1.2) % Neut # (Auto) (1.78-5.38) K/mm3 Lymph # (Auto) (1.32-3.57) K/mm3 Andrews # (Auto) (0.30-0.82) K/mm3 Eos # (Auto) (0.04-0.54) K/mm3 Baso # (Auto) (0.01-0.08) K/mm3 Manual Slide Review Puncture Site Lt radial ABG pH 7.25 L (7.35-7.45) ABG pCO2 27.0 L (35.0-45.0) mmHg ABG pO2 114.0 H (80.0-100.0) mmHg ABG HCO3 11.4 L (22.0-26.0) meq/L ABG O2 Saturation 96.9 (96.0-97.0) % ABG Base Excess -14.3 L (-2-2.0) Rogelio Test Positive A-a Gradient 2 mmHg O2 Delivery Device Room air FiO2 21.00 (21.00-100.00) % Sodium (136-145) mEq/L Potassium (3.5-5.1) mEq/L Chloride (98-107) mEq/L Carbon Dioxide (21-32) mEq/L Anion Gap (5-15) BUN (7-18) mg/dL Creatinine (0.7-1.3) mg/dL Est Cr Clr Drug Dosing Estimated GFR (MDRD) (>60) mL/min BUN/Creatinine Ratio (14-18) Glucose (74-106) mg/dL Hemoglobin A1c (4.50-6.20) % Lactic Acid (0.4-2.0) mmol/L Calcium (8.5-10.1) mg/dL Phosphorus (2.6-4.7) mg/dL Magnesium (1.8-2.4) mg/dl Total Bilirubin (0.2-1.0) mg/dL AST (15-37) U/L ALT (16-63) U/L Alkaline Phosphatase (46-116) U/L Total Protein (6.4-8.2) g/dl Albumin (3.4-5.0) g/dl Globulin gm/dL Albumin/Globulin Ratio (1-2) Triglycerides (<150) mg/dL Cholesterol (<200) mg/dL LDL Cholesterol Direct (<100) mg/dL HDL Cholesterol (40-59) mg/dL Ethyl Alcohol (0.00) gm% Meds: Medications Generic Name Dose Route Start Last Admin Trade Name Freq PRN Reason Stop Dose Admin Acetaminophen 650 mg 03/28/20 09:13 Tylenol PO Q4H PRN Pain (Mild 1-3)/fever Enoxaparin Sodium 30 mg 03/28/20 10:00 Lovenox SUBCUT Q24H [facility] Insulin Human Regular 100 unit 100 mls @ 6.577 mls/hr 03/28/20 09:00 03/28/20 09:25 / Sodium Chloride IV 0.1 units/kg/hr TITRATE ÁNGELA 6.577 mls/hr Administration Protocol 0.1 UNITS/KG/HR Dextrose/Water 1,000 mls @ 40 mls/hr 03/28/20 09:15 Dextrose 10% In Water IV ASDIRECTED [facility] Lactated Ringer's 1,000 mls @ 150 mls/hr 03/28/20 09:15 Ringers, Lactated IV ASDIRECTED [facility] Miscellaneous Information 1 ea 03/29/20 10:00 Remove Patch TRDERM Q24H [facility] Nicotine 21 mg 03/28/20 10:00 Habitrol TRDERM Q24H [facility] Ondansetron HCl 4 mg 03/28/20 09:13 Zofran IV Q6H PRN Nausea/Vomiting Ondansetron HCl 4 mg 03/28/20 09:13 Zofran Odt PO Q6H PRN nausea, able to take PO Discontinued Medications Generic Name Dose Route Start Last Admin Trade Name Jayme PRN Reason Stop Dose Admin Sodium Chloride 1,000 mls @ 999 mls/hr 03/28/20 08:02 03/28/20 08:39 Normal Saline IV 03/28/20 09:02 999 mls/hr ONETIME ONE Administration Sodium Chloride 1,000 mls @ 999 mls/hr 03/28/20 08:56 03/28/20 09:24 Normal Saline IV 03/28/20 09:56 999 mls/hr ONETIME ONE Administration Insulin Human Regular 5 unit 03/28/20 08:04 03/28/20 08:40 Humulin R IV 03/28/20 08:05 5 unit ONETIME ONE Administration - Re-Assessments/Exams Free Text/Narrative Re-Assessment/Exam: 03/28/20 08:41 Labs are coming in his lactic acid 6.8 the patient will be admitted. Case discussed with Dr. Gaxiola who will assume care Departure - Departure Time of Disposition: 08:41 Disposition: Admitted As Inpatient 65 Clinical Impression: Diabetic ketoacidosis, Hyperglycemia, Dehydration, Acute prerenal azotemia Abdominal pain Qualifiers: Abdominal location: upper abdomen, unspecified Qualified Code(s): R10.10 - Upper abdominal pain, unspecified - Discharge Information Sepsis Event Note (ED) - Evaluation Sepsis Screening Result: No Definite Risk - Focused Exam Vital Signs: Vital Signs Temp Pulse Resp BP Pulse Ox 03/28/20 06:51 36.1 C 122 H 16 158/101 H 100 - My Orders Last 24 Hours: My Active Orders 03/28/20 06:48 ETHANOL BLOOD MEDICAL [CHEM] Stat OSMOLALITY,SERUM [CHEM] Stat 03/28/20 07:58 KETONES,BLOOD [CHEM] Stat UA RFX TEDDY AND CULT IF INDIC [URIN] Stat 03/28/20 08:25 Glucose [Blood Glucose Check, Bedside] [RC] ONETIME 03/28/20 08:36 KETONES,URINE [URIN] Stat 03/28/20 09:00 Insulin Regular, Human [HumuLIN R] 100 unit Sodium Chloride 0.9% [Normal Saline] 99 ml IV TITRATE - Assessment/Plan Last 24 Hours: My Active Orders 03/28/20 06:48 ETHANOL BLOOD MEDICAL [CHEM] Stat OSMOLALITY,SERUM [CHEM] Stat 03/28/20 07:58 KETONES,BLOOD [CHEM] Stat UA RFX TEDDY AND CULT IF INDIC [URIN] Stat 03/28/20 08:25 Glucose [Blood Glucose Check, Bedside] [RC] ONETIME 03/28/20 08:36 KETONES,URINE [URIN] Stat 03/28/20 09:00 Insulin Regular, Human [HumuLIN R] 100 unit Sodium Chloride 0.9% [Normal Saline] 99 ml IV TITRATE
[2020-03-28] MEDS ORDERED: Sodium Chloride 0.9% 1,000 ML IV ONE ×2 (08:02→08:56)
[2020-03-28] MEDS ORDERED: Insulin Regular, Human 100 Units/ML 3 ML Vial IV ONE (08:04)
[2020-03-28] MEDS ORDERED: Acetaminophen 325 MG Tab PO PRN (09:13)
[2020-03-28] MEDS ORDERED: Dextrose 10% in Water 1,000 ML IV SCH (09:15)
--- NOTE | 2020-03-28 09:19 | PCM.HP.2 ---
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 As per patient he was in his usual stated of health until 3 days ago when he started having nausea followed by vomiting, at least 1 episode every hour. He measured his blood sugars, which were all above 400 for which he decided to come in for evaluation. Patient states he is an avid daily alcohol drinker, states his last drink was on Tuesday. Ran out of medications 3 days ago. - Related Data Allergies/Adverse Reactions: Allergies Allergy/AdvReac Type Severity Reaction Status Date / Time No Known Allergies Allergy Verified 03/28/20 06:50 Home Medications: Home Meds Insulin Isophane NPH, Human [NovoLIN N] 5 unit INJECT TIDMEALS 07/20/19 [History] Treshiba 15 unit INJECT DAILY 07/20/19 [History] Disulfiram [Antabuse] 250 mg PO DAILY 03/28/20 [History] Losartan [Cozaar] 25 mg PO DAILY 03/28/20 [History] Naltrexone Microspheres [Vivitrol] 380 mg IM ONETIME 03/28/20 [History] Venlafaxine [Effexor XR] 75 mg PO DAILY 03/28/20 [History] tadalafiL [Tadalafil] 10 mg PO DAILY PRN 03/28/20 [History] Past Medical History HEENT History: Reports: None Cardiovascular History: Reports: Hypertension Other Respiratory History: pt denies hx of respiratory issues but was admitted for respiratory issues Gastrointestinal History: Reports: GERD, Pancreatitis Other Gastrointestinal History: 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, 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 Musculoskeletal History: Reports: Gout Other Musculoskeletal History: patient states "episode of gout many years ago" Psychiatric History: Reports: Addiction Other Psychiatric History: alcohol abuse Endocrine/Metabolic History: Reports: Diabetes, Type II - Infectious Disease History Infectious Disease History: Reports: Chicken Pox - Past Surgical History Respiratory Surgical History: Reports: Thoracentesis GI Surgical History: Reports: Hernia, Inguinal Musculoskeletal Surgical History: Reports: None Social & Family History - Family History Family Medical History: Noncontributory HEENT: Reports: Glaucoma Cardiac: Reports: Bypass, [place], Pacemaker, Other (See Below) Other Cardiac Family History: stroke GI: Reports: Pancreatitis Other GI Family History: daughter had pancreas removed Endocrine/Metabolic: Reports: Diabetes, type II Other Endocrine/Metabolic Family History: diet controlled - Tobacco Use Smoking Status *Q: Unknown Ever Smoked - Caffeine Use Caffeine Use: Reports: Coffee, Soda - Recreational Drug Use Recreational Drug Use: No - Living Situation & Occupation Occupation: Employed H&P Review of Systems - Review of Systems: Review Of Systems: See Below General: Reports: Chills, Malaise, Weakness, Fatigue, Decreased Appetite, Weight Loss. Denies: Fever, Night Sweats, Diaphoresis, Weight Gain HEENT: Denies: Headaches, Hearing Changes, Rhinitis, Post Nasal Drip, Sinus Congestion, Sore Throat, Vertigo, Visual Changes Pulmonary: Reports: Shortness of Breath. Denies: Wheezing, Pleuritic Chest Pain, Cough, Sputum Cardiovascular: Reports: Lightheadedness. Denies: Chest Pain, Palpitations, Dyspnea on Exertion, Orthopnea, PND, Edema, Syncope, Claudication Gastrointestinal: Reports: Anorexia, Decreased Appetite, Nausea, Vomiting. Denies: Abdominal Pain, Black Stool, Bloody Stool, Constipation, Diarrhea, Difficulty Swallowing, Distension, Flatus, Hematemesis, Hematochezia, Melena, Mucous in Stool, Stool Incontinence Genitourinary: Denies: Dysuria, Frequency, Burning, Pain, Urgency, Incontinence Musculoskeletal: Denies: Joint Pain, Joint Swelling, Muscle Pain, Muscle Stiffness Skin: Denies: Cyanosis, Jaundice, Mottled, Pallor, Diaphoresis Psychiatric: Reports: Depression, Mood Lability, Anxiety. Denies: Confusion, Agitation Neurological: Reports: Dizziness. Denies: Headache, Numbness, Paresthesia Hematologic/Lymphatic: Denies: Easy Bleeding, Easy Bruising Exam - Exam Exam: See Below - Vital Signs Vital Signs: Last Vital Signs Temp 97.0 F 03/28/20 06:51 Pulse 122 H 03/28/20 06:51 Resp 16 03/28/20 06:51 BP 158/101 H 03/28/20 06:51 Pulse Ox 100 03/28/20 06:51 Orthostatic Blood Pressure [ 100/75 Standing] Orthostatic Blood Pressure [ 158/101 Supine] Weight: 65.771 kg - Exam Quality Assessment: Other (bitemporal muscle wasting) General: Alert, Oriented, Cooperative, Moderate Distress HEENT: Conjunctiva Clear, EACs Clear. No: Mucosa Moist & [place] (very dry without any lesions) Neck: Supple, Trachea Midline, +2 Carotid Pulse wo Bruit, Full Range of Motion. No: Lymphadenopathy Lungs: Clear to Auscultation, Normal Respiratory Effort. No: Decreased Breath Sounds, Crackles, Rales, Rhonchi, Rub, Stridor, Wheezing Cardiovascular: Regular Rhythm, Tachycardia. No: Systolic Murmur, Diastolic Murmur, Rubs, Gallop/S3, Gallop/S4 GI/Abdominal Exam: Soft, No Distention, No Mass, Tender. No: Normal Bowel Sounds (increased frequency) Back Exam: Normal Inspection, Full Range of Motion, Other (intercostal muscle wasting) Extremities: Normal Inspection, Normal Range of Motion, Non-Tender, No Pedal Edema Peripheral Pulses: 2+: Brachial (L), Brachial (R), Dorsalis Pedis (L), Dorsalis Pedis (R) Skin: Dry, Cool Psychiatric: Anxious - Patient Data Result Diagrams: 03/28/20 06:48 03/28/20 17:19 Sepsis Event Note - Evaluation Sepsis Screening Result: No Definite Risk Current Stage of Sepsis: Ruled Out Reason for Ruling Out Sepsis: no infectious source - Problem List (1) Diabetic ketoacidosis SNOMED Code(s): 429691095, 501616453 ICD Code: E11.10 - TYPE 2 DIABETES MELLITUS WITH KETOACIDOSIS WITHOUT COMA Status: Acute Current Visit: Yes (2) Hyperglycemia SNOMED Code(s): 11750768 ICD Code: R73.9 - HYPERGLYCEMIA, UNSPECIFIED Status: Acute Current Visit: Yes (3) High anion gap metabolic acidosis SNOMED Code(s): 40670017 ICD Code: E87.2 - ACIDOSIS Status: Acute Current Visit: Yes (4) Lactic acidosis SNOMED Code(s): 59115652 ICD Code: E87.2 - ACIDOSIS Status: Acute Current Visit: Yes (5) Hyponatremia with increased serum osmolality SNOMED Code(s): 41912480 ICD Code: E87.0 - HYPEROSMOLALITY AND HYPERNATREMIA; E87.1 - HYPO-OSMOLALITY AND HYPONATREMIA Status: Acute Current Visit: Yes (6) Compensated metabolic alkalosis SNOMED Code(s): 2614793 ICD Code: E87.3 - ALKALOSIS Status: Acute Current Visit: Yes (7) Volume depletion SNOMED Code(s): 340197964 ICD Code: E86.9 - VOLUME DEPLETION, UNSPECIFIED Status: Acute Current Visit: Yes (8) Acute kidney injury SNOMED Code(s): 01770088, 27162115 ICD Code: N17.9 - ACUTE KIDNEY FAILURE, UNSPECIFIED Status: Acute Current Visit: Yes (9) Secondary pancreatic insufficiency SNOMED Code(s): 515610038 ICD Code: K86.89 - OTHER SPECIFIED DISEASES OF PANCREAS Status: Acute Current Visit: Yes (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 SNOMED Code(s): 62223428 ICD Code: E89.1 - POSTPROCEDURAL HYPOINSULINEMIA; E13.9 - OTHER SPECIFIED DIABETES MELLITUS WITHOUT COMPLICATIONS; Z90.410 - ACQUIRED TOTAL ABSENCE OF PANCREAS Status: Acute Current Visit: Yes (11) Leukocytosis SNOMED Code(s): 203977677, 934439332 ICD Code: D72.829 - ELEVATED WHITE BLOOD CELL COUNT, UNSPECIFIED Status: Acute Current Visit: Yes (12) Hypertension SNOMED Code(s): 23700297 ICD Code: I10 - ESSENTIAL (PRIMARY) HYPERTENSION Status: Chronic Current Visit: No Qualifiers: Hypertension type: essential hypertension Qualified Code(s): I10 - Essential (primary) hypertension (13) Smoker SNOMED Code(s): 53225800 ICD Code: F17.200 - NICOTINE DEPENDENCE, UNSPECIFIED, UNCOMPLICATED Status: Acute Current Visit: Yes (14) Depression SNOMED Code(s): 88371965 ICD Code: F32.9 - MAJOR DEPRESSIVE DISORDER, SINGLE EPISODE, UNSPECIFIED Status: Acute Current Visit: Yes (15) Anxiety SNOMED Code(s): 42428760 ICD Code: F41.9 - ANXIETY DISORDER, UNSPECIFIED Status: Acute Current Visit: Yes (16) Medical non-compliance SNOMED Code(s): 396131734 ICD Code: Z91.19 - PATIENT'S NONCOMPLIANCE W OTH MEDICAL TREATMENT AND REGIMEN Status: Acute Current Visit: Yes (17) Alcohol abuse SNOMED Code(s): 30318656 ICD Code: F10.10 - ALCOHOL ABUSE, UNCOMPLICATED Status: Acute Current Visit: Yes Problem List Initiated/Reviewed/Updated: Yes Assessment/Plan Comment:: ASSESSMENT Diabetic ketoacidosis High anion gap metabolic acidosis, multifactorial (ketones, lactic acid) Compensated metabolic alkalosis Pseudohyponatremia 2/2 hyperglycemia JORDI 2/2 Volume depletion Diabetes 2/2 pancreatectomy Intractable nausea and vomiting, multifactorial - Has not been taking insulin, glucose levels >400 - Last alcoholic drink was Tuesday, symptoms worsened at that time Stopped using insulin 3 days ago because he ran out Measured glucose levels at home above 400 Labs - ABGs 7.25/27/114/11.4/96.9 - Gap 45 - Ketones in blood 18.45 and + in urine Elevated lactic acid secondary to hypoperfusion, patient has no infectious source--> Sepsis ruled out Uses Tresiba and Novolin at home, ran out Leukocytosis 2/2 volume depletion Hypertension MAP on admission 120 Takes Losartan at home, last dose 3 days ago Alcohol abuse Active smoker Depression and Anxiety Daily alcohol abuse since age 19, normally drinks vodka - Took Antabuse 7 months ago and stopped drinking - Has had multiple relapses, last one 2 weeks ago - Last drink was Tuesday - Takes Naltrexone daily Smokes 1ppd since age 19, has never tried to quit Takes Effexor - No suicidal or homicidal ideation - PHQ2 0/2 and GAD2 0/2 Medical non-compliance Unclear reason Patient in too much distress during evaluation --> will discuss later PLAN BY SYSTEMS: Neurology: Minimize central acting medications as possible. Frequent neurologic exams by nursing staff. CIWAA protocol Respiratory: Goal O2Sat >92% Nicotine patch Cardiovascular: LR at 150ml/hr PRN Hydralazine PRN Labetalol GI and Nutrition: NPO Kidney and Electrolytes: Strict monitoring of intake, output and overall fluid balance. Maintain neutral as possible. Avoid nephrotoxic medications. Medications to be dosed according to renal function. Monitor electrolytes and replace as needed. Trend creatinine and BUN. Endocrine: Insulin drip Hourly glucose checks BMP + Mg + PO4 every 4 hours Ketones every 8 hours ABG as needed Stat lipid panel and HbA1c D10 once glucose is below 200 Serum osmolarity Infectious Disease: Trend temperature. Panculture if febrile. Hematology and Coagulation: No active bleeding, no coagulopathy to correct, no need to transfuse blood products at the moment. Goal hemoglobin >7g Musculoskeletal and Skin: Out of bed as tolerated PROPHYLAXIS: DVT- Lovenox GI- not indicated CODE STATUS: FULL CODE DISPOSITION: Patient will be admitted to ICU for DKA protocol management. - Mortality Measure Prognosis:: Good
[2020-03-28] MEDS ORDERED: Enoxaparin 30 MG/0.3 ML Syringe SUBCUT SCH (10:00)
[2020-03-28 10:07] LABS: HEMOGLOBIN A1C 9.6 % (4.50-6.20)
[2020-03-28] MEDS ORDERED: Insulin NPH/Insulin Regular,Human 70-30 100 Units/ML 10 ML Vial SUBCUT ONE (10:47)
[2020-03-28] MEDS ORDERED: Insulin Regular, Human 100 Units/ML 3 ML Vial SUBCUT ONE (10:51)
[2020-03-28] MEDS: Nicotine 21 MG/24 Hr Patch TRDERM SCH (11:02)
[2020-03-28] MEDS: Ondansetron 4 MG/2 ML SDV IV PRN ×2 (11:05→17:22)
[2020-03-28] MEDS: Lactated Ringers 1,000 ML IV SCH ×3 (11:09→20:58)
[2020-03-28] MEDS ORDERED: Lactated Ringers 1,000 ML IV ONE ×2 (12:24→13:35)
[2020-03-28] MEDS: Insulin Glarg,Human.Rec.Analog 100 Unit/ML SUBCUT SCH (21:26)
[2020-03-28] MEDS ORDERED: Magnesium Sulfate/Water 2 GM in Premix Bag 1 BAG IV ONE (21:26)
[2020-03-29] MEDS: Ondansetron 4 MG Tab.DIS PO PRN ×2 (00:23→22:59)
[2020-03-29] MEDS: Lactated Ringers 1,000 ML IV SCH ×3 (02:21→15:26)
[2020-03-29] MEDS: Insulin Lispro 100 Units/ML 3 ML Vial SUBCUT SCH ×4 (06:23→17:50)
--- NOTE | 2020-03-29 07:40 | PCM.PN ---
- General Info Date of Service: 03/29/20 Subjective Update: Slept OK Has pain with swallowing described as burning Requesting liquid diet with nutritional supplements No pain or any other complaints - Patient Data Vitals - Most Recent: Last Vital Signs Temp 97.3 F 03/29/20 03:55 Pulse 96 03/29/20 03:55 Resp 18 03/29/20 03:55 BP 123/93 H 03/29/20 03:55 Pulse Ox 97 03/29/20 03:55 Weight - Most Recent: 64.864 kg - Exam General: Alert, Oriented, Cooperative, No Acute Distress HEENT: Pupils Equal, Pupils Reactive, EOMI, Mucous Membr. Moist/[place] Neck: Supple, Trachea Midline, No JVD, No Thyromegaly, +2 Carotid Pulse wo Bruit. No: Lymphadenopathy Lungs: Clear to Auscultation, Normal Respiratory Effort. No: Decreased Breath Sounds, Crackles, Rales, Rhonchi, Rub, Stridor, Wheezing Cardiovascular: Regular Rate, Regular Rhythm, No Murmurs. No: Gallops, Rubs GI/Abdominal Exam: Normal Bowel Sounds, Soft, Non-Tender. No: Distended, Guarding, Rigid, Rebound Extremities: Normal Inspection, Normal Range of Motion, Non-Tender, No Pedal Edema, Normal Capillary Refill Peripheral Pulses: 2+: Brachial (L), Brachial (R), Dorsalis Pedis (L), Dorsalis Pedis (R) Skin: Warm, Dry Neurological: No New Focal Deficit Psy/Mental Status: Normal Affect, Normal Mood Sepsis Event Note - Evaluation Sepsis Screening Result: No Definite Risk - Problem List & Annotations (1) Diabetic ketoacidosis SNOMED Code(s): 279759649, 960418178 Code(s): E11.10 - TYPE 2 DIABETES MELLITUS WITH KETOACIDOSIS WITHOUT COMA Status: Acute Current Visit: Yes (2) Hyperglycemia SNOMED Code(s): 68476943 Code(s): R73.9 - HYPERGLYCEMIA, UNSPECIFIED Status: Acute Current Visit: Yes (3) High anion gap metabolic acidosis SNOMED Code(s): 44664518 Code(s): E87.2 - ACIDOSIS Status: Acute Current Visit: Yes (4) Lactic acidosis SNOMED Code(s): 55607203 Code(s): E87.2 - ACIDOSIS Status: Acute Current Visit: Yes (5) Hyponatremia with increased serum osmolality SNOMED Code(s): 66514518 Code(s): E87.0 - HYPEROSMOLALITY AND HYPERNATREMIA; E87.1 - HYPO-OSMOLALITY AND HYPONATREMIA Status: Acute Current Visit: Yes (6) Compensated metabolic alkalosis SNOMED Code(s): 1441071 Code(s): E87.3 - ALKALOSIS Status: Acute Current Visit: Yes (7) Volume depletion SNOMED Code(s): 210270610 Code(s): E86.9 - VOLUME DEPLETION, UNSPECIFIED Status: Acute Current Visit: Yes (8) Acute kidney injury SNOMED Code(s): 45552914, 52176781 Code(s): N17.9 - ACUTE KIDNEY FAILURE, UNSPECIFIED Status: Acute Current Visit: Yes (9) Secondary pancreatic insufficiency SNOMED Code(s): 550287655 Code(s): K86.89 - OTHER SPECIFIED DISEASES OF PANCREAS Status: Acute Current Visit: Yes (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 SNOMED Code(s): 69165225 Code(s): E89.1 - POSTPROCEDURAL HYPOINSULINEMIA; E13.9 - OTHER SPECIFIED DIABETES MELLITUS WITHOUT COMPLICATIONS; Z90.410 - ACQUIRED TOTAL ABSENCE OF PANCREAS Status: Acute Current Visit: Yes (11) Leukocytosis SNOMED Code(s): 549818356, 557081801 Code(s): D72.829 - ELEVATED WHITE BLOOD CELL COUNT, UNSPECIFIED Status: Acute Current Visit: Yes (12) Hypertension SNOMED Code(s): 53280432 Code(s): I10 - ESSENTIAL (PRIMARY) HYPERTENSION Status: Chronic Current Visit: No Qualifiers: Hypertension type: essential hypertension Qualified Code(s): I10 - Essential (primary) hypertension (13) Smoker SNOMED Code(s): 71448708 Code(s): F17.200 - NICOTINE DEPENDENCE, UNSPECIFIED, UNCOMPLICATED Status: Acute Current Visit: Yes (14) Depression SNOMED Code(s): 99529608 Code(s): F32.9 - MAJOR DEPRESSIVE DISORDER, SINGLE EPISODE, UNSPECIFIED Status: Acute Current Visit: Yes (15) Anxiety SNOMED Code(s): 22758557 Code(s): F41.9 - ANXIETY DISORDER, UNSPECIFIED Status: Acute Current Visit: Yes (16) Medical non-compliance SNOMED Code(s): 287572342 Code(s): Z91.19 - PATIENT'S NONCOMPLIANCE W OTH MEDICAL TREATMENT AND REGIMEN Status: Acute Current Visit: Yes (17) Alcohol abuse SNOMED Code(s): 72737774 Code(s): F10.10 - ALCOHOL ABUSE, UNCOMPLICATED Status: Acute Current Visit: Yes (18) Dyslipidemia SNOMED Code(s): 930054877 Code(s): E78.5 - HYPERLIPIDEMIA, UNSPECIFIED Status: Acute Current Visit: Yes (19) Hypertriglyceridemia SNOMED Code(s): 315305005 Code(s): E78.1 - PURE HYPERGLYCERIDEMIA Status: Acute Current Visit: Yes (20) Hypokalemia SNOMED Code(s): 83151843 Code(s): E87.6 - HYPOKALEMIA Status: Acute Current Visit: No - Problem List Review Problem List Initiated/Reviewed/Updated: Yes - Assessment Assessment:: 03/28/2020 Intractable nausea and vomiting, multifactorial - Has not been taking insulin, glucose levels >400 - Last alcoholic drink was Tuesday, symptoms worsened at that time Stopped using insulin 3 days ago because he ran out Measured glucose levels at home above 400 Labs - ABGs 7.25/27/114/11.4/96.9 - Gap 45 - Ketones in blood 18.45 and + in urine Elevated lactic acid secondary to hypoperfusion, patient has no infectious source--> Sepsis ruled out Uses Tresiba and Novolin at home, ran out Leukocytosis 2/2 volume depletion MAP on admission 120 Takes Losartan at home, last dose 3 days ago Daily alcohol abuse since age 19, normally drinks vodka - Took Antabuse 7 months ago and stopped drinking - Has had multiple relapses, last one 2 weeks ago - Last drink was Tuesday - Takes Naltrexone daily Smokes 1ppd since age 19, has never tried to quit Takes Effexor - No suicidal or homicidal ideation - PHQ2 0/2 and GAD2 0/2 Admission plan - Insulin drip, BMP/Mg/PO4 every 4 hours, serum ketones every 8h, LR, NPO, hourly glucose checks Gap closed at 17:19PM 03/29/2020 Lab results - WBC up from 17.59 to 30.96 - Na up from 126 to 132 - K down from 4.4 to 3.5 - Anion gap from from 45.9 to 9.5 - GFR up from 23 to >60 - Serum glucose trend 203-941 - A1c- 9.5% - PO4 down from 10.9 to 1.3 - Magnesium down from 2.2 to 1.9 - Lactic acid down from 6.8 to 1.9 - Lipid panel: cholesterol- 363, HDL- 58, LDL- 231, TG- 493 - Ketones down from 18.54 to 1.86 VS trend - MAP trend 96-120 - Tmax 98.7 - HR 98-125x' I/O - UO 1,875 - Balance 24h -250 - Plan Plan:: BY SYSTEMS: Neurology: Minimize central acting medications as possible. Frequent neurologic exams by nursing staff. CIWAA protocol Continue home medications Respiratory: Goal O2Sat >92% Nicotine patch Cardiovascular: Restart home medications Start Rosuvastatin PRN Hydralazine PRN Labetalol GI and Nutrition: Diabetic diet GI cocktail prior to meals Glucerna instead of meals as tolerated Kidney and Electrolytes: Replace K and PO4 with 30mMol IV Strict monitoring of intake, output and overall fluid balance. Maintain neutral as possible. Avoid nephrotoxic medications. Medications to be dosed according to renal function. Monitor electrolytes and replace as needed. Trend creatinine and BUN. 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 Panculture if febrile. Peripheral blood smear Hematology and Coagulation: No active bleeding, no coagulopathy to correct, no need to transfuse blood products at the moment. Goal hemoglobin >7g Musculoskeletal and Skin: Out of bed as tolerated PROPHYLAXIS: DVT- Lovenox GI- not indicated CODE STATUS: FULL CODE DISPOSITION: Patient will remain admitted for glucose check for adjusted insulin regimen.
[2020-03-29] MEDS: Venlafaxine 75 MG Cap.ER PO SCH (08:45)
[2020-03-29] MEDS: Losartan 25 MG Tab PO SCH (08:45)
[2020-03-29] MEDS: Alum Hydrox/Mag Hydrox/Simeth 30 ML, Lidocaine 2% 15 ML PO PRN ×6 (09:20→19:50)
[2020-03-29] MEDS: Nicotine 21 MG/24 Hr Patch TRDERM SCH (10:02)
[2020-03-29] MEDS: Enoxaparin 40 MG/0.4 ML Syringe SUBCUT SCH (11:16)
[2020-03-29] MEDS: Insulin Glarg,Human.Rec.Analog 100 Unit/ML SUBCUT SCH (20:56)
[2020-03-30] MEDS: Alum Hydrox/Mag Hydrox/Simeth 30 ML, Lidocaine 2% 15 ML PO PRN ×8 (03:20→17:32)
[2020-03-30] MEDS: Insulin Lispro 100 Units/ML 3 ML Vial SUBCUT SCH ×3 (06:07→17:36)
[2020-03-30] MEDS: Venlafaxine 75 MG Cap.ER PO SCH ×2 (07:44→08:49)
[2020-03-30] MEDS: Losartan 25 MG Tab PO SCH (08:35)
[2020-03-30] MEDS ORDERED: Losartan 25 MG Tab PO STA (08:48)
[2020-03-30] MEDS: Nicotine 21 MG/24 Hr Patch TRDERM SCH (09:14)
[2020-03-30] MEDS ORDERED: Insulin Glarg,Human.Rec.Analog 100 Unit/ML SUBCUT STA (09:32)
[2020-03-30] MEDS: Enoxaparin 40 MG/0.4 ML Syringe SUBCUT SCH (10:27)
[2020-03-30] MEDS: Sucralfate 1 GM Tab PO SCH ×2 (10:27→17:35)
[2020-03-30] MEDS: Potassium Phosphates 30 MMOLE in Sodium Chloride 0.9% 500 ML IV SCH ×2 (10:27→15:18)
[2020-03-30] MEDS ORDERED: Potassium Chloride 20 MEQ Tab.ER PO ONE (11:00)
--- NOTE | 2020-03-30 15:30 | PCM.PN ---
- General Info Date of Service: 03/30/20 Subjective Update: Feeling a lot better Slept OK Tolerating diet Indigestion improved - Patient Data Vitals - Most Recent: Last Vital Signs Temp 97.4 F 03/30/20 08:39 Pulse 75 03/30/20 08:39 Resp 14 03/30/20 08:39 BP 124/91 H 03/30/20 09:15 Pulse Ox 100 03/30/20 08:39 Weight - Most Recent: 65.408 kg - Exam General: Alert, Oriented, Cooperative, No Acute Distress HEENT: Pupils Equal, Pupils Reactive, EOMI, Mucous Membr. Moist/[place] Neck: Supple, Trachea Midline, No JVD, No Thyromegaly, +2 Carotid Pulse wo Bruit. No: Lymphadenopathy Lungs: Clear to Auscultation, Normal Respiratory Effort. No: Decreased Breath Sounds, Crackles, Rales, Rhonchi, Rub, Stridor, Wheezing Cardiovascular: Regular Rate, Regular Rhythm. No: Murmurs, Gallops, Rubs GI/Abdominal Exam: Normal Bowel Sounds, Soft, Non-Tender. No: Distended, G uarding, Rigid, Rebound Back Exam: Normal Inspection, Full Range of Motion Extremities: Normal Inspection, Normal Range of Motion, No Pedal Edema, Normal Capillary Refill Peripheral Pulses: 2+: Radial (L), Radial (R), Dorsalis Pedis (L), Dorsalis Pedis (R) Skin: Warm, Dry, Intact Neurological: No New Focal Deficit Sepsis Event Note - Evaluation Sepsis Screening Result: No Definite Risk - Problem List & Annotations (1) Diabetic ketoacidosis SNOMED Code(s): 921037491, 865689542 Code(s): E11.10 - TYPE 2 DIABETES MELLITUS WITH KETOACIDOSIS WITHOUT COMA Status: Acute Current Visit: Yes (2) Hyperglycemia SNOMED Code(s): 62011144 Code(s): R73.9 - HYPERGLYCEMIA, UNSPECIFIED Status: Acute Current Visit: Yes (3) High anion gap metabolic acidosis SNOMED Code(s): 46944952 Code(s): E87.2 - ACIDOSIS Status: Acute Current Visit: Yes (4) Lactic acidosis SNOMED Code(s): 68659559 Code(s): E87.2 - ACIDOSIS Status: Acute Current Visit: Yes (5) Hyponatremia with increased serum osmolality SNOMED Code(s): 87884789 Code(s): E87.0 - HYPEROSMOLALITY AND HYPERNATREMIA; E87.1 - HYPO-OSMOLALITY AND HYPONATREMIA Status: Acute Current Visit: Yes (6) Compensated metabolic alkalosis SNOMED Code(s): 5851759 Code(s): E87.3 - ALKALOSIS Status: Acute Current Visit: Yes (7) Volume depletion SNOMED Code(s): 379460430 Code(s): E86.9 - VOLUME DEPLETION, UNSPECIFIED Status: Acute Current Visit: Yes (8) Acute kidney injury SNOMED Code(s): 92946133, 58301416 Code(s): N17.9 - ACUTE KIDNEY FAILURE, UNSPECIFIED Status: Acute Current Visit: Yes (9) Secondary pancreatic insufficiency SNOMED Code(s): 110513680 Code(s): K86.89 - OTHER SPECIFIED DISEASES OF PANCREAS Status: Acute Current Visit: Yes (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 SNOMED Code(s): 25707271 Code(s): E89.1 - POSTPROCEDURAL HYPOINSULINEMIA; E13.9 - OTHER SPECIFIED DIAB ETES MELLITUS WITHOUT COMPLICATIONS; Z90.410 - ACQUIRED TOTAL ABSENCE OF PANCREAS Status: Acute Current Visit: Yes (11) Leukocytosis SNOMED Code(s): 228513534, 778844951 Code(s): D72.829 - ELEVATED WHITE BLOOD CELL COUNT, UNSPECIFIED Status: Acute Current Visit: Yes (12) Hypertension SNOMED Code(s): 88170237 Code(s): I10 - ESSENTIAL (PRIMARY) HYPERTENSION Status: Chronic Current Visit: No Qualifiers: Hypertension type: essential hypertension Qualified Code(s): I10 - Essential (primary) hypertension (13) Smoker SNOMED Code(s): 99108347 Code(s): F17.200 - NICOTINE DEPENDENCE, UNSPECIFIED, UNCOMPLICATED Status: Acute Current Visit: Yes (14) Depression SNOMED Code(s): 44576590 Code(s): F32.9 - MAJOR DEPRESSIVE DISORDER, SINGLE EPISODE, UNSPECIFIED Status: Acute Current Visit: Yes (15) Anxiety SNOMED Code(s): 77129340 Code(s): F41.9 - ANXIETY DISORDER, UNSPECIFIED Status: Acute Current Visit: Yes (16) Medical non-compliance SNOMED Code(s): 169587252 Code(s): Z91.19 - PATIENT'S NONCOMPLIANCE W OTH MEDICAL TREATMENT AND REGIMEN Status: Acute Current Visit: Yes (17) Alcohol abuse SNOMED Code(s): 93521699 Code(s): F10.10 - ALCOHOL ABUSE, UNCOMPLICATED Status: Acute Current Visit: Yes (18) Dyslipidemia SNOMED Code(s): 776368703 Code(s): E78.5 - HYPERLIPIDEMIA, UNSPECIFIED Status: Acute Current Visit: Yes (19) Hypertriglyceridemia SNOMED Code(s): 322238227 Code(s): E78.1 - PURE HYPERGLYCERIDEMIA Status: Acute Current Visit: Yes (20) Hypokalemia SNOMED Code(s): 95523480 Code(s): E87.6 - HYPOKALEMIA Status: Acute Current Visit: No - Problem List Review Problem List Initiated/Reviewed/Updated: Yes - Assessment Assessment:: 03/28/2020 Intractable nausea and vomiting, multifactorial - Has not been taking insulin, glucose levels >400 - Last alcoholic drink was Tuesday, symptoms worsened at that time Stopped using insulin 3 days ago because he ran out Measured glucose levels at home above 400 Labs - ABGs 7.25/27/114/11.4/96.9 - Gap 45 - Ketones in blood 18.45 and + in urine Elevated lactic acid secondary to hypoperfusion, patient has no infectious source--> Sepsis ruled out Uses Tresiba and Novolin at home, ran out Leukocytosis 2/2 volume depletion MAP on admission 120 Takes Losartan at home, last dose 3 days ago Daily alcohol abuse since age 19, normally drinks vodka - Took Antabuse 7 months ago and stopped drinking - Has had multiple relapses, last one 2 weeks ago - Last drink was Tuesday - Takes Naltrexone daily Smokes 1ppd since age 19, has never tried to quit Takes Effexor - No suicidal or homicidal ideation - PHQ2 0/2 and GAD2 0/2 Admission plan - Insulin drip, BMP/Mg/PO4 every 4 hours, serum ketones every 8h, LR, NPO, hourly glucose checks Gap closed at 17:19PM 03/29/2020 Lab results - WBC up from 17.59 to 30.96 - Na up from 126 to 132 - K down from 4.4 to 3.5 - Anion gap from from 45.9 to 9.5 - GFR up from 23 to >60 - Serum glucose trend 203-941 - A1c- 9.5% - PO4 down from 10.9 to 1.3 - Magnesium down from 2.2 to 1.9 - Lactic acid down from 6.8 to 1.9 - Lipid panel: cholesterol- 363, HDL- 58, LDL- 231, TG- 493 - Ketones down from 18.54 to 1.86 VS trend - MAP trend 96-120 - Tmax 98.7 - HR 98-125x' I/O - UO 1,875 - Balance 24h -250 PLAN - Nicotine patch - Start Rosuvastatin - Started GI cocktails prior to meals - Replace K and PO4 with 30mMol IV - Insulin regimen - Lantus 30u bedtime - Lispro 5u TID AC 03/30/2020 - Lab results - WBC down from 30.96 to 16.62 - Na up from 132 to 139 - K down from 3.5 to 3.1 - GFR stable - PO4 1.9 - Mg 2.2 - POC glucose 220-331 - VS trend - MAP 96-114 - HR 75-100 - Tmax 98.6 - SatO2 >95% on RA - Plan Plan:: BY SYSTEMS: Neurology: Continue disulfiram and venlafaxine Respiratory: Goal O2Sat >92% Continue nicotine patch Cardiovascular: Increase losartan dose Continue Rosuvastatin PRN Hydralazine PRN Labetalol GI and Nutrition: Diabetic diet GI cocktail and Sucralfate prior to meals Glucerna instead of meals as tolerated Kidney and Electrolytes: Replace K and PO4 with 60mMol IV and KCl 40mEq PO x1 Strict monitoring of intake, output and overall fluid balance. Maintain neutral as possible. Avoid nephrotoxic medications. Medications to be dosed according to renal function. Monitor electrolytes and replace as needed. Trend creatinine and BUN. 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 Panculture if febrile. Hematology and Coagulation: No active bleeding, no coagulopathy to correct, no need to transfuse blood products at the moment. Goal hemoglobin >7g Musculoskeletal and Skin: Out of bed as tolerated PROPHYLAXIS: DVT- Lovenox GI- not indicated CODE STATUS: FULL CODE DISPOSITION: Patient will remain admitted for glucose check for adjusted insulin regimen and electrolyte replacements.
[2020-03-30] MEDS ORDERED: Insulin Glarg,Human.Rec.Analog 100 Unit/ML SUBCUT SCH (21:00)
[2020-03-31 04:43] VITALS: PULSE 67
[2020-03-31] MEDS: Sucralfate 1 GM Tab PO SCH (06:06)
[2020-03-31] MEDS: Insulin Lispro 100 Units/ML 3 ML Vial SUBCUT SCH (06:06)
[2020-03-31 07:51] VITALS: BP 120/92
[2020-03-31] MEDS: Alum Hydrox/Mag Hydrox/Simeth 30 ML, Lidocaine 2% 15 ML PO PRN ×2 (07:52)
[2020-03-31] MEDS: Venlafaxine 75 MG Cap.ER PO SCH (07:59)
[2020-03-31] MEDS ORDERED: amLODIPine 10 MG Tab PO SCH (09:00)
[2020-03-31] MEDS ORDERED: Losartan 25 MG Tab PO SCH (09:00)
[2020-03-31] MEDS: Nicotine 21 MG/24 Hr Patch TRDERM SCH (09:18)
--- NOTE | 2020-03-31 09:31 | PCM.DCSUM1 ---
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 As per patient he was in his usual stated of health until 3 days ago when he started having nausea followed by vomiting, at least 1 episode every hour. He measured his blood sugars, which were all above 400 for which he decided to come in for evaluation. Patient states he is an avid daily alcohol drinker, states his last drink was on Tuesday. Ran out of medications 3 days ago. Diagnosis: Stroke: No - Discharge Data Discharge Date: 03/31/20 Discharge Disposition: Home, Self-Care 01 Condition: Good - Referral to Home Health Primary Care Physician: Petra Ritter MD - Discharge Diagnosis/Problem(s) (1) Diabetic ketoacidosis SNOMED Code(s): 925382836, 620479003 ICD Code: E11.10 - TYPE 2 DIABETES MELLITUS WITH KETOACIDOSIS WITHOUT COMA Status: Acute Current Visit: Yes (2) Hyperglycemia SNOMED Code(s): 06471416 ICD Code: R73.9 - HYPERGLYCEMIA, UNSPECIFIED Status: Acute Current Visit: Yes (3) High anion gap metabolic acidosis SNOMED Code(s): 52359522 ICD Code: E87.2 - ACIDOSIS Status: Acute Current Visit: Yes (4) Lactic acidosis SNOMED Code(s): 23789864 ICD Code: E87.2 - ACIDOSIS Status: Acute Current Visit: Yes (5) Hyponatremia with increased serum osmolality SNOMED Code(s): 41230904 ICD Code: E87.0 - HYPEROSMOLALITY AND HYPERNATREMIA; E87.1 - HYPO-OSMOLALITY AND HYPONATREMIA Status: Acute Current Visit: Yes (6) Compensated metabolic alkalosis SNOMED Code(s): 0619955 ICD Code: E87.3 - ALKALOSIS Status: Acute Current Visit: Yes (7) Volume depletion SNOMED Code(s): 286990342 ICD Code: E86.9 - VOLUME DEPLETION, UNSPECIFIED Status: Acute Current Visit: Yes (8) Acute kidney injury SNOMED Code(s): 71042749, 92461244 ICD Code: N17.9 - ACUTE KIDNEY FAILURE, UNSPECIFIED Status: Acute Current Visit: Yes (9) Secondary pancreatic insufficiency SNOMED Code(s): 084296184 ICD Code: K86.89 - OTHER SPECIFIED DISEASES OF PANCREAS Status: Acute Current Visit: Yes (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 SNOMED Code(s): 18510260 ICD Code: E89.1 - POSTPROCEDURAL HYPOINSULINEMIA; E13.9 - OTHER SPECIFIED DIABETES MELLITUS WITHOUT COMPLICATIONS; Z90.410 - ACQUIRED TOTAL ABSENCE OF PANCREAS Status: Acute Current Visit: Yes (11) Leukocytosis SNOMED Code(s): 322550336, 238891490 ICD Code: D72.829 - ELEVATED WHITE BLOOD CELL COUNT, UNSPECIFIED Status: Acute Current Visit: Yes (12) Hypertension SNOMED Code(s): 30180991 ICD Code: I10 - ESSENTIAL (PRIMARY) HYPERTENSION Status: Chronic Current Visit: No Qualifiers: Hypertension type: essential hypertension Qualified Code(s): I10 - Essential (primary) hypertension (13) Smoker SNOMED Code(s): 73640760 ICD Code: F17.200 - NICOTINE DEPENDENCE, UNSPECIFIED, UNCOMPLICATED Status: Acute Current Visit: Yes (14) Depression SNOMED Code(s): 92038645 ICD Code: F32.9 - MAJOR DEPRESSIVE DISORDER, SINGLE EPISODE, UNSPECIFIED Status: Acute Current Visit: Yes (15) Anxiety SNOMED Code(s): 28168694 ICD Code: F41.9 - ANXIETY DISORDER, UNSPECIFIED Status: Acute Current Visit: Yes (16) Medical non-compliance SNOMED Code(s): 809129693 ICD Code: Z91.19 - PATIENT'S NONCOMPLIANCE W OTH MEDICAL TREATMENT AND REGIMEN Status: Acute Current Visit: Yes (17) Alcohol abuse SNOMED Code(s): 49022589 ICD Code: F10.10 - ALCOHOL ABUSE, UNCOMPLICATED Status: Acute Current Visit: Yes (18) Dyslipidemia SNOMED Code(s): 033161278 ICD Code: E78.5 - HYPERLIPIDEMIA, UNSPECIFIED Status: Acute Current Visit: Yes (19) Hypertriglyceridemia SNOMED Code(s): 610726661 ICD Code: E78.1 - PURE HYPERGLYCERIDEMIA Status: Acute Current Visit: Yes (20) Hypokalemia SNOMED Code(s): 06420682 ICD Code: E87.6 - HYPOKALEMIA Status: Acute Current Visit: No - Patient Summary/Data Consults: Consultations 07/24/20 09:13 Consult to Diabetic Nurse Specialist [CONS] Routine Consult to Circulation Clerk [CONS] Routine Respiratory Care Assess and Treatment [CONS] Routine Hospital Course: 03/28/2020 Intractable nausea and vomiting, multifactorial - Has not been taking insulin, glucose levels >400 - Last alcoholic drink was Tuesday, symptoms worsened at that time Stopped using insulin 3 days ago because he ran out Measured glucose levels at home above 400 Labs - ABGs 7.25/27/114/11.4/96.9 - Gap 45 - Ketones in blood 18.45 and + in urine Elevated lactic acid secondary to hypoperfusion, patient has no infectious source--> Sepsis ruled out Uses Tresiba and Novolin at home, ran out Leukocytosis 2/2 volume depletion MAP on admission 120 Takes Losartan at home, last dose 3 days ago Daily alcohol abuse since age 19, normally drinks vodka - Took Antabuse 7 months ago and stopped drinking - Has had multiple relapses, last one 2 weeks ago - Last drink was Tuesday - Takes Naltrexone daily Smokes 1ppd since age 19, has never tried to quit Takes Effexor - No suicidal or homicidal ideation - PHQ2 0/2 and GAD2 0/2 Admission plan - Insulin drip, BMP/Mg/PO4 every 4 hours, serum ketones every 8h, LR, NPO, hourly glucose checks Gap closed at 17:19PM 03/29/2020 Lab results - WBC up from 17.59 to 30.96 - Na up from 126 to 132 - K down from 4.4 to 3.5 - Anion gap from from 45.9 to 9.5 - GFR up from 23 to >60 - Serum glucose trend 203-941 - A1c- 9.5% - PO4 down from 10.9 to 1.3 - Magnesium down from 2.2 to 1.9 - Lactic acid down from 6.8 to 1.9 - Lipid panel: cholesterol- 363, HDL- 58, LDL- 231, TG- 493 - Ketones down from 18.54 to 1.86 VS trend - MAP trend 96-120 - Tmax 98.7 - HR 98-125x' I/O - UO 1,875 - Balance 24h -250 PLAN - Nicotine patch - Start Rosuvastatin - Started GI cocktails prior to meals - Replace K and PO4 with 30mMol IV - Insulin regimen - Lantus 30u bedtime - Lispro 5u TID AC 03/30/2020 - Lab results - WBC down from 30.96 to 16.62 - Na up from 132 to 139 - K down from 3.5 to 3.1 - GFR stable - PO4 1.9 - Mg 2.2 - POC glucose 220-331 - VS trend - MAP 96-114 - HR 75-100 - Tmax 98.6 - SatO2 >95% on RA - Adjusted insulin and antihypertensives - Tolerated diet - BM today - Patient Instructions Diet: Diabetic Diet Activity: As Tolerated - Discharge Plan *PRESCRIPTION DRUG MONITORING PROGRAM REVIEWED*: Not Applicable *COPY OF PRESCRIPTION DRUG MONITORING REPORT IN PATIENT FELIPA: Not Applicable Prescriptions/Med Rec: amLODIPine Besylate [Amlodipine Besylate] 10 mg PO DAILY #30 tablet Sucralfate [Carafate] 1 gm PO TIDAC #60 cup Losartan [Cozaar] 50 mg PO DAILY #60 tablet Nicotine [Habitrol] 21 mg TRDERM Q24H #30 patch atorvaSTATin [Lipitor] 40 mg PO BEDTIME #30 tab Alum Hydrox/Mag Hydrox/Simeth [Mag-Al Plus] 30 ml PO TIDAC PRN #30 cup PRN Reason: Other Insulin NPH Human Isophane [Novolin N Flexpen] 7 unit SQ TIDAC #3 insuln.pen Treshiba 35 unit INJECT DAILY #0 Lidocaine 2% [Xylocaine 2% Viscous] 15 ml PO TIDAC PRN #30 cup PRN Reason: Other Home Medications: Home Meds Disulfiram [Antabuse] 250 mg PO DAILY 03/28/20 [History] Naltrexone Microspheres [Vivitrol] 380 mg IM ONETIME 03/28/20 [History] Venlafaxine [Effexor XR] 75 mg PO DAILY 03/28/20 [History] tadalafiL [Tadalafil] 10 mg PO DAILY PRN 03/28/20 [History] Alum Hydrox/Mag Hydrox/Simeth [Mag-Al Plus] 30 ml PO TIDAC PRN #30 cup 03/31/20 [Rx] Insulin NPH Human Isophane [Novolin N Flexpen] 7 unit SQ TIDAC #3 insuln.pen 03/31/20 [Rx] Lidocaine 2% [Xylocaine 2% Viscous] 15 ml PO TIDAC PRN #30 cup 03/31/20 [Rx] Losartan [Cozaar] 50 mg PO DAILY #60 tablet 03/31/20 [Rx] Nicotine [Habitrol] 21 mg TRDERM Q24H #30 patch 03/31/20 [Rx] Sucralfate [Carafate] 1 gm PO TIDAC #60 cup 03/31/20 [Rx] Treshiba 35 unit INJECT DAILY #0 03/31/20 [Rx] amLODIPine Besylate [Amlodipine Besylate] 10 mg PO DAILY #30 tablet 03/31/20 [Rx] atorvaSTATin [Lipitor] 40 mg PO BEDTIME #30 tab 03/31/20 [Rx] Oxygen Therapy Mode: Room Air Patient Handouts: Steps to Quit Smoking Forms: ED Department Discharge Referrals: Petra Ritter MD [Primary Care Provider] - - Discharge Summary/Plan Comment DC Time >30 min.: Yes - General Info Date of Service: 03/31/20 Subjective Update: Tolerating diet Slept OK BM yesterday - Patient Data Vitals - Most Recent: Last Vital Signs Temp 98.0 F 03/31/20 07:50 Pulse 67 03/31/20 03:00 Resp 16 03/31/20 07:50 BP 120/92 H 03/31/20 07:59 Pulse Ox 99 03/31/20 07:50 Weight - Most Recent: 65.091 kg - Exam General: Reports: Alert, Oriented, Cooperative, No Acute Distress HEENT: Reports: Pupils Equal, Pupils Reactive, EOMI, Mucous Membr. Moist/[place] Neck: Reports: Supple, Trachea Midline, No JVD, No Thyromegaly, +2 Carotid Pulse wo Bruit. Denies: Lymphadenopathy Lungs: Reports: Clear to Auscultation, Normal Respiratory Effort. Denies: Crackles, Rales, Rhonchi, Rub, Stridor, Wheezing Cardiovascular: Reports: Regular Rate, Regular Rhythm. Denies: Murmurs, Gallops, Rubs GI/Abdominal Exam: Normal Bowel Sounds, Soft, Non-Tender. No: Distended, Guarding, Rigid, Rebound Extremities: Normal Inspection, Normal Range of Motion, Non-Tender, No Pedal Edema, Normal Capillary Refill Skin: Reports: Warm, Dry, Intact Neurological: Reports: No New Focal Deficit Psy/Mental Status: Reports: Normal Affect, Normal Mood
== END 2020-03-31 09:47 | disposition home or self-care (01) | DRG 638 ==
LOC: JD.ED 06:17 → JD.ICU 09:13
PROVIDERS: ADMIT Internal Medicine; ATTEND Internal Medicine
DX: E11.10 Type 2 diabetes mellitus with ketoacidosis without coma (principal); E87.0 Hyperosmolality and hypernatremia; E87.1 Hypo-osmolality and hyponatremia; E87.3 Alkalosis; N17.9 Acute kidney failure, unspecified; Z20.828 Contact with and (suspected) exposure to other viral communicable diseases; E89.1 Postprocedural hypoinsulinemia; E11.65 Type 2 diabetes mellitus with hyperglycemia; K86.89 Other specified diseases of pancreas; D72.829 Elevated white blood cell count, unspecified; I10 Essential (primary) hypertension; F17.210 Nicotine dependence, cigarettes, uncomplicated; F32.9 Major depressive disorder, single episode, unspecified; F41.9 Anxiety disorder, unspecified; F10.10 Alcohol abuse, uncomplicated; E78.5 Hyperlipidemia, unspecified; E78.1 Pure hyperglyceridemia; E87.6 Hypokalemia; Z90.410 Acquired total absence of pancreas; Z91.19 Patient's noncompliance with other medical treatment and regimen; Z79.4 Long term (current) use of insulin; Z79.899 Other long term (current) drug therapy
CPT/HCPCS: 36415; 36600; 80048; 80053; 80061; 80307; 81001; 82009; 82570; 82803; 82947; 82962; 83036; 83605; 83735; 83930; 84100; 84156; 85025; 96360; 99222; 99231; 99232; 99239; 99285; 99285-25; A9270-GY; J1650; J1815-GY; J2405; J3475; J3490; J7030; J7040; J7042; J7050; J7120; U0002

== ENCOUNTER 2020-07-29 03:58 | Emergency (ER) | payer OTHER ==
[2020-07-29] MEDS ORDERED: Alum Hydrox/Mag Hydrox/Simeth 30 ML, Lidocaine 2% 15 ML PO STA ×2 (04:22)
--- NOTE | 2020-07-29 04:29 | EDM.PDOC ---
<Nithin Armstrong Lee Ann - Last Filed: 07/29/20 06:55> ED HPI GENERAL MEDICAL PROBLEM - General Chief Complaint: Chest Pain Stated Complaint: CHEST PAIN Time Seen by Provider: 07/29/20 04:07 Source of Information: Reports: Patient History Limitations: Reports: No Limitations - History of Present Illness INITIAL COMMENTS - FREE TEXT/NARRATIVE: Mr. Sanders is a very pleasant 50-year-old gentleman who now presents to the ED with mid-sternal chest pain, after being woken up with it around 03:00 this morning. He is unable to describe the character of the pain, but states that it is a pain, not a discomfort. It has been waxing and waning, but he has not identified any modifiers. The pain initially radiated down his left upper extremity to about the elbow, although that has since resolved. He felt slightly nauseated, although denies having associated dyspnea, diaphoresis, or sense of impending doom. He denies having felt this pain previously. He did not take any [id number] or home remedies prior to coming to the ED. The patient states that he had some palpitations yesterday, and also reports 2 days of heartburn not relieved with TUMS in addition to his usual omeprazole. Of note, the patient is a heavy smoker. No previously known coronary disease. Here in the ED, the patient's initial BP is found to be elevated at 170/122, otherwise, he is hemodynamically stable, afebrile, saturating 96% on room air. Other than 2 days of heartburn, palpitations yesterday, and this morning's chest pain with slight nausea, the patient denies having a recent fever, chills, sore throat, ear pain, nasal or sinus congestion, cough, dyspnea, chest pain, palpitations, nausea, vomiting, constipation, diarrhea, abdominal pain, urinary symptoms, recent weight gain or weight loss, recent bloody bowel movements or black bowel movements, recent joint aches, headaches, or rashes. The patient's PCP is Dr. Petra Siddiqi. He has already received an influenza vaccine this season. Chest Pain Score (Numeric/FACES): 8 - Related Data Allergies Allergy/AdvReac Type Severity Reaction Status Date / Time No Known Allergies Allergy Verified 07/29/20 04:06 Home Meds: Home Meds Disulfiram [Antabuse] 250 mg PO DAILY 03/28/20 [History] Venlafaxine [Effexor XR] 75 mg PO DAILY 03/28/20 [History] Insulin NPH Human Isophane [Novolin N Flexpen] 7 unit SQ TIDAC #3 insuln.pen 03/31/20 [Rx] Losartan [Cozaar] 50 mg PO DAILY #60 tablet 03/31/20 [Rx] atorvaSTATin [Lipitor] 40 mg PO BEDTIME #30 tab 03/31/20 [Rx] Dicyclomine [Bentyl] 20 mg PO Q6H PRN #12 tablet 07/29/20 [Rx] Past Medical History Cardiovascular History: Reports: Hypertension Gastrointestinal History: Reports: GERD, Pancreatitis Other Gastrointestinal History: 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, 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 Genitourinary History: Reports: None Musculoskeletal History: Reports: Gout Other Musculoskeletal History: patient states "episode of gout many years ago" Psychiatric History: Reports: Addiction Other Psychiatric History: alcohol abuse Endocrine/Metabolic History: Reports: Diabetes, Type II Other Endocrine/Metabolic History: since 2017 pancreas removed - Infectious Disease History Infectious Disease History: Reports: Chicken Pox - Past Surgical History Respiratory Surgical History: Reports: Thoracentesis GI Surgical History: Reports: Hernia, Inguinal Other GI Surgeries/Procedures: inguinal hernia x 2 2000, 2002 Musculoskeletal Surgical History: Reports: None Social & Family History - Family History Family Medical History: No Pertinent Family History HEENT: Reports: Glaucoma Cardiac: Reports: Bypass, [place], Pacemaker, Other (See Below) Other Cardiac Family History: stroke GI: Reports: Pancreatitis Other GI Family History: daughter had pancreas removed Endocrine/Metabolic: Reports: Diabetes, type II Other Endocrine/Metabolic Family History: diet controlled - Tobacco Use Tobacco Use Status *Q: Current Every Day Tobacco User Years of Tobacco use: 20 Packs/Tins Daily: 1 Packs/Tins Daily Comment: Down from 2 ppd - Caffeine Use Caffeine Use: Reports: None - Alcohol Use Alcohol Use History: Yes Alcohol Use Frequency: Daily - Recreational Drug Use Recreational Drug Use: No - Living Situation & Occupation Occupation: Employed ED ROS GENERAL - Review of Systems Review Of Systems: Comprehensive ROS is negative, except as noted in HPI. ED EXAM, GENERAL - Physical Exam Exam: See Below Exam Limited By: No Limitations General Appearance: Alert, No Apparent Distress, Thin Eye Exam: Bilateral Eye: EOMI, Normal Inspection Ears: Normal External Exam, Hearing Grossly Normal Nose: Normal Inspection Throat/Mouth: Normal Inspection, Normal Lips, Normal Voice, No Airway Compromise Head: Atraumatic, Normocephalic Neck: Normal Inspection, Full Range of Motion Respiratory/Chest: No Respiratory Distress, Lungs Clear, Normal Breath Sounds, No Accessory Muscle Use, Chest Non-Tender, Other (Pain NOT induced with pressing hands together with outstretched arms in front of his chest). No: Decreased Breath Sounds, Crackles, Rhonchi, Wheezing, Stridor, Prolonged Expiration Cardiovascular: Normal Peripheral Pulses, Regular Rate, Rhythm, No Edema, No Gallop, No JVD, No Murmur, No Rub Peripheral Pulses: 3+: Radial (L), Radial (R) GI/Abdominal: Normal Bowel Sounds, Soft, Non-Tender (including the epigastrium), No Organomegaly, No Distention, No Abnormal Bruit, No Mass Back Exam: Normal Inspection, Full Range of Motion, NT Extremities: Normal Inspection, Normal Range of Motion, No Pedal Edema, Normal Capillary Refill Neurological: Alert, Oriented, Normal Cognition, No Motor/Sensory Deficits Psychiatric: Normal Affect Skin Exam: Warm, Dry, Intact, Normal Color, No Rash #1 Interpretation EKG Date: 07/29/20 Time: 04:10 Rhythm: NSR Rate (Beats/Min): 82 [place]: Normal P-Wave: Enlarged (VIELKA) QRS: Normal ST-T: Normal QT: Normal Comparison: No Change (11/12/2016) Course - Re-Assessments/Exams Free Text/Narrative Re-Assessment/Exam: 07/29/20 04:23 A number of features of the patient's presentation are concerning for cardiac etiology, although the fact that the pain woke the patient from sleep is not characteristic of a cardiac etiology. His ECG at triage does not show any concerning ischemic changes. I have ordered a work-up that includes several blood tests and a portable chest x-ray. I already informed the patient that we will likely need to repeat his troponin at 7 AM. I have also ordered a swab for the SARS-CoV-2 virus in case we have to transfer him. In the meantime, the patient will be given a GI cocktail, to see if that modifies his pain at all. 07/29/20 04:51 The patient states that the GI cocktail did nothing to alter his chest pain, although he also states that it is slowly improving on its own, currently at about a "5" out of 10. I have therefore ordered a small dose of IV Dilaudid, IV Zofran, as well as some Nitropaste. 07/29/20 05:18 Portable chest radiograph is read by [facility] as "No acute findings." 07/29/20 05:21 Following a small dose of IV Dilaudid and with Nitropaste, the patient states that his chest pain is now barely perceivable. The patient's CMP is remarkable for a blood glucose elevated at 369, and AST/ALT elevated at 121/175, with an alkaline phosphatase of 151. The remainder of his CMP, along with his CBC are unremarkable. His initial troponin is undetectably low. Results of his swab for the SARS-CoV-2 virus are still pending. I have ordered a repeat troponin to be drawn at 07:00 - 4 hours after the onset of his chest pain. 07/29/20 06:55 The patient's swab for the SARS-CoV-2 virus has returned negative. Case discussed with Dr. Berumen, and care of the patient turned over to him at this time, for change of shift. Departure - Departure Disposition: Home, Self-Care 01 Clinical Impression: Non-cardiac chest pain, Esophageal spasm, Hiatal hernia with GERD and esophagitis Prescriptions: Dicyclomine [Bentyl] 20 mg PO Q6H PRN #12 tablet PRN Reason: Abdominal cramps/diarrhea Instructions: Chest Wall Pain, [id number] Referrals: Petra Ritter MD [Primary Care Provider] - Forms: ED Department Discharge, ED Return to Work/School Form Additional Instructions: Evaluation in the emergency room this morning in regards to development of retrosternal chest pain concerning for underlying heart disease. Work-up done by Dr. Armstrong feels negative cardiac enzymes x2 meaning there was no elevation of heart markers which are very specific for heart attack. Chest pain appears to be of nonheart related cause. With your history of severe reflux disease it is likely you have a small hiatal hernia which allows reflux of acid content into the lower food pipe and can cause ulceration of the junction of the food pipe with the stomach. Esophageal pain or spasm it mimics heart attack pain to a hong. Suggest increasing your omeprazole to 20 mg twice daily for the next week bedtime and morning. May use Bentyl 20 mg tablet every 6 hours as needed for discomfort especially today and tomorrow. May use Maalox as needed. Follow-up with personal care provider if symptoms can continue. You are potential candidate for fundoplication which means repair of the stomach in the opening and the diaphragm where the stomach can herniated up through and causes your reflux to cause you wake up in the night. The surgery would be difficult after having had a pancreatectomy. No other changes to medications to be made. Sepsis Event Note (ED) - Evaluation Sepsis Screening Result: No Definite Risk <Frank Berumen - Last Filed: 07/29/20 08:50> Course - Vital Signs Last Recorded V/S: Last Vital Signs Temp 36.2 C 07/29/20 04:03 Pulse 87 07/29/20 04:03 Resp 16 07/29/20 04:03 BP 170/122 H 07/29/20 04:03 Pulse Ox 96 07/29/20 04:03 - Orders/Labs/Meds Orders: Active Orders 24 hr Category Date Time Status EKG Documentation Completion [RC] STAT Care 07/29/20 04:21 Active Chest 1V Frontal [CR] Stat Exams 07/29/20 04:21 Taken Labs: Laboratory Tests 07/29/20 07/29/20 07/29/20 Range/Units 04:15 04:15 04:38 WBC 12.88 H (4.23-9.07) K/mm3 RBC 4.79 (4.63-6.08) M/mm3 Hgb 15.3 (13.7-17.5) gm/dl Hct 45.2 (40.1-51.0) % MCV 94.4 H (79.0-92.2) fl MCH 31.9 (25.7-32.2) pg MCHC 33.8 (32.2-35.5) g/dl RDW Std Deviation 44.2 H (35.1-43.9) fL Plt Count 421 H D (163-337) K/mm3 MPV 9.8 (9.4-12.3) fl Neutrophils % (Manual) 64 H (40-60) % Band Neutrophils % 1 (0-10) % Lymphocytes % (Manual) 24 (20-40) % Atypical Lymphs % 0 % Immat Monocytes % (Man) 0 Monocytes % (Manual) 8 (2-10) % Eosinophils % (Manual) 3 (0.8-7.0) % Basophils % (Manual) 0 L (0.2-1.2) Metamyelocytes % 0 Myelocytes % 0 Promyelocytes % 0 Blast Cells % 0 Plasma Cell % (Manual) 0 Nucleated RBCs 0.0 % Platelet Estimate Adequate RBC Morph Comment Normal D-Dimer, Quantitative (0.19-0.50) mg/L Sodium 133 L (136-145) mEq/L Potassium 4.0 (3.5-5.1) mEq/L Chloride 96 L (98-107) mEq/L Carbon Dioxide 27 (21-32) mEq/L Anion Gap 14.0 (5-15) BUN 18 (7-18) mg/dL Creatinine 0.9 (0.7-1.3) mg/dL Est Cr Clr Drug Dosing 99.68 mL/min Estimated GFR (MDRD) > 60 (>60) mL/min BUN/Creatinine Ratio 20.0 H (14-18) Glucose 369 H (74-106) mg/dL Hemoglobin A1c (4.50-6.20) % Calcium 9.1 (8.5-10.1) mg/dL Total Bilirubin 0.3 (0.2-1.0) mg/dL AST 121 H (15-37) U/L ALT 175 H (16-63) U/L Alkaline Phosphatase 151 H (46-116) U/L Troponin I < 0.017 (0.00-0.056) ng/mL C-Reactive Protein (<1.0) mg/dL Total Protein 6.8 (6.4-8.2) g/dl Albumin 3.5 (3.4-5.0) g/dl Globulin 3.3 gm/dL Albumin/Globulin Ratio 1.1 (1-2) Lipase (73-393) U/L SARS-CoV-2 RNA (FRANCHESCA) Negative (NEGATIVE) 07/29/20 07/29/20 07/29/20 Range/Units 07:19 07:19 07:19 WBC (4.23-9.07) K/mm3 RBC (4.63-6.08) M/mm3 Hgb (13.7-17.5) gm/dl Hct (40.1-51.0) % MCV (79.0-92.2) fl MCH (25.7-32.2) pg MCHC (32.2-35.5) g/dl RDW Std Deviation (35.1-43.9) fL Plt Count (163-337) K/mm3 MPV (9.4-12.3) fl Neutrophils % (Manual) (40-60) % Band Neutrophils % (0-10) % Lymphocytes % (Manual) (20-40) % Atypical Lymphs % % Immat Monocytes % (Man) Monocytes % (Manual) (2-10) % Eosinophils % (Manual) (0.8-7.0) % Basophils % (Manual) (0.2-1.2) Metamyelocytes % Myelocytes % Promyelocytes % Blast Cells % Plasma Cell % (Manual) Nucleated RBCs % Platelet Estimate RBC Morph Comment D-Dimer, Quantitative 0.31 (0.19-0.50) mg/L Sodium (136-145) mEq/L Potassium (3.5-5.1) mEq/L Chloride (98-107) mEq/L Carbon Dioxide (21-32) mEq/L Anion Gap (5-15) BUN (7-18) mg/dL Creatinine (0.7-1.3) mg/dL Est Cr Clr Drug Dosing mL/min Estimated GFR (MDRD) (>60) mL/min BUN/Creatinine Ratio (14-18) Glucose (74-106) mg/dL Hemoglobin A1c 10.40 H (4.50-6.20) % Calcium (8.5-10.1) mg/dL Total Bilirubin (0.2-1.0) mg/dL AST (15-37) U/L ALT (16-63) U/L Alkaline Phosphatase (46-116) U/L Troponin I < 0.017 (0.00-0.056) ng/mL C-Reactive Protein 0.4 (<1.0) mg/dL Total Protein (6.4-8.2) g/dl Albumin (3.4-5.0) g/dl Globulin gm/dL Albumin/Globulin Ratio (1-2) Lipase 146 (73-393) U/L SARS-CoV-2 RNA (FRANCHESCA) (NEGATIVE) Meds: Medications Discontinued Medications Generic Name Dose Route Start Last Admin Trade Name Jayme PRN Reason Stop Dose Admin Al Hydroxide/Mg Hydroxide 30 ml 07/29/20 08:16 07/29/20 08:21 Mag-Al Plus PO 07/29/20 08:17 30 ml ONETIME ONE Administration Al Hydroxide/Mg Hydroxide 30 0 ml 07/29/20 04:22 07/29/20 04:32 ml/ Lidocaine HCl 15 ml PO 07/29/20 04:23 45 ml ONETIME STA Administration Dicyclomine HCl 20 mg 07/29/20 08:16 07/29/20 08:21 Bentyl PO 07/29/20 08:17 20 mg ONETIME ONE Administration Hydromorphone HCl 0.5 mg 07/29/20 04:49 07/29/20 04:57 Dilaudid IVPUSH 07/29/20 04:50 0.5 mg ONETIME ONE Administration Nitroglycerin 1 gm 07/29/20 04:50 07/29/20 04:57 Nitro-Bid 2% TOP 07/29/20 04:51 1 gm ONETIME ONE Administration Ondansetron HCl 4 mg 07/29/20 04:49 07/29/20 04:57 Zofran IVPUSH 07/29/20 04:50 4 mg ONETIME ONE Administration - Re-Assessments/Exams Free Text/Narrative Re-Assessment/Exam: 07/29/20 08:17 seen and examined. He still has some discomfort in the epigastrium with no radiation of the pain anywhere. He has a strong history of gastroesophageal reflux often waking up 2 or 3 times a week with reflux of acid into his mouth and sometimes choking. He therefore is a candidate for fundoplication although there would be a great deal of scar tissue since he had a pancreatectomy. At this time we will treat him conservatively with Bentyl 20 mg every 6 hours as needed for similar type pain. Advised to increase his omeprazole to 20 mg twice daily bedtime and morning for the next week to allow allow for healing of any esophageal gastric ulcerations. Note given to excuse him from the workplace today. Departure - Departure Time of Disposition: 08:18 Reason for Transfer *Q: Other Condition: Fair Sepsis Event Note (ED) - Focused Exam Vital Signs: Vital Signs Temp Pulse Resp BP Pulse Ox 07/29/20 04:03 36.2 C 87 16 170/122 H 96
[2020-07-29] MEDS ORDERED: HYDROmorphone 0.5 MG/0.5 ML Syringe IVPUSH ONE (04:49)
[2020-07-29] MEDS ORDERED: Ondansetron 4 MG/2 ML SDV IVPUSH ONE (04:49)
[2020-07-29] MEDS ORDERED: Nitroglycerin 2% Oint 1 GM UD Packet TOP ONE (04:50)
[2020-07-29] MEDS ORDERED: Aluminum Hydroxide/Magnesium Hydroxide/Simethicone Susp 30 ML Cup PO ONE (08:16)
[2020-07-29] MEDS ORDERED: Dicyclomine 10 MG Cap PO ONE (08:16)
[2020-07-29 08:34] LABS: HEMOGLOBIN A1C 10.4 % (4.50-6.20)
[2020-07-29 08:56] VITALS: BP 134/99; PULSE 73
--- NOTE | 2020-07-29 09:21 | CR ---
PROCEDURE INFORMATION: Exam: XR Chest, 1 View Exam date and time: 07/29/2020 4:25 AM Age: 50 years old Clinical indication: Chest pain; Type not specified TECHNIQUE: Imaging protocol: XR of the chest Views: 1 view. COMPARISON: DX Chest 2V 04/20/2017 7:36 AM FINDINGS: Lungs: Unremarkable. No consolidation. Pleural space: Unremarkable. No pleural effusion. No pneumothorax. Heart/Mediastinum: Unremarkable. No cardiomegaly. Bones/joints: Unremarkable. IMPRESSION: No acute findings. Thank you for allowing us to participate in the care of your patient. Dictated and Authenticated by: Pepe Chase MD 07/29/2020 6:11 AM Central Time ([place] & [place]) EILEEN
== END 2020-07-29 09:00 | disposition home or self-care (01) ==
LOC: JD.ED 03:58
DX: K22.4 Dyskinesia of esophagus (principal); K21.00 Gastro-esophageal reflux disease with esophagitis, without bleeding; K44.9 Diaphragmatic hernia without obstruction or gangrene; I10 Essential (primary) hypertension; E11.9 Type 2 diabetes mellitus without complications; F17.210 Nicotine dependence, cigarettes, uncomplicated; Z79.4 Long term (current) use of insulin; Z79.899 Other long term (current) drug therapy
CPT/HCPCS: 36415; 71045; 80053; 83036; 83690; 84484; 85007; 85027; 85379; 86140; 87635; 93005; A9270; J1170; J2405; 93010; 96374; 96375; 99284; 99285-25; U0002

== ENCOUNTER → 2020-09-15 | Day surgery (SDC) | payer BC, OTHER ==
[~2020-09-15] MED LIST: Lactated Ringers 1,000 ML IV SCH; Lidocaine 1% 6 ML ONE; Lidocaine 1%/Sod Bicarbonate in NS 8.4% 1 ML Syringe IDERM PRN; Propofol 200 MG/20 ML SDV ONE; Sodium Chloride 0.9% 10 ML Syringe FLUSH PRN; fentaNYL 100 MCG/2 ML SDV ONE
--- NOTE | 2020-09-15 07:49 | PCM.PREANE ---
Preanesthetic Assessment - Anesthesia/Transfusion/Family Hx Anesthesia History: Prior Anesthesia Without Reaction Transfusion History: No Prior Transfusion(s) - Review of Systems General: No Symptoms Pulmonary: No Symptoms Cardiovascular: No Symptoms Gastrointestinal: No Symptoms Neurological: No Symptoms Other: Reports: Diabetes - Physical Assessment NPO Status Date: 09/14/20 NPO Status Time: 23:00 ASA Class: 2 Mental Status: Alert & Oriented x3 Airway Class: Mallampati = 2 Dentition: Reports: Normal Dentition, Missing Tooth/Teeth Thyro-Mental Finger Breadths: 3 Mouth Opening Finger Breadths: 3 ROM/Head Extension: Full Lungs: Clear to Auscultation, Normal Respiratory Effort Cardiovascular: Regular Rate, Regular Rhythm - Allergies Allergies/Adverse Reactions: Allergies Allergy/AdvReac Type Severity Reaction Status Date / Time No Known Allergies Allergy Verified 09/13/20 00:06 - Acknowledgements Anesthesia Type Planned: MAC Pt an Appropriate Candidate for the Planned Anesthesia: Yes Alternatives and Risks of Anesthesia Discussed w Pt/Guardian: Yes Pt/Guardian Understands and Agrees with Anesthesia Plan: Yes PreAnesthesia Questionnaire HEENT History: Reports: None Cardiovascular History: Reports: Hypertension Respiratory History: Reports: Other (See Below) Other Respiratory History: snoring, pneumonia, bilateral pleural effusions Gastrointestinal History: Reports: GERD, Pancreatitis Other Gastrointestinal History: 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, 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, Genitourinary History: Reports: None CLINICAL PROGRAM COORDINATOR History: Reports: None Musculoskeletal History: Reports: Gout Other Musculoskeletal History: patient states "episode of gout many years ago" Neurological History: Reports: None Psychiatric History: Reports: Addiction Other Psychiatric History: alcohol abuse Endocrine/Metabolic History: Reports: Diabetes, Type II Other Endocrine/Metabolic History: since 2017 pancreas removed Hematologic History: Reports: None Immunologic History: Reports: None Oncologic (Cancer) History: Reports: None Dermatologic History: Reports: Other (See Below) Other Dermatologic History: facial skin lesion - Infectious Disease History Infectious Disease History: Reports: Chicken Pox - Past Surgical History Head Surgeries/Procedures: Reports: None HEENT Surgical History: Reports: None Cardiovascular Surgical History: Reports: None Respiratory Surgical History: Reports: Thoracentesis GI Surgical History: Reports: EGD, ERCP, Hernia, Inguinal, Other (See Below) Other GI Surgeries/Procedures: inguinal hernia x 2 2000, 2002. laparotomy, pancreatectomy Female Surgical History: Reports: None Male Surgical History: Reports: None Neurological Surgical History: Reports: None Musculoskeletal Surgical History: Reports: None Oncologic Surgical History: Reports: None - SUBSTANCE USE Tobacco Use Status *Q: Current Every Day Tobacco User Recreational Drug Use History: No - HOME MEDS Home Medications: Home Meds Venlafaxine [Effexor XR] 75 mg PO DAILY 03/28/20 [History] atorvaSTATin [Lipitor] 40 mg PO BEDTIME #30 tab 03/31/20 [Rx] Dicyclomine [Bentyl] 20 mg PO Q6H PRN #12 tablet 07/29/20 [Rx] Insulin Degludec [Tresiba] 28 units SQ DAILY 09/13/20 [History] Insulin NPH Human Isophane [Novolin N Flexpen] 1 dose SQ TIDAC 09/13/20 [History] Losartan [Cozaar] 25 mg PO DAILY 09/13/20 [History] Ranitidine [Zantac] 150 mg PO DAILY 09/13/20 [History] - CURRENT (IN HOUSE) MEDS Current Meds: Current Medications Lactated Ringer's (Ringers, Lactated) 1,000 mls @ 125 mls/hr IV ASDIRECTED ÁNGELA Stop: 09/15/20 23:00 Lidocaine/Sodium Bicarbonate (Buffered Lidocaine 1% In Ns 8.4%) 0.25 ml IDERM ONETIME PRN PRN Reason: Prior to IV Start Stop: 09/15/20 18:00 Sodium Chloride (Saline Flush) 10 ml FLUSH ASDIRECTED PRN PRN Reason: Keep Vein Open Stop: 09/15/20 18:00
[2020-09-15 10:04] VITALS: BP 129/90; PULSE 67
--- NOTE | 2020-09-15 10:05 | PCM48HPAN ---
Post Anesthesia Note - EVALUATION WITHIN 48HRS OF ANESTHETIC Vital Signs in Normal Range: Yes Patient Participated in Evaluation: Yes Respiratory Function Stable: Yes Airway Patent: Yes Cardiovascular Function Stable: Yes Hydration Status Stable: Yes Pain Control Satisfactory: Yes Nausea and Vomiting Control Satisfactory: Yes Mental Status Recovered: Yes Vital Signs: Last Vital Signs Temp 97.4 F 09/15/20 09:35 Pulse 67 09/15/20 10:03 Resp 16 09/15/20 10:03 BP 129/90 09/15/20 10:03 Pulse Ox 96 09/15/20 10:03
--- NOTE | 2020-09-15 16:12 | PROC ---
DATE OF OPERATION: 09/15/2020 SURGEON: Yulissa Samson MD PREOPERATIVE DIAGNOSIS: Abdominal pain. POSTOPERATIVE DIAGNOSIS: Abdominal pain. OPERATION PERFORMED: 1. Esophagogastroduodenoscopy. 2. Colonoscopy. ESTIMATED BLOOD LOSS: Minimal. ANESTHESIA: Monitored anesthesia care. COMPLICATIONS: None. INDICATIONS AND CONSENT: Mr. 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 The patient started having epigastric abdominal pain and chest pain a few months ago. The patient went to the emergency department since he was worried about cardiac compromise. Workup was normal. The patient was diagnosed with possible GERD and was sent to me for evaluation. He also needs a screening colonoscopy. I saw the patient and evaluated him. I offered him EGD and colonoscopy to confirm these findings. We discussed the risks, benefits, and alternatives and informed consent was obtained. DESCRIPTION OF PROCEDURE: The patient was taken to the procedure room and placed in left lateral decubitus position. Monitored anesthesia care was induced. Time-out was performed. We began with an EGD. Scope was inserted into the mouth and taken all the way to the second portion of duodenum. Second portion of duodenum was normal. The antrum had some area of linear inflammation in the antrum. These areas were biopsied with cold forceps. The body and the cardia were normal. The patient had medium-sized about 5 cm hiatal hernia with a small portion of stomach above the crura. This is a sliding-type hernia. The GE junction was irregular indicating a degree of inflammation. Biopsies with cold forceps were taken at the GE junction as well as distal esophagus. Then, the rest of the esophagus appeared to be normal. Air was suctioned out and this part of the procedure was concluded. Then, we turned our attention to the colonoscopy. Perianal exam was normal. The scope was inserted and taken all the way to the cecum. Ileocecal valve and appendiceal orifice were photographed. Then, in the cecum, there was a 4 mm semi-pedunculated polyp. This was removed with cold forceps. EBL was minimal. Then, we started withdrawing. There was another about 4 mm polyp in the rectosigmoid colon. Attempts were made to remove this with cold forceps, but this was not possible due to the positioning of the polyp just below the fold. Therefore, the hot snare was used to remove the entirety of this polyp. EBL was minimal. There were 3 additional rectal polyps ranging from 2 mm to 4 mm. These were all removed with cold forceps and placed in a single specimen jar. EBL was minimal. On retroflexion, the patient had grade 3 hemorrhoids and also the patient had scattered small and large diverticulosis. Once the procedure was concluded, air was suctioned out and scope was removed. The patient will be allowed to return home and follow up with me in 2 weeks for further discussion of pathology. MMODAL /[id number] EILEEN
== END | disposition home or self-care (01) ==
LOC: JD.SDS 07:29
PROVIDERS: ATTEND Surgery
DX: D12.0 Benign neoplasm of cecum (principal); D12.8 Benign neoplasm of rectum; K31.89 Other diseases of stomach and duodenum; K44.9 Diaphragmatic hernia without obstruction or gangrene; I10 Essential (primary) hypertension; F17.210 Nicotine dependence, cigarettes, uncomplicated; K21.9 Gastro-esophageal reflux disease without esophagitis; E11.9 Type 2 diabetes mellitus without complications; Z79.899 Other long term (current) drug therapy; Z98.890 Other specified postprocedural states
CPT/HCPCS: 43239; 45380; 45385; J2001; J2704; J3010; J7120; 00813

== ENCOUNTER 2021-04-22 19:18 | Emergency (ER) | payer BC ==
[2021-04-22 19:30] VITALS: BP 164/114; PULSE 100
--- NOTE | 2021-04-22 19:53 | EDM.PDOC ---
ED HPI GENERAL MEDICAL PROBLEM - General Chief Complaint: Diabetic Complaint Stated Complaint: UNABLE TO EAT Time Seen by Provider: 04/22/21 19:40 Source of Information: Reports: Patient, RN Notes Reviewed History Limitations: Reports: No Limitations - History of Present Illness INITIAL COMMENTS - FREE TEXT/NARRATIVE: Patient is a 51-year-old male who presents to the ER for a diabetic complaint. Patient notes that he is a type II diabetic that is insulin dependent, and has been without his diabetic supplies for the past few days as he is left him in his truck in [facility] which is about an hour away. States that he has not had much of an appetite over the last few days and he is also not been able to eat much. He has been trying to drink Sprite to "get his blood sugar up". Again he has not been checking his blood sugars. He does have a continuous glucose monitor but has had no way to check it. He states he came to the ER today because his told him he needed to come to the ER otherwise she was calling the ambulance. He is not having any fevers or chills, cough or shortness of breath, he is having some nausea but no vomiting or diarrhea. D enying pain anywhere. States that his diabetes is "under control". - Related Data Allergies Allergy/AdvReac Type Severity Reaction Status Date / Time No Known Allergies Allergy Verified 04/22/21 19:30 Home Meds: Home Meds Venlafaxine [Effexor XR] 75 mg PO DAILY 03/28/20 [History] atorvaSTATin [Lipitor] 40 mg PO BEDTIME #30 tab 03/31/20 [Rx] Insulin Degludec [Tresiba] 28 units SQ DAILY 09/13/20 [History] Insulin NPH Human Isophane [Novolin N Flexpen] 1 dose SQ TIDAC 09/13/20 [History] Losartan [Cozaar] 25 mg PO DAILY 09/13/20 [History] Ranitidine [Zantac] 150 mg PO DAILY 09/13/20 [History] Ondansetron [Zofran ODT] 4 mg PO Q8H PRN #15 tab.dis 04/22/21 [Rx] Past Medical History Cardiovascular History: Reports: High Cholesterol, Hypertension Respiratory History: Reports: Other (See Below) Other Respiratory History: snoring, pneumonia, bilateral pleural effusions Gastrointestinal History: Reports: GERD, Pancreatitis Other Gastrointestinal History: 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, 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, Musculoskeletal History: Reports: Gout Other Musculoskeletal History: patient states "episode of gout many years ago" Psychiatric History: Reports: Addiction, Anxiety, Depression, Panic Attack Other Psychiatric History: alcohol abuse Endocrine/Metabolic History: Reports: Diabetes, Type II Other Endocrine/Metabolic History: 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 laparotomy, pancreatectomy Social & Family History - Family History Family Medical History: No Pertinent Family History HEENT: Reports: Glaucoma Cardiac: Reports: Bypass, [place], Pacemaker, Other (See Below) Other Cardiac Family History: stroke GI: Reports: Pancreatitis Other GI Family History: daughter had pancreas removed Endocrine/Metabolic: Reports: Diabetes, type II Other Endocrine/Metabolic Family History: diet controlled - Tobacco Use Tobacco Use Status *Q: Current Every Day Tobacco User Years of Tobacco use: 20 Packs/Tins Daily: 1 - Caffeine Use Caffeine Use: Reports: Coffee - Recreational Drug Use Recreational Drug Use: No - Living Situation & Occupation Occupation: Employed ED ROS GENERAL - Review of Systems Review Of Systems: Comprehensive ROS is negative, except as noted in HPI. ED EXAM GENERAL NO PERIP PULSE - Physical Exam Exam: See Below Exam Limited By: No Limitations General Appearance: Alert, WD/WN, No Apparent Distress Respiratory/Chest: No Respiratory Distress, Lungs Clear, Normal Breath Sounds, No Accessory Muscle Use, Chest Non-Tender Cardiovascular: Normal Peripheral Pulses, Regular Rate, Rhythm, No Edema GI/Abdominal: Normal Bowel Sounds, Soft, Non-Tender, No Distention, No Mass Extremities: Normal Inspection, Normal Capillary Refill Neurological: Alert, Oriented, Normal Cognition, No Motor/Sensory Deficits Psychiatric: Normal Affect, Normal Mood Skin Exam: Warm, Dry, Intact, Normal Color, No Rash Course - Vital Signs Last Recorded V/S: Last Vital Signs Temp 98.4 F 04/22/21 19:26 Pulse 100 04/22/21 19:26 Resp 16 04/22/21 19:26 BP 164/114 H 04/22/21 19:26 Pulse Ox 95 04/22/21 19:26 - Orders/Labs/Meds Labs: Laboratory Tests 04/22/21 Range/Units 19:38 POC Glucose 306 H (70-99) mg/dL - Re-Assessments/Exams Free Text/Narrative Re-Assessment/Exam: 04/22/21 19:56 Patient presents to the ER for the evaluation of his diabetic issues. His blood sugar was found to be 306. I did offer to start IV fluids, and check some labs, but he declined all modalities in the hospital. I did offer to send a prescription for Zofran, for ongoing nausea management, and he did accept this at this time. I did explain to him, that it is not smart for him to have a blood sugar that high, but he states he will go get his supplies, and manage his diabetes better. I will have him follow-up with his regular care provider at his next appointment as needed. Departure - Departure Time of Disposition: 19:50 Disposition: Home, Self-Care 01 Condition: Good Clinical Impression: Elevated blood sugar level, Unable to eat - Discharge Information *PRESCRIPTION DRUG MONITORING PROGRAM REVIEWED*: No *COPY OF PRESCRIPTION DRUG MONITORING REPORT IN PATIENT FELIPA: No Prescriptions: Ondansetron [Zofran ODT] 4 mg PO Q8H PRN #15 tab.dis PRN Reason: Nausea Instructions: Hyperglycemia, [id number] Referrals: Petra Ritter MD [Primary Care Provider] - Forms: ED Department Discharge Additional Instructions: You were evaluated in this ER for your diabetic issues, and being unable to eat. Your bedside glucose was found to be over 300, but you refused any sort of IV fluids, or laboratory evaluation at today's visit. I have however sent a prescription for oral Zofran, for ongoing nausea management, that you may brick picker at the [place] pharmacy located in the [employer] [facility]. Please pick this up tonight and take as directed for ongoing nausea. Strongly and highly recommend you obtain your diabetic supplies, from your truck in [place], to better manage your diabetes. Follow-up with your regular care provider at your next scheduled appointment. As always do not hesitate to return to the ER at any time if symptoms change or worsen. Sepsis Event Note (ED) - Evaluation Sepsis Screening Result: No Definite Risk - Focused Exam Vital Signs: Vital Signs Temp Pulse Resp BP Pulse Ox 04/22/21 19:26 98.4 F 100 16 164/114 H 95
== END 2021-04-22 20:09 | disposition home or self-care (01) ==
LOC: JD.ED 19:18
DX: E11.65 Type 2 diabetes mellitus with hyperglycemia (principal); R63.3 Feeding difficulties; E78.00 Pure hypercholesterolemia, unspecified; I10 Essential (primary) hypertension; Z79.4 Long term (current) use of insulin; Z72.0 Tobacco use; Z79.899 Other long term (current) drug therapy
CPT/HCPCS: 82947; 99283; 99284

== ENCOUNTER 2021-10-24 14:37 | Emergency (ER) | payer BC ==
[2021-10-24] MEDS ORDERED: HYDROmorphone 1 MG/ML Syringe IVPUSH ONE (15:02)
[2021-10-24] MEDS ORDERED: Sodium Chloride 0.9% 10 ML Syringe FLUSH PRN (15:02)
[2021-10-24] MEDS ORDERED: Ondansetron 4 MG/2 ML SDV IVPUSH ONE (15:02)
[2021-10-24] MEDS ORDERED: Lidocaine 1% 10 ML MDV ONE (15:28)
[2021-10-24] MEDS ORDERED: Lidocaine 1% 10 ML MDV INJECT ONE (15:29)
[2021-10-24 16:39] VITALS: BP 128/65; PULSE 85
== END 2021-10-24 16:30 | disposition home or self-care (01) ==
LOC: JD.ED 14:37
DX: L03.317 Cellulitis of buttock (principal); L02.31 Cutaneous abscess of buttock; K61.1 Rectal abscess; E78.00 Pure hypercholesterolemia, unspecified; I10 Essential (primary) hypertension; E11.9 Type 2 diabetes mellitus without complications; Z79.4 Long term (current) use of insulin; Z72.0 Tobacco use
CPT/HCPCS: 36415; 80053; 82947; 85025; 86140; 87040; 96374; 96375; 99283; J1170; J2405; 99285

== ENCOUNTER 2021-10-27 08:53 | Observation (INO) | payer BC ==
[2021-10-27] MEDS ORDERED: HYDROmorphone 0.5 MG/0.5 ML Syringe IVPUSH ONE ×2 (09:25→11:14)
[2021-10-27] MEDS ORDERED: Metoclopramide 10 MG/2 ML SDV IVPUSH ONE (09:25)
[2021-10-27] MEDS ORDERED: Sodium Chloride 0.9% 1,000 ML IV SCH ×2 (09:30→16:30)
[2021-10-27] MEDS ORDERED: Cefepime 2 GM in Sodium Chloride 0.9% 50 ML IV ONE (09:55)
[2021-10-27 10:44] LABS: CORONAVIRUS COVID-19 NAA NEGATIVE (NEGATIVE)
[2021-10-27] MEDS ORDERED: Iopamidol 612 MG/ML 100 ML Bottle IVPUSH ONE (11:26)
[2021-10-27] MEDS ORDERED: Sodium Chloride 0.9% 10 ML Syringe FLUSH PRN (11:26)
[2021-10-27] MEDS ORDERED: Lactated Ringers 1,000 ML IV SCH (11:30)
[2021-10-27] MEDS: Potassium Chloride 10 MEQ in Premix Bag 1 BAG IV SCH ×2 (12:52→15:22)
[2021-10-27] MEDS: Magnesium Sulfate/Water 2 GM in Premix Bag 1 BAG IV SCH ×3 (12:52→16:15)
[2021-10-27] MEDS ORDERED: Propofol 200 MG/20 ML SDV ONE (13:04)
[2021-10-27] MEDS ORDERED: Lidocaine 1% 4 ML ONE (13:04)
[2021-10-27] MEDS ORDERED: fentaNYL 100 MCG/2 ML SDV ONE (13:04)
[2021-10-27] MEDS ORDERED: Midazolam 1 MG/ML 2 ML SDV ONE ×2 (13:05→13:41)
[2021-10-27] MEDS ORDERED: Lidocaine 1% 2 ML ONE (13:08)
[2021-10-27] MEDS ORDERED: Lidocaine 1% with EPINEPHrine 1:100,000 10 ML MDV ONE (13:23)
[2021-10-27] MEDS ORDERED: Lactated Ringers 1,000 ML ONE (13:56)
[2021-10-27] MEDS ORDERED: Ondansetron 4 MG/2 ML SDV ONE (14:07)
[2021-10-27] MEDS ORDERED: Potassium Chloride 10 MEQ in Premix Bag 1 BAG IV ONE (14:23)
[2021-10-27] MEDS ORDERED: Docusate Sodium 100 MG Cap PO PRN (14:38)
[2021-10-27] MEDS ORDERED: Acetaminophen 325 MG Tab PO PRN (14:38)
[2021-10-27] MEDS: Lactated Ringers 1,000 ML IV SCH (16:32)
[2021-10-27] MEDS: oxyCODONE 5 MG Tab PO PRN ×2 (18:13→23:32)
[2021-10-27] MEDS ORDERED: Magnesium Sulfate/Water 4 GM in Premix Bag 1 BAG IV ONE (19:27)
[2021-10-27] MEDS ORDERED: Amoxicillin/Clavulanate K 875-125 MG Tab PO SCH (21:00)
[2021-10-28] MEDS: Lactated Ringers 1,000 ML IV SCH (00:54)
[2021-10-28] MEDS: oxyCODONE 5 MG Tab PO PRN (04:13)
[2021-10-28 08:49] VITALS: BP 139/73; PULSE 64
[2021-10-28] MEDS ORDERED: Pantoprazole 40 MG Tab.CR PO SCH (09:00)
[2021-10-28] MEDS ORDERED: INSULIN ASPART 100 UNIT/ML SCH (09:00)
[2021-10-28] MEDS ORDERED: INSULIN PUMP SCH (09:00)
== END 2021-10-28 09:15 | disposition home or self-care (01) ==
LOC: JD.ED 08:53 → JD.SDS 12:48 → JD.MS 14:39
PROVIDERS: ADMIT Surgery; ATTEND Surgery
DX: K64.1 Second degree hemorrhoids (principal); F17.210 Nicotine dependence, cigarettes, uncomplicated; E11.9 Type 2 diabetes mellitus without complications; E78.00 Pure hypercholesterolemia, unspecified; I10 Essential (primary) hypertension; F41.9 Anxiety disorder, unspecified; F32.A Depression, unspecified; Z98.890 Other specified postprocedural states; Z01.812 Encounter for preprocedural laboratory examination; Z79.4 Long term (current) use of insulin; Z90.410 Acquired total absence of pancreas; Z20.822 Contact with and (suspected) exposure to COVID-19
CPT/HCPCS: 0240U; 36415; 46050; 71045; 72193; 80048; 80053; 80307; 81001; 82009; 83605; 83735; 84132; 85007; 85027; 85610; 85730; 86140; 87070; 87075; 87205; 93005; 96365; 96366; 96367; 96375; 96376; 99285; A9270; G0378; J0692; J1170; J2250; J2405; J2704; J2765; J3010; J3475; J3480; J7030; J7120; Q9967; 00902; 93010; 99140

== ENCOUNTER 2024-03-06 03:15 | Emergency (ER) | payer OTHER ==
[2024-03-06 03:22] VITALS: BP 132/77; PULSE 88
[2024-03-06] MEDS: Amoxicillin/Clavulanate K 875-125 MG Tab PO ONE (03:49)
== END 2024-03-06 03:49 | disposition home or self-care (01) ==
LOC: JD.ED 03:15
DX: L03.012 Cellulitis of left finger (principal); I10 Essential (primary) hypertension; K21.9 Gastro-esophageal reflux disease without esophagitis; E10.9 Type 1 diabetes mellitus without complications; Z79.899 Other long term (current) drug therapy
CPT/HCPCS: 99283; A9270-GY

== ENCOUNTER 2024-03-17 14:20 | Inpatient (IN) | payer OTHER ==
[2024-03-17] MEDS: Ondansetron 4 MG/2 ML SDV IVPUSH ONE (15:12)
[2024-03-17] MEDS: Sodium Chloride 0.9% 10 ML Syringe FLUSH PRN (15:14)
[2024-03-17] MEDS: Lactated Ringers 1,000 ML IV SCH ×2 (15:17→18:42)
[2024-03-17 15:25] LABS: BASOPHILS PERCENT AUTO 0.2 % (0.0-1.0); EOSINOPHILS PERCENT AUTO 0.1 % (0.0-6.0); HEMATOCRIT 47.2 % (42.0-52.0); HEMOGLOBIN 16.8 gm/dl (14.0-18.0); IMMATURE GRAN ABSOLUTE AUTO 0.06 K/mm3 (0.00-0.05); IMMATURE GRAN PERCENT AUTO 0.3 % (0.0-0.4); LYMPHOCYTES PERCENT AUTO 4.9 % (24.0-44.0); MEAN CORPUSCULAR HEMOGLOBIN 34.8 pg (28.0-32.0); MEAN CORPUSCULAR HGB CONC 35.6 g/dl (32.0-36.0); MEAN CORPUSCULAR VOLUME 97.7 fl (83.0-99.0); MEAN PLATELET VOLUME 9.9 fl (9.4-12.4); MONOCYTES ABSOLUTE AUTO 0.8 K/mm3 (0.0-0.8); MONOCYTES PERCENT AUTO 4.3 % (0.0-8.0); NEUTROPHILS ABSOLUTE AUTO 17.7 K/mm3 (1.8-7.7); NEUTROPHILS PERCENT AUTO 90.2 % (41.0-71.0); PLATELET COUNT,PLT 472 K/mm3 (150-400); RED BLOOD CELL COUNT 4.83 M/mm3 (4.52-5.90); WHITE BLOOD CELL COUNT,WBC 19.63 K/mm3 (3.9-11.3)
[2024-03-17 15:52] LABS: LACTIC ACID 2.1 mmol/L (0.4-2.0)
[2024-03-17 15:55] LABS: A/G RATIO 0.9 (1-2); ALBUMIN 4.3 g/dl (3.4-5.0); ANION GAP 11.9 (5-15); BILIRUBIN TOTAL 0.8 mg/dL (0.2-1.0); BUN/CREATININE RATIO 23.7 (14-18); C-REACTIVE PROTEIN 0.94 mg/dL (<0.30); CREATININE 1.9 mg/dL (0.7-1.3); EST CRCL DRUG DOSING (CG) 32.12 mL/min; MAGNESIUM 1.5 mg/dL (1.8-2.4); POTASSIUM,K 3.9 mEq/L (3.5-5.1); PROTEIN TOTAL,TP 8.9 g/dl (6.4-8.2)
[2024-03-17 16:00] LABS: SLIDE REVIEW ABNORMAL SMEAR
[2024-03-17 16:05] LABS: CALCIUM 15.4 mg/dL (8.5-10.1)
[2024-03-17] MEDS: Sodium Chloride 0.9% 1,000 ML IV ONE (16:17)
[2024-03-17] MEDS: cefTRIAXone 2 GM in Sodium Chloride 0.9% 100 ML IV ONE (16:35)
[2024-03-17] MEDS ORDERED: Naloxone 0.4 MG/ML SDV IVPUSH PRN (17:46)
[2024-03-17] MEDS ORDERED: Acetaminophen 325 MG Tab PO PRN (17:46)
[2024-03-17] MEDS: Calcitonin (Salmon) 200 Units/ML 2 ML MDV SUBCUT ONE (17:48)
[2024-03-17] MEDS ORDERED: Magnesium Sulfate (4.06 MEQ/ML) 5 GM/10 ML SDV IV ONE (18:00)
[2024-03-17] MEDS ORDERED: Ondansetron 4 MG/2 ML SDV IVPUSH PRN (18:38)
[2024-03-17] MEDS: Morphine 2 MG/ML SYRINGE IVPUSH PRN (18:47)
[2024-03-17 19:19] LABS: APPEARANCE,URINE CLEAR (Clear); BILIRUBIN,URINE NEGATIVE (Negative); COLOR,URINE YELLOW (Yellow); GLUCOSE,URINE TRACE (Negative); KETONES,URINE NEGATIVE (Negative); LEUKOCYTE ESTERASE,URINE NEGATIVE (Negative); NITRITE,URINE NEGATIVE (Negative); OCCULT BLOOD,URINE TRACE-INTACT (Negative); PROTEIN,URINE 1+ (Negative); UROBILINOGEN,URINE 0.2 (0.2-1.0)
[2024-03-17 19:40] LABS: BACTERIA,URINE FEW /hpf (FEW); MUCUS,URINE FEW /hpf (FEW); RBC,URINE 20-30 /hpf (0-5); SQUAMOUS EPITHELIAL CELLS,UR 0-5 /hpf (0-5); WBC CLUMPS,URINE FEW /hpf (NOT SEEN); WBC,URINE 20-30 /hpf (0-5)
[2024-03-17 19:44] LABS: CORONAVIRUS COVID-19 NAA NEGATIVE (NEGATIVE); INFLUENZA A NAA NEGATIVE (NEGATIVE); RESPIRATORY SYNCYTIAL VIR NAA NEGATIVE (NEGATIVE)
[2024-03-17] MEDS: Apixaban 5 MG Tab PO SCH (21:06)
[2024-03-17] MEDS: Magnesium Sulfate/Water 2 GM in Premix Bag 1 BAG IV ONE (21:07)
[2024-03-17] MEDS: Iopamidol 612 MG/ML 100 ML Bottle IVPUSH ONE (21:07)
[2024-03-17] MEDS ORDERED: Labetalol 100 MG/20 ML MDV IVPUSH PRN ×2 (21:14→21:23)
[2024-03-17] MEDS: amLODIPine 5 MG Tab PO SCH (21:20)
[2024-03-17] MEDS: Melatonin 3 MG Tab PO PRN (21:29)
[2024-03-17 22:29] LABS: ANION GAP 9.5 (5-15); BUN/CREATININE RATIO 26.9 (14-18); CALCIUM 12.8 mg/dL (8.5-10.1); CREATININE 1.3 mg/dL (0.7-1.3); EST CRCL DRUG DOSING (CG) 48.81 mL/min; POTASSIUM,K 3.5 mEq/L (3.5-5.1)
[2024-03-17] MEDS: Insulin Lispro 100 Unit/ML 3 ML KwikPen SUBCUT SCH (22:52)
[2024-03-18 05:35] LABS: BASOPHILS ABSOLUTE AUTO 0.1 K/mm3 (0.0-0.2); BASOPHILS PERCENT AUTO 0.3 % (0.0-1.0); EOSINOPHILS ABSOLUTE AUTO 0.1 K/mm3 (0.0-0.4); EOSINOPHILS PERCENT AUTO 0.6 % (0.0-6.0); HEMATOCRIT 40.8 % (42.0-52.0); IMMATURE GRAN ABSOLUTE AUTO 0.08 K/mm3 (0.00-0.05); IMMATURE GRAN PERCENT AUTO 0.4 % (0.0-0.4); LYMPHOCYTES ABSOLUTE AUTO 1.6 K/mm3 (1.0-4.8); LYMPHOCYTES PERCENT AUTO 8.1 % (24.0-44.0); MEAN CORPUSCULAR HEMOGLOBIN 34.9 pg (28.0-32.0); MEAN CORPUSCULAR VOLUME 99.5 fl (83.0-99.0); MONOCYTES ABSOLUTE AUTO 1.5 K/mm3 (0.0-0.8); MONOCYTES PERCENT AUTO 7.8 % (0.0-8.0); NEUTROPHILS PERCENT AUTO 82.8 % (41.0-71.0); WHITE BLOOD CELL COUNT,WBC 19.34 K/mm3 (3.9-11.3)
[2024-03-18 05:48] LABS: ALBUMIN 3.5 g/dl (3.4-5.0); ANION GAP 8.4 (5-15); BILIRUBIN TOTAL 0.6 mg/dL (0.2-1.0); BUN/CREATININE RATIO 23.8 (14-18); CALCIUM 12.1 mg/dL (8.5-10.1); CREATININE 1.3 mg/dL (0.7-1.3); EST CRCL DRUG DOSING (CG) 48.85 mL/min; POTASSIUM,K 3.4 mEq/L (3.5-5.1); PROTEIN TOTAL,TP 6.9 g/dl (6.4-8.2)
[2024-03-18 05:49] LABS: HEMOGLOBIN 14.3 gm/dl (14.0-18.0); PLATELET COUNT,PLT 378 K/mm3 (150-400)
[2024-03-18] MEDS: Pantoprazole 40 MG Vial IVPUSH SCH (09:10)
[2024-03-18] MEDS: Calcitonin (Salmon) 200 Units/ML 2 ML MDV SUBCUT ONE (09:11)
[2024-03-18 13:29] LABS: ANION GAP 9.2 (5-15); BUN/CREATININE RATIO 23.6 (14-18); CALCIUM 11.2 mg/dL (8.5-10.1); CREATININE 1.1 mg/dL (0.7-1.3); EST CRCL DRUG DOSING (CG) 57.74 mL/min; POTASSIUM,K 3.2 mEq/L (3.5-5.1)
[2024-03-18] MEDS: Potassium Chloride 20 MEQ Tab.ER PO ONE (14:17)
[2024-03-18] MEDS: cefTRIAXone 2 GM in Sodium Chloride 0.9% 100 ML IV SCH (14:18)
[2024-03-18] MEDS ORDERED: Calcitonin (Salmon) 200 Units/ML 2 ML MDV SUBCUT ONE (16:15)
[2024-03-18] MEDS: Insulin Lispro 100 Unit/ML 3 ML KwikPen SUBCUT SCH (16:53)
[2024-03-18] MEDS: Lactated Ringers 1,000 ML IV SCH (17:19)
[2024-03-18] MEDS: Calcium Carbonate 500 MG Tab.Chew PO PRN (17:57)
[2024-03-19 05:43] LABS: BASOPHILS ABSOLUTE AUTO 0.1 K/mm3 (0.0-0.2); BASOPHILS PERCENT AUTO 0.5 % (0.0-1.0); EOSINOPHILS ABSOLUTE AUTO 0.2 K/mm3 (0.0-0.4); EOSINOPHILS PERCENT AUTO 1.2 % (0.0-6.0); HEMATOCRIT 38.9 % (42.0-52.0); HEMOGLOBIN 13.3 gm/dl (14.0-18.0); IMMATURE GRAN ABSOLUTE AUTO 0.04 K/mm3 (0.00-0.05); IMMATURE GRAN PERCENT AUTO 0.3 % (0.0-0.4); LYMPHOCYTES ABSOLUTE AUTO 1.7 K/mm3 (1.0-4.8); LYMPHOCYTES PERCENT AUTO 12.8 % (24.0-44.0); MEAN CORPUSCULAR HEMOGLOBIN 34.7 pg (28.0-32.0); MEAN CORPUSCULAR HGB CONC 34.2 g/dl (32.0-36.0); MEAN CORPUSCULAR VOLUME 101.6 fl (83.0-99.0); MEAN PLATELET VOLUME 10.1 fl (9.4-12.4); MONOCYTES ABSOLUTE AUTO 1.3 K/mm3 (0.0-0.8); MONOCYTES PERCENT AUTO 9.6 % (0.0-8.0); NEUTROPHILS PERCENT AUTO 75.6 % (41.0-71.0); PLATELET COUNT,PLT 330 K/mm3 (150-400); RED BLOOD CELL COUNT 3.83 M/mm3 (4.52-5.90); WHITE BLOOD CELL COUNT,WBC 13.16 K/mm3 (3.9-11.3)
[2024-03-19 05:58] LABS: ALBUMIN 3.2 g/dl (3.4-5.0); ANION GAP 12.5 (5-15); BILIRUBIN TOTAL 0.7 mg/dL (0.2-1.0); CALCIUM 10.4 mg/dL (8.5-10.1); EST CRCL DRUG DOSING (CG) 63.03 mL/min; POTASSIUM,K 3.5 mEq/L (3.5-5.1); PROTEIN TOTAL,TP 6.4 g/dl (6.4-8.2)
[2024-03-19 06:06] LABS: SLIDE REVIEW ABNORMAL SMEAR
[2024-03-19] MEDS: Losartan 25 MG Tab PO SCH (08:44)
[2024-03-19] MEDS: Potassium Chloride 20 MEQ Tab.ER PO SCH (09:34)
[2024-03-19] MEDS: Pantoprazole 40 MG Tab.CR PO SCH (09:43)
[2024-03-19] MEDS: CREON 24000 UNIT PO SCH (14:04)
[2024-03-19] MEDS: CREON 24000 UNIT PO PRN (14:23)
[2024-03-19] MEDS: Nicotine 7 MG/24 Hr Patch TRDERM SCH (15:09)
[2024-03-19] MEDS ORDERED: Non-Formulary Medication 1 Each (Amylase/Lipase/Protease [Creon Dr 24,000 Unit] 1 CAP Cap. PO SCH (17:00)
[2024-03-19] MEDS: Rivaroxaban 10 MG Tab PO SCH (17:19)
[2024-03-19] MEDS: atorvaSTATin 20 MG Tab PO SCH (20:32)
[2024-03-19] MEDS: oxyCODONE 5 MG Tab PO PRN (21:36)
[2024-03-20 04:39] LABS: BASOPHILS ABSOLUTE AUTO 0.1 K/mm3 (0.0-0.2); BASOPHILS PERCENT AUTO 0.6 % (0.0-1.0); EOSINOPHILS ABSOLUTE AUTO 0.3 K/mm3 (0.0-0.4); EOSINOPHILS PERCENT AUTO 2.2 % (0.0-6.0); HEMATOCRIT 39.6 % (42.0-52.0); HEMOGLOBIN 13.6 gm/dl (14.0-18.0); IMMATURE GRAN ABSOLUTE AUTO 0.04 K/mm3 (0.00-0.05); IMMATURE GRAN PERCENT AUTO 0.3 % (0.0-0.4); LYMPHOCYTES ABSOLUTE AUTO 1.9 K/mm3 (1.0-4.8); LYMPHOCYTES PERCENT AUTO 16.6 % (24.0-44.0); MEAN CORPUSCULAR HEMOGLOBIN 33.9 pg (28.0-32.0); MEAN CORPUSCULAR HGB CONC 34.3 g/dl (32.0-36.0); MEAN CORPUSCULAR VOLUME 98.8 fl (83.0-99.0); MEAN PLATELET VOLUME 10.1 fl (9.4-12.4); MONOCYTES ABSOLUTE AUTO 1.3 K/mm3 (0.0-0.8); NEUTROPHILS PERCENT AUTO 69.3 % (41.0-71.0); PLATELET COUNT,PLT 305 K/mm3 (150-400); RED BLOOD CELL COUNT 4.01 M/mm3 (4.52-5.90); WHITE BLOOD CELL COUNT,WBC 11.59 K/mm3 (3.9-11.3)
[2024-03-20 05:04] LABS: A/G RATIO 0.9 (1-2); ALBUMIN 3.1 g/dl (3.4-5.0); ANION GAP 12.8 (5-15); BILIRUBIN TOTAL 0.7 mg/dL (0.2-1.0); BUN/CREATININE RATIO 13.8 (14-18); CALCIUM 10.2 mg/dL (8.5-10.1); CREATININE 0.8 mg/dL (0.7-1.3); EST CRCL DRUG DOSING (CG) 77.98 mL/min; POTASSIUM,K 3.8 mEq/L (3.5-5.1); PROTEIN TOTAL,TP 6.6 g/dl (6.4-8.2)
[2024-03-20 07:53] VITALS: BP 122/91; PULSE 97
[2024-03-20] MEDS: Amitriptyline 25 MG Tab PO SCH (08:19)
[2024-03-20 15:55] LABS: INTACT PTH 11 pg/mL (15-65)
== END 2024-03-20 11:05 | disposition home or self-care (01) | DRG 871 ==
LOC: JD.ED 14:20 → JD.MS 17:19
PROVIDERS: ADMIT Family Medicine; ATTEND Internal Medicine
DX: A41.9 Sepsis, unspecified organism (principal); K85.21 Alcohol induced acute pancreatitis with uninfected necrosis; K86.3 Pseudocyst of pancreas; N30.01 Acute cystitis with hematuria; R64 Cachexia; Z68.1 Body mass index [BMI] 19.9 or less, adult; R65.20 Severe sepsis without septic shock; I10 Essential (primary) hypertension; E78.00 Pure hypercholesterolemia, unspecified; F41.0 Panic disorder [episodic paroxysmal anxiety]; F32.A Depression, unspecified; E83.52 Hypercalcemia; E11.69 Type 2 diabetes mellitus with other specified complication; E83.51 Hypocalcemia; R91.1 Solitary pulmonary nodule; K21.9 Gastro-esophageal reflux disease without esophagitis; F17.210 Nicotine dependence, cigarettes, uncomplicated; Z79.4 Long term (current) use of insulin; Z79.01 Long term (current) use of anticoagulants; Z86.718 Personal history of other venous thrombosis and embolism; Z98.890 Other specified postprocedural states; Z79.899 Other long term (current) drug therapy
CPT/HCPCS: 0241U; 36415; 71260; 71260-26; 74177; 74177-26; 80048; 80053; 80061; 81001; 82947; 83036; 83605; 83690; 83735; 83970; 84484; 85014; 85025; 86140; 87040; 93005; 93010; 94760; 96361; 96365; 96375; 99285; 99285-25; A9270-GY; J0630; J0696; J1815; J1921; J2270; J2405; J2470; J3475; J3490; J7030; J7120; Q9967

== ENCOUNTER 2024-06-06 17:08 | Emergency (ER) | payer OTHER ==
[2024-06-06] MEDS ORDERED: Lactated Ringers 1,000 ML IV SCH (19:45)
[2024-06-06] MEDS: Magnesium Sulfate/Water Premix 4 GM in Premix Bag 1 BAG IV ONE (20:30)
[2024-06-06] MEDS: Potassium Chloride 10 MEQ in Premix Bag 1 BAG IV SCH (20:32)
[2024-06-06 20:35] LABS: ALBUMIN 3.5 g/dl (3.4-5.0); ANION GAP 10.6 (5-15); BILIRUBIN TOTAL 1.2 mg/dL (0.2-1.0); C-REACTIVE PROTEIN 1.51 mg/dL (<0.30); EST CRCL DRUG DOSING (CG) 53.55 mL/min; POTASSIUM,K 2.6 mEq/L (3.5-5.1)
[2024-06-06 20:46] LABS: CALCIUM 13.5 mg/dL (8.5-10.1)
[2024-06-06] MEDS: diphenhydrAMINE 50 MG/ML SDV IVPUSH ONE (23:16)
[2024-06-06] MEDS: Metoclopramide 10 MG/2 ML SDV IVPUSH ONE (23:16)
[2024-06-07] MEDS ORDERED: Magnesium Oxide 400 MG Tab PO ONE (00:50)
[2024-06-07 02:33] VITALS: BP 136/101; PULSE 96
[2024-06-08 08:47] LABS: IONIZED CA@PH7.4 1.73 mmol/L (1.09-1.30); IONIZED CALCIUM 1.59 mmol/L (1.09-1.30)
[2024-06-09 04:46] LABS: CALCIUM 13.4 mg/dL (8.6-10.0)
== END 2024-06-07 00:46 | disposition home or self-care (01) ==
LOC: JD.ED 17:08
DX: E87.1 Hypo-osmolality and hyponatremia (principal); E87.6 Hypokalemia; G63 Polyneuropathy in diseases classified elsewhere; E83.42 Hypomagnesemia; K86.89 Other specified diseases of pancreas; I10 Essential (primary) hypertension; E78.00 Pure hypercholesterolemia, unspecified; K21.9 Gastro-esophageal reflux disease without esophagitis; E11.9 Type 2 diabetes mellitus without complications; Z79.4 Long term (current) use of insulin; Z79.899 Other long term (current) drug therapy
CPT/HCPCS: 36415; 80053; 82310; 82330; 83735; 83970; 86140; 96365; 96366; 96375; 99284-25; J1200; J2765; J3475; J3480

== ENCOUNTER 2024-08-12 13:12 | Inpatient (IN) | payer OTHER ==
[2024-08-12] MEDS ORDERED: Sodium Chloride 0.9% 10 ML Syringe FLUSH PRN ×2 (13:31)
[2024-08-12 13:48] LABS: BASOPHILS PERCENT AUTO 0.1 % (0.0-1.0); EOSINOPHILS PERCENT AUTO 0.1 % (0.0-6.0); HEMATOCRIT 34.4 % (42.0-52.0); HEMOGLOBIN 12.2 gm/dl (14.0-18.0); IMMATURE GRAN ABSOLUTE AUTO 0.07 K/mm3 (0.00-0.05); IMMATURE GRAN PERCENT AUTO 0.5 % (0.0-0.4); LYMPHOCYTES ABSOLUTE AUTO 0.9 K/mm3 (1.0-4.8); LYMPHOCYTES PERCENT AUTO 6.6 % (24.0-44.0); MEAN CORPUSCULAR HEMOGLOBIN 34.2 pg (28.0-32.0); MEAN CORPUSCULAR HGB CONC 35.5 g/dl (32.0-36.0); MEAN CORPUSCULAR VOLUME 96.4 fl (83.0-99.0); MEAN PLATELET VOLUME 10.2 fl (9.4-12.4); MONOCYTES ABSOLUTE AUTO 1.1 K/mm3 (0.0-0.8); NEUTROPHILS ABSOLUTE AUTO 11.4 K/mm3 (1.8-7.7); NEUTROPHILS PERCENT AUTO 84.7 % (41.0-71.0); PLATELET COUNT,PLT 273 K/mm3 (150-400); RED BLOOD CELL COUNT 3.57 M/mm3 (4.52-5.90); WHITE BLOOD CELL COUNT,WBC 13.51 K/mm3 (3.9-11.3)
[2024-08-12] MEDS: Sodium Chloride 0.9% 1,000 ML IV SCH (14:16)
[2024-08-12 14:28] LABS: A/G RATIO 0.6 (1-2); ALANINE AMINOTRANSFERASE,ALT 23 U/L (16-63); ALBUMIN 2.9 g/dl (3.4-5.0); ALKALINE PHOSPHATASE 127 U/L (46-116); ANION GAP 20.8 (5-15); ASPARTATE AMNIOTRANSFERASE,AST 30 U/L (15-37); BILIRUBIN TOTAL 0.7 mg/dL (0.2-1.0); BLOOD UREA NITROGEN,BUN 42 mg/dL (7-18); BUN/CREATININE RATIO 32.3 (14-18); CALCIUM 9.4 mg/dL (8.5-10.1); CARBON DIOXIDE,CO2 26 mEq/L (21-32); CHLORIDE,CL 77 mEq/L (98-107); CREATININE 1.3 mg/dL (0.7-1.3); ESTIMATED GFR 65 mL/min (>60); GLUCOSE RANDOM 395 mg/dL (70-99); PROTEIN TOTAL,TP 7.4 g/dl (6.4-8.2); SODIUM,NA 120 mEq/L (136-145); TROPONIN I HIGH SENSITIVITY 7 pg/mL (<=76)
[2024-08-12 14:30] LABS: POTASSIUM,K 3.8 mEq/L (3.5-5.1)
[2024-08-12 14:47] LABS: PROTHROMBIN TIME 9.6 SECONDS (9.7-12.0)
[2024-08-12 15:02] LABS: INR < 0.93
[2024-08-12 15:03] LABS: D-DIMER QUANTITATIVE 3.36 mg/L (0.19-0.50)
[2024-08-12] MEDS ORDERED: Insulin Regular, Human 100 Units/ML 3 ML Vial SUBCUT ONE (15:21)
[2024-08-12] MEDS: Insulin Regular, Human 100 Units/ML 10 ML Vial ONE (15:55)
[2024-08-12] MEDS: HYDROmorphone 1 MG/ML Syringe IVPUSH ONE (15:56)
[2024-08-12] MEDS: Insulin Regular, Human 100 Units/ML 10 ML Vial SUBCUT ONE (15:57)
[2024-08-12] MEDS: Iopamidol 755 Mg/ML 100 ML Bottle IVPUSH ONE (16:28)
[2024-08-12] MEDS ORDERED: Sodium Chloride 0.9% 100 ML IV SCH (16:30)
[2024-08-12 18:32] LABS: ANION GAP 12.1 (5-15); BLOOD UREA NITROGEN,BUN 39 mg/dL (7-18); CALCIUM 8.6 mg/dL (8.5-10.1); CARBON DIOXIDE,CO2 31 mEq/L (21-32); CHLORIDE,CL 85 mEq/L (98-107); CREATININE 1.3 mg/dL (0.7-1.3); ESTIMATED GFR 65 mL/min (>60); GLUCOSE RANDOM 200 mg/dL (70-99); POTASSIUM,K 3.1 mEq/L (3.5-5.1); SODIUM,NA 125 mEq/L (136-145)
[2024-08-12 19:06] LABS: LACTIC ACID 1.6 mmol/L (0.4-2.0)
[2024-08-12] MEDS ORDERED: Naloxone 0.4 MG/ML SDV IVPUSH PRN (20:00)
[2024-08-12] MEDS ORDERED: Acetaminophen 325 MG Tab PO PRN (20:00)
[2024-08-12] MEDS ORDERED: 50% Dextrose in Water 50 ML Syringe IVPUSH PRN (20:11)
[2024-08-12] MEDS ORDERED: Sodium Chloride 0.9% 1,000 ML IV SCH (20:15)
[2024-08-12] MEDS: Morphine 2 MG/ML SYRINGE IVPUSH PRN (21:27)
[2024-08-12] MEDS: Potassium Chloride 10 MEQ in Premix Bag 1 BAG IV SCH (21:30)
[2024-08-12] MEDS: Potassium Chloride 20 MEQ Tab.ER PO ONE (21:31)
[2024-08-12] MEDS: Famotidine 20 MG/2 ML SDV IVPUSH SCH (21:32)
[2024-08-12] MEDS: Insulin Lispro 100 Unit/ML 3 ML KwikPen SUBCUT SCH (21:55)
[2024-08-12 22:29] LABS: APPEARANCE,URINE CLEAR (Clear); BILIRUBIN,URINE 1+ (Negative); COLOR,URINE LIGHT YELLOW (Yellow); GLUCOSE,URINE 2+ (Negative); KETONES,URINE 3+ (Negative); LEUKOCYTE ESTERASE,URINE NEGATIVE (Negative); NITRITE,URINE NEGATIVE (Negative); OCCULT BLOOD,URINE NEGATIVE (Negative); PROTEIN,URINE TRACE (Negative); UROBILINOGEN,URINE 0.2 (0.2-1.0)
[2024-08-12 22:35] LABS: BACTERIA,URINE RARE /hpf (FEW); EPITHELIAL CELLS,URINE NOT SEEN /hpf (0-5); HYALINE CASTS,URINE 0-5 /lpf (0-5); MUCUS,URINE NOT SEEN /hpf (FEW); RBC,URINE 0-5 /hpf (0-5); WBC,URINE 0-5 /hpf (0-5)
[2024-08-12 22:44] LABS: CREATININE,URINE RAND 40.4 mg/dL (30.0-125.0)
[2024-08-13] MEDS: oxyCODONE 5 MG Tab PO PRN (00:30)
[2024-08-13] MEDS: Gabapentin 300 MG Cap PO SCH ×2 (01:39→20:52)
[2024-08-13 06:07] LABS: BASOPHILS PERCENT AUTO 0.3 % (0.0-1.0); EOSINOPHILS ABSOLUTE AUTO 0.1 K/mm3 (0.0-0.4); EOSINOPHILS PERCENT AUTO 0.7 % (0.0-6.0); HEMATOCRIT 28.3 % (42.0-52.0); IMMATURE GRAN ABSOLUTE AUTO 0.03 K/mm3 (0.00-0.05); IMMATURE GRAN PERCENT AUTO 0.3 % (0.0-0.4); LYMPHOCYTES ABSOLUTE AUTO 1.2 K/mm3 (1.0-4.8); LYMPHOCYTES PERCENT AUTO 13.7 % (24.0-44.0); MEAN CORPUSCULAR HEMOGLOBIN 34.5 pg (28.0-32.0); MEAN CORPUSCULAR VOLUME 95.6 fl (83.0-99.0); MEAN PLATELET VOLUME 10.3 fl (9.4-12.4); MONOCYTES ABSOLUTE AUTO 1.1 K/mm3 (0.0-0.8); MONOCYTES PERCENT AUTO 12.7 % (0.0-8.0); NEUTROPHILS ABSOLUTE AUTO 6.3 K/mm3 (1.8-7.7); NEUTROPHILS PERCENT AUTO 72.3 % (41.0-71.0); PLATELET COUNT,PLT 308 K/mm3 (150-400); RED BLOOD CELL COUNT 2.96 M/mm3 (4.52-5.90); WHITE BLOOD CELL COUNT,WBC 8.74 K/mm3 (3.9-11.3)
[2024-08-13 06:11] LABS: HEMOGLOBIN 10.2 gm/dl (14.0-18.0)
[2024-08-13 06:19] LABS: PROTHROMBIN TIME 9.3 SECONDS (9.7-12.0)
[2024-08-13 06:21] LABS: INR < 0.93
[2024-08-13] MEDS: Rivaroxaban 10 MG Tab PO SCH (06:23)
[2024-08-13 06:36] LABS: A/G RATIO 0.6 (1-2); ALBUMIN 2.5 g/dl (3.4-5.0); ANION GAP 18.2 (5-15); BILIRUBIN TOTAL 0.4 mg/dL (0.2-1.0); CALCIUM 8.4 mg/dL (8.5-10.1); EST CRCL DRUG DOSING (CG) 61.64 mL/min; PHOSPHORUS 1.4 mg/dL (2.6-4.7); POTASSIUM,K 4.2 mEq/L (3.5-5.1); PROTEIN TOTAL,TP 6.4 g/dl (6.4-8.2); TSH 1.904 uIU/mL (0.358-3.74)
[2024-08-13] MEDS: Phosphorus #1 250 MG Tab PO SCH (09:09)
[2024-08-13] MEDS: DULoxetine 30 MG Cap PO SCH (09:09)
[2024-08-13] MEDS: Sodium Chloride 0.9% 1,000 ML IV SCH (09:11)
[2024-08-13] MEDS: Sennosides/Docusate Sodium 50-8.6 MG Tab PO PRN (09:20)
[2024-08-13] MEDS ORDERED: Pantoprazole 40 MG in Sodium Chloride 0.9% 100 ML IV ONE (15:15)
[2024-08-13] MEDS: Pantoprazole 40 MG Vial IVPUSH ONE (15:24)
[2024-08-13] MEDS: Ondansetron 4 MG/2 ML SDV IV PRN (15:29)
[2024-08-13] MEDS: Melatonin 3 MG Tab PO PRN (20:52)
[2024-08-14 04:36] LABS: BASOPHILS PERCENT AUTO 0.4 % (0.0-1.0); EOSINOPHILS ABSOLUTE AUTO 0.2 K/mm3 (0.0-0.4); EOSINOPHILS PERCENT AUTO 2.6 % (0.0-6.0); HEMATOCRIT 26.7 % (42.0-52.0); HEMOGLOBIN 9.3 gm/dl (14.0-18.0); IMMATURE GRAN ABSOLUTE AUTO 0.04 K/mm3 (0.00-0.05); IMMATURE GRAN PERCENT AUTO 0.5 % (0.0-0.4); LYMPHOCYTES ABSOLUTE AUTO 1.3 K/mm3 (1.0-4.8); LYMPHOCYTES PERCENT AUTO 15.4 % (24.0-44.0); MEAN CORPUSCULAR HEMOGLOBIN 33.9 pg (28.0-32.0); MEAN CORPUSCULAR HGB CONC 34.8 g/dl (32.0-36.0); MEAN CORPUSCULAR VOLUME 97.4 fl (83.0-99.0); MEAN PLATELET VOLUME 10.1 fl (9.4-12.4); MONOCYTES ABSOLUTE AUTO 1.2 K/mm3 (0.0-0.8); MONOCYTES PERCENT AUTO 14.2 % (0.0-8.0); NEUTROPHILS ABSOLUTE AUTO 5.6 K/mm3 (1.8-7.7); NEUTROPHILS PERCENT AUTO 66.9 % (41.0-71.0); PLATELET COUNT,PLT 308 K/mm3 (150-400); RED BLOOD CELL COUNT 2.74 M/mm3 (4.52-5.90); WHITE BLOOD CELL COUNT,WBC 8.43 K/mm3 (3.9-11.3)
[2024-08-14 04:58] LABS: A/G RATIO 0.7 (1-2); ALBUMIN 2.2 g/dl (3.4-5.0); ANION GAP 11.6 (5-15); BILIRUBIN TOTAL 0.3 mg/dL (0.2-1.0); BUN/CREATININE RATIO 22.5 (14-18); CALCIUM 7.5 mg/dL (8.5-10.1); CREATININE 0.8 mg/dL (0.7-1.3); EST CRCL DRUG DOSING (CG) 77.04 mL/min; POTASSIUM,K 3.6 mEq/L (3.5-5.1); PROTEIN TOTAL,TP 5.6 g/dl (6.4-8.2)
[2024-08-14] MEDS: Pantoprazole 40 MG Tab.CR PO SCH (06:45)
[2024-08-14] MEDS ORDERED: amLODIPine 5 MG Tab PO SCH (09:00)
[2024-08-14 14:56] LABS: HEMOGLOBIN A1C 8.6 %
[2024-08-14] MEDS: Sodium Chloride 0.9% 1,000 ML IV ONE (14:58)
[2024-08-14] MEDS: Calcium Carbonate 500 MG Tab.Chew PO PRN (17:26)
[2024-08-14] MEDS: Midodrine 5 MG Tab PO SCH ×2 (17:27→20:45)
[2024-08-15] MEDS: Midodrine 5 MG Tab PO SCH (11:37)
[2024-08-15 13:58] VITALS: BP 95/62; PULSE 96
[2024-08-16 04:42] LABS: VITAMIN D 1,25 <5.0 pg/mL (19.9-79.3)
== END 2024-08-15 13:05 | disposition home or self-care (01) | DRG 206 ==
LOC: JD.ED 13:12 → JD.MS 20:00
PROVIDERS: ADMIT Student in an Organized Health Care Education/Training Program; ATTEND Student in an Organized Health Care Education/Training Program
DX: S22.32XA Fracture of one rib, left side, initial encounter for closed fracture (principal); C34.90 Malignant neoplasm of unspecified part of unspecified bronchus or lung; E87.1 Hypo-osmolality and hyponatremia; R65.10 Systemic inflammatory response syndrome (SIRS) of non-infectious origin without acute organ dysfunction; J94.8 Other specified pleural conditions; I95.1 Orthostatic hypotension; E78.00 Pure hypercholesterolemia, unspecified; I10 Essential (primary) hypertension; S00.91XA Abrasion of unspecified part of head, initial encounter; F41.9 Anxiety disorder, unspecified; F32.A Depression, unspecified; E11.51 Type 2 diabetes mellitus with diabetic peripheral angiopathy without gangrene; K21.9 Gastro-esophageal reflux disease without esophagitis; M10.9 Gout, unspecified; F17.210 Nicotine dependence, cigarettes, uncomplicated; E87.6 Hypokalemia; K20.90 Esophagitis, unspecified without bleeding; S70.00XA Contusion of unspecified hip, initial encounter; E11.65 Type 2 diabetes mellitus with hyperglycemia; R79.89 Other specified abnormal findings of blood chemistry; N20.0 Calculus of kidney; E83.39 Other disorders of phosphorus metabolism; Z87.81 Personal history of (healed) traumatic fracture; Z86.718 Personal history of other venous thrombosis and embolism; Z79.01 Long term (current) use of anticoagulants; Z98.890 Other specified postprocedural states; Z79.4 Long term (current) use of insulin; Z79.899 Other long term (current) drug therapy
CPT/HCPCS: 36415; 70450; 70450-26; 71045; 71045-26; 71275; 71275-26; 72170; 72170-26; 80048; 80053; 81001; 82570; 82652; 82947; 83036; 83605; 83735; 83930; 83935; 84100; 84300; 84443; 84484; 84540; 85025; 85379; 85610; 87040; 93005; 93306; 93880; 93880-26; 94760; 94761; 96361; 96374; 97116-GP; 97161-GP; 99285-25; A9270-GY; J1171; J1815; J1815-GY; J2270; J2405; J2470; J3480; J3490; J7030; Q9967

== ENCOUNTER 2024-11-21 16:23 | Emergency (ER) | payer MEDICAID ==
[2024-11-21 16:34] VITALS: PULSE 108
[2024-11-21 17:08] LABS: BASOPHILS ABSOLUTE AUTO 0.1 K/mm3 (0.0-0.2); BASOPHILS PERCENT AUTO 1.4 % (0.0-1.0); EOSINOPHILS ABSOLUTE AUTO 0.1 K/mm3 (0.0-0.4); EOSINOPHILS PERCENT AUTO 0.6 % (0.0-6.0); HEMOGLOBIN 12.8 gm/dl (14.0-18.0); IMMATURE GRAN ABSOLUTE AUTO 0.02 K/mm3 (0.00-0.05); IMMATURE GRAN PERCENT AUTO 0.3 % (0.0-0.4); LYMPHOCYTES ABSOLUTE AUTO 1.6 K/mm3 (1.0-4.8); LYMPHOCYTES PERCENT AUTO 20.4 % (24.0-44.0); MEAN CORPUSCULAR HEMOGLOBIN 32.8 pg (28.0-32.0); MEAN CORPUSCULAR HGB CONC 33.7 g/dl (32.0-36.0); MEAN CORPUSCULAR VOLUME 97.4 fl (83.0-99.0); MEAN PLATELET VOLUME 9.3 fl (9.4-12.4); MONOCYTES ABSOLUTE AUTO 0.6 K/mm3 (0.0-0.8); MONOCYTES PERCENT AUTO 7.9 % (0.0-8.0); NEUTROPHILS ABSOLUTE AUTO 5.4 K/mm3 (1.8-7.7); NEUTROPHILS PERCENT AUTO 69.4 % (41.0-71.0); PLATELET COUNT,PLT 347 K/mm3 (150-400); WHITE BLOOD CELL COUNT,WBC 7.71 K/mm3 (3.9-11.3)
[2024-11-21 17:32] LABS: A/G RATIO 0.8 (1-2); ALBUMIN 3.1 g/dl (3.4-5.0); ANION GAP 10.4 (5-15); BILIRUBIN TOTAL 0.7 mg/dL (0.2-1.0); BUN/CREATININE RATIO 12.5 (14-18); CALCIUM 9.2 mg/dL (8.5-10.1); CREATININE 0.8 mg/dL (0.7-1.3); EST CRCL DRUG DOSING (CG) 81.39 mL/min; POTASSIUM,K 3.4 mEq/L (3.5-5.1); PROTEIN TOTAL,TP 6.9 g/dl (6.4-8.2)
[2024-11-21 19:21] VITALS: BP 137/90
== END 2024-11-21 20:31 | disposition home or self-care (01) ==
LOC: JD.ED 16:23
DX: I10 Essential (primary) hypertension (principal); E11.40 Type 2 diabetes mellitus with diabetic neuropathy, unspecified; Z79.01 Long term (current) use of anticoagulants; Z79.899 Other long term (current) drug therapy
CPT/HCPCS: 36415; 71045; 71045-26; 80053; 80307; 83690; 84484; 85025; 93005; 99285

== ENCOUNTER 2025-02-08 19:09 | Emergency (ER) | payer MEDICAID ==
[2025-02-08 19:41] VITALS: BP 182/90; PULSE 0
== END 2025-02-09 06:53 | disposition expired ==
LOC: MERGE 19:09 → JD.ED 19:09
DX: I46.9 Cardiac arrest, cause unspecified (principal); E10.9 Type 1 diabetes mellitus without complications
CPT/HCPCS: 92950; 99285; J0282; 31500; J0171; J3490